=== PATIENT | male | born 1955 | race Caucasian/White ===

== ENCOUNTER → 2018-05-23 08:37 | Outpatient (CLI) | payer OTHER, SELFPAY | PROVIDERS: Family Provider Family Medicine; PCP Family Medicine; Visit Provider Nurse Practitioner Family | DX: E78.5 Hyperlipidemia, unspecified (principal) | CPT/HCPCS: 36415 ==

== ENCOUNTER → 2018-12-26 10:11 | Outpatient (CLI) | payer OTHER, SELFPAY ==
[2018-07-15 11:54] VITALS: BMI 26.9
[2018-12-26 12:43] LABS: ALB/GLOB Ratio 1.1 RATIO (0.9-2.4); AST(SGOT) 25 U/L (15-37); Alanine Aminotransfer ALT/SGPT 23 U/L (16-61); Albumin, Serum 3.8 g/dL (3.2-5.0); Alkaline Phosphatase 90 U/L (45-117); Anion Gap 11 (5-15); BUN 23 mg/dL (7-18); BUN/Creat Ratio 24.1 RATIO (10-20); Calcium,Total 8.7 mg/dL (8.5-10.1); Chloride 105 mmol/L (98-107); Creatinine, Serum 0.96 mg/dL (0.70-1.30); EST Glomerular Filtration Rate 84 mL/min (>60); Est Glom Filt Rate - Afr Amer 102 mL/min (>60); Globulin 3.5 g/dL (2.2-4.2); Glucose 86 mg/dL (74-106); Protein, Total 7.3 g/dL (6.4-8.2); Sodium Level 143 mmol/L (136-145)
== END ==
PROVIDERS: Family Provider Family Medicine; PCP Family Medicine; Referring Provider Family Medicine; Visit Provider Family Medicine
DX: E78.5 Hyperlipidemia, unspecified (principal); N40.0 Benign prostatic hyperplasia without lower urinary tract symptoms
CPT/HCPCS: 36415; 80053; 84153; G0103

== ENCOUNTER → 2019-08-22 09:28 | Outpatient (CLI) | payer MEDICARE, OTHER, SELFPAY ==
[2019-02-02 15:34] VITALS: BMI 28.5
[2019-08-22 12:06] LABS: Hemoglobin 16.1 g/dL (13.0-16.5); Mean Corp Hgb Conc 33.5 g/dL (32-36); Mean Corpuscular Hgb 31.5 pg (27.0-32.0); Mean Corpuscular Volume 93.9 fL (80-94); Mean Platelet Vol. 9.3 fl (6.2-12.0); Platelet Count 192 K/mm3 (150-450); RBC Distribution Width CV 14.1 % (11.6-14.6); RBC Distribution Width SD 49.3 fl (35.1-43.9); Red Blood Count 5.11 M/mm3 (4.6-6.2); White Blood Count 6.9 K/mm3 (4.4-11.0)
[2019-08-22 13:09] LABS: AST(SGOT) 32 U/L (15-37); Alanine Aminotransfer ALT/SGPT 31 U/L (16-61); Albumin, Serum 3.7 g/dL (3.2-5.0); Alkaline Phosphatase 92 U/L (45-117); Bilirubin, Direct 0.25 mg/dL (0.00-0.30); Cholesterol 180 mg/dL (200); Globulin 3.7 g/dL (2.2-4.2); High Density Lipoprotein 57 mg/dL; Protein, Total 7.4 g/dL (6.4-8.2); Triglycerides 125 mg/dL; Very Low Density Lipoprotein 25 mg/dL (5-40)
[2019-08-22 13:09] LABS: Anion Gap 10 (5-15); BUN 24 mg/dL (7-18); BUN/Creat Ratio 22.4 RATIO (10-20); Calcium,Total 8.6 mg/dL (8.5-10.1); Chloride 105 mmol/L (98-107); Creatinine, Serum 1.07 mg/dL (0.70-1.30); EST Glomerular Filtration Rate 74 mL/min (>60); Est Glom Filt Rate - Afr Amer 89 mL/min (>60); Glucose 86 mg/dL (74-106); Magnesium 2.1 mg/dL (1.6-2.6); Potassium 4.1 mmol/L (3.5-5.1); Sodium Level 139 mmol/L (136-145)
[2019-08-23 14:30] LABS: PSA, Free 1.05 ng/mL; PSA, Free % 7.1 % (.); PSA, Total Ultrasensitive 14.8 ng/mL (0.0-4.0)
== END ==
PROVIDERS: PCP Family Medicine; Referring Provider Family Medicine; Visit Provider Physician Assistant Medical
DX: I25.10 Atherosclerotic heart disease of native coronary artery without angina pectoris (principal); I10 Essential (primary) hypertension; E78.5 Hyperlipidemia, unspecified; Z95.2 Presence of prosthetic heart valve; R00.0 Tachycardia, unspecified; N40.0 Benign prostatic hyperplasia without lower urinary tract symptoms
CPT/HCPCS: 36415; 80048; 80061; 80076; 83735; 84153; 84154; 84443; 85027

== ENCOUNTER → 2019-08-22 09:56 | Outpatient (CLI) | payer MEDICARE, OTHER, SELFPAY ==
[2019-02-02 15:34] VITALS: BMI 28.5
--- NOTE | 2019-08-22 09:57 | ECHOCS_ITS ---
Reason For Study: BICUSPID AV Procedure This was a 2D Doppler, Color Flow transthoracic echocardiogram. The study was technically difficult. Contrast injection was performed. Exam performed in department. Left Ventricle Normal size and thickness. The estimated ejection fraction is 65 %. Stage 1 diastolic dysfunction. No regional wall motion abnormalities noted. Right Ventricle Normal size and thickness. Normal systolic function. Atria Normal left atrium. Normal right atrium. Normal atrial septum. Mitral Valve The mitral valve is structurally normal. No prolapse or stenosis seen. Tricuspid Valve Normal tricuspid valve. Trivial tricuspid valve insufficiency. Right ventricular systolic pressure estimated to be 29 mmHg. Aortic Valve Peak aortic valve gradient 23 mmHg. Mean aortic valve gradient 12 mmHg. Stable appearing bioprosthetic aortic valve apparatus. Pulmonic Valve Normal pulmonic valve. Great Vessels Normal aortic root. Normal arch. Normal inferior vena cava. Inferior vena cava collapse with sniff. Pericardium/Pleural No pericardial effusion. Medication 22 gauge I.V. with prn adaptor inserted into right arm. Diluted definity 2.5ml given slow IV push to enhance endocardial definition. MMode/2D Measurements & Calculations RVDd: 3.5 cm LVOT diam: 2.0 cm Ao root diam: 3.5 cm LVOT area: 3.1 cm2 LAV(MOD-bp): 37.1 ml SV(MOD-sp4): 58.1 ml LVAd ap4: 28.1 cm2 LAV(MOD-bp) Indexed: 17.3 ml/m2 EDV(MOD-sp4): 82.7 ml LAV(MOD-sp2): 28.0 ml EDV(sp4-el): 89.1 ml LAV(MOD-sp4): 43.4 ml LVAs ap4: 13.4 cm2 ESV(MOD-sp4): 24.6 ml ESV(sp4-el): 24.2 ml EF(MOD-sp4): 70.2 % EF(sp4-el): 72.8 % SV(sp4-el): 64.9 ml LA dimension(2D): 3.8 cm LA A4 area: 16.8 cm2 RA A4 area: 15.3 cm2 Time Measurements MV dec time: 0.29 sec Doppler Measurements & Calculations MV E max leonel: 65.1 cm/sec Lat Peak E' Leonel: 6.7 cm/sec Med Peak E' Leonel: 4.9 cm/sec MV A max leonel: 76.1 cm/sec E/E' lat: 9.7 E/E' med: 13.3 MV E/A: 0.86 Ao V2 max: 240.9 cm/sec LV V1 max: 124.8 cm/sec SV(LVOT): 85.1 ml Ao max P.2 mmHg LV V1 max P.2 mmHg Ao V2 mean: 161.1 cm/sec LV V1 mean P.2 mmHg Ao mean P.7 mmHg LV V1 mean: 98.6 cm/sec Ao V2 VTI: 39.7 cm LV V1 VTI: 27.2 cm TAINA(I,D): 2.1 cm2 TAINA(V,D): 1.6 cm2 PA V2 max: 93.2 cm/sec TR max leonel: 242.9 cm/sec TR max P.6 mmHg Interpretation Summary The estimated ejection fraction is 65 %. Stage 1 diastolic dysfunction. Trivial tricuspid valve insufficiency. Right ventricular systolic pressure estimated to be 29 mmHg. Stable appearing and normally functioning bioprosthetic aortic valve apparatus. Peak aortic valve gradient 23 mmHg. Mean aortic valve gradient 12 mmHg. Compared to echo report dated 04/15/2017, no appreciable change noted. The study was technically difficult. Contrast injection was performed. Ordering Physician: Valorie Dimas/Joey Dempsey Referring Physician: TOM VICKERS Performed By: Audrey Becker RDCS, RVT
== END ==
PROVIDERS: PCP Family Medicine; Referring Provider Physician Assistant Medical; Visit Provider Physician Assistant Medical
DX: I25.10 Atherosclerotic heart disease of native coronary artery without angina pectoris (principal); I10 Essential (primary) hypertension; E78.5 Hyperlipidemia, unspecified; Q23.1 Congenital insufficiency of aortic valve; Z95.2 Presence of prosthetic heart valve; N40.0 Benign prostatic hyperplasia without lower urinary tract symptoms; R00.0 Tachycardia, unspecified
CPT/HCPCS: 36415; 80048; 80061; 80076; 83735; 84153; 84154; 84443; 85027; 93306; Q9957; A4216; C8929

== ENCOUNTER → 2019-09-28 | Outpatient (CLI) | payer MEDICARE, OTHER, SELFPAY ==
[2019-02-02 15:34] VITALS: BMI 28.5
--- NOTE | 2019-09-28 | PROSBIL_PTH ---
PATIENT: FENG PARK LOC: [facility] U#:[id number] AGE/SX: 64/M ROOM: RE09/28/[address]: Dr. Johnnie Beyer MD : 1955 BED: DIS: 09/28/2019 SPEC #: [id number] RECD: 09/29/19 10:20 STATUS: DUGLAS INDRA #: [id number] WONG: 09/28/19 00:[address]: Johnnie Beyer DEPT: SURGICAL PATHOLOGY RECD BY: Marco Duff ENTERED: 09/29/19 10:21 SP TYPE: PROST BX RA DR: Dr. Everett Atnonio MD Tissues: A - PROSTATE RIGHT B - PROSTATE RIGHT C - PROSTATE RIGHT D - PROSTATE LEFT E - PROSTATE LEFT F - PROSTATE LEFT Procedures: PROSTATE BX HEADER OPERATION: Prostate biopsy PRE-OP DIAGNOSIS: Elevated PSA TISSUE SUBMITTED: A - Right apex, B - Right mid, C - Right base, D - Left apex, E - Left mid, F - Left base MICROSCOPIC DIAGNOSIS A. Right prostate, apex, core biopsy: Prostatic tissue, negative for malignancy. B. Right prostate, mid, core biopsy: Prostatic tissue, negative for malignancy. C. Right prostate, base, core biopsy: Prostatic tissue, negative for malignancy. D. Left prostate, apex, core biopsy: Prostatic tissue, negative for malignancy. E. Left prostate, mid, core biopsy: Prostatic tissue, negative for malignancy. F. Left prostate, base, core biopsy: Prostatic tissue, negative for malignancy. SJ:britni 10/02/19 MICROSCOPIC DESCRIPTION Slides are reviewed. GROSS DESCRIPTION A - Received is one container designated prostate, right apex. The specimen consists of one elongated fragment of light rivera-white soft tissue measuring 0.7 cm in length and 0.1 cm in diameter. The specimen is totally submitted in one cassette. B - Received is one container designated prostate, right mid. The specimen consists of two elongated fragments of light rivera-white soft tissue each measuring 1 cm in length and 0.1 cm in diameter. The specimen is totally submitted in one cassette. C - Received is one container designated prostate, right base. The specimen consists of two elongated fragments of light rivera-white soft tissue measuring 1 and 1.5 cm in length and 0.1 cm in diameter. The specimen is totally submitted in one cassette. D - Received is one container designated prostate, left apex. The specimen consists of one elongated fragment of light rivera-white soft tissue measuring 0.5 cm in length and 0.1 cm in diameter. The specimen is totally submitted in one cassette. E - Received is one container designated prostate, left mid. The specimen consists of two elongated fragments of light rivera-white soft tissue each measuring 0.8 cm in length and 0.1 cm in diameter. The specimen is totally submitted in one cassette. F - Received is one container designated prostate, left base. The specimen consists of two elongated fragments of light rivera-white soft tissue measuring 0.8 and 1.2 cm in length and 0.1 cm in diameter. The specimen is totally submitted in one cassette. / SJ:rg 09/29/19 TC:5 CPT: G0146
== END | disposition home or self-care (01) ==
LOC: LABSPEC 16:22
PROVIDERS: PCP Family Medicine; Referring Provider Urology; Visit Provider Urology
DX: R97.20 Elevated prostate specific antigen [PSA] (principal)
CPT/HCPCS: 88305; G0416

== ENCOUNTER → 2020-01-15 | Outpatient (CLI) | payer MEDICARE, OTHER, SELFPAY ==
[2019-02-02 15:34] VITALS: BMI 28.5
--- NOTE | 2020-01-15 07:47 | US_ITS ---
PROCEDURES: ULTRASOUND AORTA REASON FOR EXAM: Male, 64 years old. HX OF TOBACCO USE, HTN TECHNIQUE: Ultrasound evaluation of the aorta was performed with real-time and static rebollar-scale imaging. COMPARISON: None. FINDINGS: There is atherosclerotic plaque formation of the abdominal aorta. Aorta measures: Proximal 1.76 cm. Middle 1.93 cm. Distal 2.12 cm. Aorta measure transversely: Proximal 1.52 cm. Middle 2.25 cm. Distal 2.04 cm. Right iliac artery measures: 0.5 cm. Right iliac artery measure transversely: 0.9 cm. Left iliac artery measures: 0.5 cm. Left iliac artery measure transversely: 0.6 cm. There is no demonstrated aneurysm.. US/Aorta IMPRESSION: Peripheral calcifications of the abdominal aorta without aneurysm Electronically Signed: Michlee Guzman MD at 10:28 EDT , Service support ,
--- NOTE | 2020-01-15 07:47 | CT_ITS ---
STUDY: LOW DOSE CT LUNG CANCER SCREENING REASON FOR EXAM: Male, 64 years old. TOBACCO ABUSE, QUIT SMOKING 3 YRS AGO, SMOKED FOR 47 YRS X 1.5 PPD, RB=192, CABG RADIATION DOSAGE (If Supplied By Facility): CTDIvol = ( 3.02 ) mGy, DLP = ( 110.98 ) mGycm TECHNIQUE: No contrast was administered. Low dose technique was utilized (average mAS-38 and kVp 120). 1.25 mm axial source images with a slice interval of 1.25-mm were reconstructed in lung windows. 2.5 mm axial source images with a slice interval of 2.5-mm were reconstructed in lung windows. 5.0 mm axial source images with a slice interval of 5.0-mm were reconstructed in soft tissue windows. Nodule measured using lung windows on PACS and/or independent workstation with automated measurement of minimum and maximum diameter. Nodule measurement reported as average diameter rounded to the nearest whole number. Growth is defined as an increase ins size of greater than 1.5 mm. COMPARISON: Previous plain films NODULES: Lung windows show mildly hyperexpanded lungs with lead formation in the apices. There are 2 separate noncalcified right middle lobe nodules. Both measure 0.4 cm. One is located on axial image 152, the other image 169. Six-month follow-up recommended to assure stability. There is no organized drainable or suspicious groundglass opacification, there is likely chronic elevation of the left hemidiaphragm. There has been remote CABG. No pleural or pericardial effusions. There is a prominent retrocardiac hiatal hernia. Bony structures degenerative change CT/Low Dose CT Lung Screening IMPRESSION: Lung-RADS category 3 - Continue screening with LDCT in 6 months. IMPORTANT NOTES FOR USE: ACR Lung-RADS Version 1.0 Assessment Categories Release Date: September 25, 2013 Category: Coded 0-4 bases on nodule(s) with highest degree of suspicion. Negative screen is defined as categories 1 and 2; a positive screen is defined as categories 3 and 4. Category 3 and 4A nodules that are unchanged on interval CT should be coded as category 2, and individuals returned to screening in 12 months. Category 4X: Category 3 or 4 nodules with additional imaging findings that increase the suspicion of lung cancer, such as spiculation, GGN that doubles in size in 1 year, enlarged lymph notes, etc. Category Modifiers: S (significant finding unrelated to lung cancer) and C (prior history of treated lung cancer) may be added to the 0-4 Lung-RADS Electronically Signed: Michele Guzman MD at 10:19 EDT , Service support ,
== END | disposition home or self-care (01) ==
LOC: CT 07:46
PROVIDERS: PCP Family Medicine; Referring Provider Family Medicine; Visit Provider Family Medicine
DX: Z13.6 Encounter for screening for cardiovascular disorders (principal); Z87.891 Personal history of nicotine dependence
CPT/HCPCS: 76775; G0297

== ENCOUNTER → 2020-04-08 09:52 | Outpatient (CLI) | payer MEDICARE, OTHER, SELFPAY ==
[2019-02-02 15:34] VITALS: BMI 28.5
== END ==
PROVIDERS: PCP Family Medicine; Referring Provider Urology; Visit Provider Urology
DX: R97.20 Elevated prostate specific antigen [PSA] (principal)
CPT/HCPCS: 36415; 84153

== ENCOUNTER → 2020-04-12 09:48 | Outpatient (CLI) | payer MEDICARE, OTHER, SELFPAY ==
[2019-02-02 15:34] VITALS: BMI 28.5
[2020-04-12 10:25] LABS: Hematocrit 46.6 % (40-54); Mean Corp Hgb Conc 32.2 g/dL (32-36); Mean Corpuscular Hgb 30.5 pg (27.0-32.0); Mean Corpuscular Volume 94.7 fL (80-94); Mean Platelet Vol. 8.8 fl (6.2-12.0); Platelet Count 219 K/mm3 (150-450); RBC Distribution Width CV 13.9 % (11.6-14.6); RBC Distribution Width SD 48.8 fl (35.1-43.9); Red Blood Count 4.92 M/mm3 (4.6-6.2)
[2020-04-12 11:03] LABS: AST(SGOT) 17 U/L (15-37); Alanine Aminotransfer ALT/SGPT 20 U/L (16-61); Albumin, Serum 3.4 g/dL (3.2-5.0); Alkaline Phosphatase 101 U/L (45-117); Anion Gap 6 (5-15); BUN 21 mg/dL (7-18); BUN/Creat Ratio 19.1 RATIO (10-20); Bilirubin, Direct 0.22 mg/dL (0.00-0.30); Calcium,Total 8.5 mg/dL (8.5-10.1); Chloride 106 mmol/L (98-107); Cholesterol 154 mg/dL (200); EST Glomerular Filtration Rate 71 mL/min (>60); Est Glom Filt Rate - Afr Amer 86 mL/min (>60); Globulin 3.9 g/dL (2.2-4.2); Glucose 91 mg/dL (74-106); High Density Lipoprotein 49 mg/dL; Potassium 3.3 mmol/L (3.5-5.1); Protein, Total 7.3 g/dL (6.4-8.2); Sodium Level 139 mmol/L (136-145); Triglycerides 100 mg/dL; Very Low Density Lipoprotein 20 mg/dL (5-40)
== END ==
PROVIDERS: PCP Family Medicine; Referring Provider Urology; Visit Provider Urology
DX: Z01.812 Encounter for preprocedural laboratory examination (principal); E78.00 Pure hypercholesterolemia, unspecified
CPT/HCPCS: 36415; 80048; 80061; 80076; 85027

== ENCOUNTER → 2020-04-12 09:50 | Outpatient (CLI) | payer MEDICARE, OTHER, SELFPAY ==
[2019-02-02 15:34] VITALS: BMI 28.5
== END ==
PROVIDERS: PCP Family Medicine; Referring Provider Urology; Visit Provider Urology
DX: Z01.812 Encounter for preprocedural laboratory examination (principal); Z20.828 Contact with and (suspected) exposure to other viral communicable diseases; E78.00 Pure hypercholesterolemia, unspecified; E78.5 Hyperlipidemia, unspecified
CPT/HCPCS: 36415; 80048; 80061; 80076; 85027; 87635; C9803; U0003

== ENCOUNTER → 2020-04-19 | Outpatient (CLI) | payer MEDICARE, OTHER, SELFPAY ==
[2019-02-02 15:34] VITALS: BMI 28.5
--- NOTE | 2020-04-19 | IMM_PTH ---
PATIENT: FENG PARK LOC: [facility] U#:[id number] AGE/SX: 64/M ROOM: RE04/19/[address]: Dr. Johnnie Beyer MD : 1955 BED: DIS: 04/19/2020 SPEC #: [id number] RECD: 04/23/20 13:55 STATUS: DUGLAS REQ #: [id number] WONG: 04/19/20 00:[address]: Johnnie Beyer DEPT: IMMUNOHISTOCHEMISTRY RECD BY: Hawa Garsia ENTERED: 04/23/20 13:56 SP TYPE: IMMUNO OTHR DR: Dr. Everett Antonio MD Tissues: D - PROSTATE LEFT E - PROSTATE LEFT Procedures: 34BE12 (add) P40 (add) 34BE12 (initial) PHYSICIAN & INSTITUTION [place] [id number] SPECIMEN INFORMATION: Tissue Source: D - Left prostate, base, core biopsy, E - Left prostate, mid, core biopsy Clinical Info: BPH with lower urinary tract symptoms, elevated PSA Specimen Number: [id number] D & E CPT code: 11240, 17791 x3 METHODOLOGY: Deparaffinized sections of prefer/formalin-fixed tissue or PAP/DQ stained slides are incubated with monoclonal/polyclonal antibodies/oligonucleotide probes. Localization is made via biotin free immunoperoxidase method. Appropriate controls are performed and reacted as expected. Results on target cell population are indicated in the following table: RESULTS: ANTIBODY / CLONE RESULT Block D P40 (BC28) negative 34BE12 (34BE12) negative Block E P40 (BC28) negative 34BE12 (34BE12) negative These tests were developed and their performance characteristics determined by [facility]. They may not have been cleared or approved by the U.S. Food and Drug Administration. The FDA has determined that such clearance or approval is not necessary. The above immunohistochemical/dualISH markers are ordered and reviewed by the Pathologist. INTERPRETATION: D. Left prostate, base, core biopsy: Adenocarcinoma. E. Left prostate, mid, core biopsy: Adenocarcinoma. SJ:britni 04/24/20
--- NOTE | 2020-04-19 09:21 | PROSBIL_PTH ---
PATIENT: FENG PARK LOC: [facility] U#:[id number] AGE/SX: 64/M ROOM: RE04/19/[address]: Dr. Johnnie Beyer MD : 1955 BED: DIS: 04/19/2020 SPEC #: [id number] RECD: 04/19/20 15:18 STATUS: DUGLAS INDRA #: [id number] WONG: 04/19/20 09:[address]: Johnnie Beyer DEPT: SURGICAL PATHOLOGY RECD BY: Pam Wynn ENTERED: 04/22/20 07:31 SP TYPE: PROST BX RA DR: Dr. Everett Antonio MD [facility] Tissues: A - PROSTATE RIGHT B - PROSTATE RIGHT C - PROSTATE RIGHT D - PROSTATE LEFT E - PROSTATE LEFT F - PROSTATE LEFT Procedures: PROSTATE BX HEADER OPERATION: Cystoscopy and transrectal ultrasound-guided biopsy of prostate PRE-OP DIAGNOSIS: BPH with lower urinary tract symptoms, elevated PSA TISSUE SUBMITTED: A - Right base, B - Right mid, C - Right apex, D - Left base, E - Left mid, F - Left apex MICROSCOPIC DIAGNOSIS A. Right prostate, base, core biopsy: Mild chronic inflammation. B. Right prostate, mid, core biopsy: Mild chronic inflammation. C. Right prostate, apex, core biopsy: Benign prostatic tissue. D. Left prostate, base, core biopsy: Adenocarcinoma. Xi grade: 6 (3+3) Cores involved: 1 out of 3 Tissue involved: 20% Greatest tumor length: 4.5 millimeters (discontinuous). See comment. E. Left prostate, mid, core biopsy: Adenocarcinoma. Xi grade: 6 (3+3) Cores involved: 1 out of 4 Tissue involved: 5% Greatest tumor length: 2.8 millimeters (discontinuous). See comment. F. Left prostate, apex, core biopsy: Mild chronic inflammation. AM:britni 04/23/20 COMMENT D & E. Immunohistochemistry ([id number]) supports the above diagnosis. MICROSCOPIC DESCRIPTION Slides are reviewed. GROSS DESCRIPTION A - Received is one container designated prostate, right base. The specimen consists of three elongated fragments of light rivera-white soft tissue each measuring 1.5 cm in length and 0.1 cm in diameter. The specimen is totally submitted in one cassette. B - Received is one container designated prostate, right mid. The specimen consists of three elongated fragments of light rivera-white soft tissue each measuring 1 cm in length and 0.1 cm in diameter. The specimen is totally submitted in one cassette. C - Received is one container designated prostate, right apex. The specimen consists of two elongated fragments of light rivera-white soft tissue each measuring 1 cm in length and 0.1 cm in diameter. The specimen is totally submitted in one cassette. D - Received is one container designated prostate, left base. The specimen consists of three elongated fragments of light rivera-white soft tissue each measuring 1.5 cm in length and 0.1 cm in diameter. The specimen is totally submitted in one cassette. E - Received is one container designated prostate, left mid. The specimen consists of two elongated fragments of light rivera-white soft tissue each measuring 1 cm in length and 0.1 cm in diameter. The specimen is totally submitted in one cassette. F - Received is one container designated prostate, left apex. The specimen consists of multiple irregular and elongated fragments of pink-yellow soft tissue that in aggregate measure 2 x 1.5 x 0.1 cm. The specimen is totally submitted in one cassette. / AM:britni 04/22/20 TC:0 CPT: G0146
== END | disposition home or self-care (01) ==
LOC: LABSPEC 16:00
PROVIDERS: PCP Family Medicine; Referring Provider Urology; Visit Provider Urology
DX: N40.1 Benign prostatic hyperplasia with lower urinary tract symptoms (principal); R97.20 Elevated prostate specific antigen [PSA]
CPT/HCPCS: 88305; 88341; 88342; G0416

== ENCOUNTER → 2020-05-03 06:43 | Outpatient (CLI) | payer MEDICARE, OTHER, SELFPAY ==
[2019-02-02 15:34] VITALS: BMI 28.5
--- NOTE | 2020-05-03 06:44 | CT_ITS ---
STUDY: CT ABDOMEN AND PELVIS WITH CONTRAST REASON FOR EXAM: Male, 64 years old. PROSTATE CA--ELEVATED PSA -- SURG-CABG -- +HTN-RX CONTROLLED RADIATION DOSAGE (If Supplied By Facility): CTDIvol = ( 16.75 ) mGy, DLP = ( 860.19 ) mGycm TECHNIQUE: Transaxial images were obtained from the dome of the diaphragm to the symphysis pubis without oral contrast. IV 100mL Isovue-370 was administered. Sagittal and coronal images were reconstructed. Individualized dose optimization techniques were used for this CT. COMPARISON: Chest CT 01/15/2020 FINDINGS: Small nodules in the right middle lobe are grossly similar since prior chest CT. Mild fibrotic changes in the lung bases. The visualized portions of the heart are within normal limits. Well-defined simple cysts of the left hepatic lobe are stable since prior CT. No suspicious cystic or solid hepatic masses. Normal gallbladder and extrahepatic biliary system. Normal spleen. Normal pancreas. Normal bilateral adrenal glands. Normal right kidney. Normal left kidney. Normal visualized stomach. Normal small intestine. There are multiple colonic diverticula consistent with diverticulosis. The appendix is visualized and appears normal. There is diffuse atherosclerotic calcification of the abdominal aorta, without a demonstrated aneurysm. Normal inferior vena cava. Normal retroperitoneum. Poorly distended urinary bladder. There prostate calcifications. No pelvic sidewall adenopathy/solid mass. Normal abdominal wall. There is a 6 mm sclerotic lesion of the left side of the sacrum. Degenerative changes of the lumbar spine. CT/Abdomen/Pelvis WITH Contrast IMPRESSION: 1. No intra-abdominal/pelvic mass/metastasis. 2. 6 mm sclerotic lesion of the left side of the sacrum. Although nonspecific, likely represents a bone island. If there is clinical suspicion for osseous metastasis, recommend bone scan and/or pelvic MRI. Electronically Signed: Favian Garibay MD ([place]) at 12:04 EST , Service support ,
== END ==
PROVIDERS: PCP Family Medicine; Referring Provider Urology; Visit Provider Urology
DX: C61 Malignant neoplasm of prostate (principal)
CPT/HCPCS: 74177; Q9967

== ENCOUNTER → 2020-05-06 08:21 | Outpatient (CLI) | payer MEDICARE, OTHER, SELFPAY ==
[2019-02-02 15:34] VITALS: BMI 28.5
--- NOTE | 2020-05-06 08:22 | NM_ITS ---
CLINICAL: 64-year-old male history of carcinoma of the prostate. WHOLE BODY 99m Tc MDP RADIONUCLIDE BONE SCINTIGRAPHY COMPARISON: CT of the abdomen-pelvis report 05/03/2020 FINDINGS: Following the intravenous administration of 25.8 mCi of 99m Tc MDP, whole body bone images reveal: 1. Increased radiopharmaceutical concentration is defined in the mid cervical spine posteriorly on the left and right, first and ninth thoracic vertebra, second lumbar vertebra, bilateral wrists and hands, the acromioclavicular and sternoclavicular compartments of both shoulders, the left hip involving the inferior anterior acetabulum. 2. Intense increased tracer concentration is defined in the right upper extremity in the distribution of the distal brachium crossing the apparent joint space to the proximal antebrachial. 3. The remaining skeletal structures are scintigraphically unremarkable with normal-appearing renal images and urinary bladder activity identified. NM/Bone Scan Whole Body IMPRESSION: 1. The increase in radiopharmaceutical concentration defined in the cervical, thoracic and lumbar spine, bilateral shoulders, right and left wrists, both hands is most consistent with degenerative arthritis. 2. Facilitated radiotracer distribution defined in the right upper extremity likely represents injection artifact. Correlation with plain film radiography may be of benefit if clinically indicated. 3. There is no definitive typical scintigraphic evidence of diffuse axial skeletal metastatic disease on the current examination. Electronically Signed: Brock Washburn DO at 22:20 EST Tel , Service support ,
== END ==
PROVIDERS: PCP Family Medicine; Referring Provider Urology; Visit Provider Urology
DX: C61 Malignant neoplasm of prostate (principal)
CPT/HCPCS: 78306

== ENCOUNTER 2020-06-19 05:51 | Day surgery (SDC) | payer MEDICARE, OTHER, SELFPAY ==
[2019-02-02 15:34] VITALS: BMI 28.5
--- NOTE | 2020-06-14 08:17 | EKG12_ITS ---
Test Reason : PRE OP Blood Pressure : / mmHG Vent. Rate : 082 BPM Atrial Rate : 082 BPM P-R Int : 174 ms QRS Dur : 128 ms QT Int : 422 ms P-R-T Axes : 051 148 022 degrees QTc Int : 493 ms Normal sinus rhythm Right bundle branch block Left posterior fascicular block Bifascicular block Abnormal ECG Confirmed by ARISTIDES LEGER, MIC ([id number]), film editor VALERIE HERNANDEZ ([id number]) on 06/17/2020 10:47:23 AM Referred By: Johnnie Beyer Confirmed By:MIC IRVING MD
[2020-06-14 08:41] LABS: Potassium 4.2 mmol/L (3.5-5.1)
[2020-06-14 08:49] LABS: Partial Thromboplast Time 26.8 Seconds (24.1-36.2)
[2020-06-19] VITALS (14 sets, daily range): BP systolic 81–134; BP diastolic 52–102; PULSE 72–98; RESP 16–20; TEMP 36.1–36.7; O2SAT 92–99; BMI 24.5
--- NOTE | 2020-06-19 | PROST_PTH ---
PATIENT: FENG PARK LOC: [facility] [place] U#:[id number] AGE/SX: 64/M ROOM: RE06/19/[address]: Dr. Johnnie Beyer MD : 1955 BED: DIS: 06/20/2020 SPEC #: [id number] RECD: 06/19/20 11:46 STATUS: DUGLAS REKrista #: [id number] WONG: 06/19/20 00:[address]: Johnnie Beyer DEPT: SURGICAL PATHOLOGY RECD BY: Marco Duff ENTERED: 06/20/20 07:08 SP TYPE: PROSTATE OTHR DR: Dr. Everett Antonio MD Tissues: A - Prostate, NOS B - Adipose tissue Procedures: Surgery Specimen Level III Surgery Specimen Level HEADER OPERATION: Laparoscopic robotic assisted radical prostatectomy PRE-OP DIAGNOSIS: Prostate cancer TISSUE SUBMITTED: A - Prostate, B - Fat over prostate MICROSCOPIC DIAGNOSIS A. Prostate, radical prostatectomy: Prostatic adenocarcinoma. See cancer summary in the comment section. B. Fat over prostate: Negative for carcinoma. SJ:rg 06/21/20 COMMENT PROSTATE CANCER (RADICAL) SUMMARY Procedure: Radical Prostatectomy Prostate Size: Weight: 46 gm Size: 5 cm transversely, 4 cm anterior-posteriorly and 4 cm craniocaudally Histologic type: Acinar adenocarcinoma Histologic grade: Grade group 2 (Lothian score 3+4=7) Tumor Quantitation: Estimated percent of the prostate involved by tumor: ~30% Tumor size: Right lobe 2.5 x 1 x 0.5 cm (measured microscopically with focal area of discontinuous tumor) Left lobe 2.8 x 2 x 1 cm (measured microscopically) Extraprostatic Extension: Not identified Urinary Bladder Neck Invasion: Not identified Seminal Vesicle Invasion: Not identified Lymphvascular Invasion: Not identified Perineural Invasion: Present, focal Margins: Margin uninvolved by invasive carcinoma. Treatment Effect: No known presurgical therapy Regional Lymph Nodes: No lymph nodes submitted or found. Additional Pathologic Findings: Focal basal cell hyperplasia and benign glandular hyperplasia. - Focal mild chronic inflammation. Ancillary studies: Not performed PATHOLOGIC STAGE: pT2 pNx pMx The above summary is in compliance with [employer] [place] (CAP) Cancer Protocols Checklist and [place] [employer] Committee on Cancer (AJCC), Staging Manual, 8th Ed. Please make reference to previous specimen ([id number]) left prostate, base and left prostate, mid, core biopsies with diagnosis of adenocarcinoma. The tumor is present in both right and left lobes involving apical, mid and basal portions of the prostate. Small pieces of seminal vesicle are noted, only microscopically. Case has been reviewed in consultation with Dr. Najera who concurs with the above diagnosis. IDC:AM MICROSCOPIC DESCRIPTION Slides are reviewed. GROSS DESCRIPTION A - Received in fixative is one container labeled with the patient's name and designated prostate. The specimen consists of a radical prostatectomy specimen consisting of prostate and attached right vas deferens and portions of left vas deferens and also detached portion of vas deferens. The seminal vesicles are not identified grossly. The entire specimen weighs 46 gm. The prostate measures 5 cm transversely, 4 cm anterior-posteriorly and 4 cm craniocaudally. The right vas deferens measures 3.5 cm in length and 0.4 cm in diameter. Portion of attached left vas deferens measures 1 cm in length and 0.5 cm in diameter. Detached portion of vas deferens measures 2.5 cm in length and 0.5 cm in diameter. The prostate is inked as follows: anterior - yellow, posterior - black, right lateral - blue and left lateral - green. The right vas deferens is inked as follows: anterior - blue and posterior - black. The left vas deferens is inked as follows: anterior - green and posterior - black. Serial sections of prostate do not reveal any mass lesion. Merchandise Coordinator sections are submitted in 20 cassettes as follows: 1 - right and left vas deferens including detached portion of vas deferens, 2 - apical margin, enface, 3 & 4 - basal margin, enface, 5-10 - apical portion prostate, 11-14 - mid portion prostate, 15-20 - basal portion prostate. B - Received in fixative is one container labeled with the patient's name and designated fat over prostate. The specimen consists of two pieces of yellow adipose tissue that in aggregate measure 8 x 3 x 0.8 cm. No mass lesion is identified. Merchandise Coordinator sections are submitted in one cassette. / SJ:britni 1/21/21 TC:0 CPT: 14702, 74037
[2020-06-19] MEDS: Lactated Ringers 1,000 ML 100 ML IV (06:49)
[2020-06-19] MEDS: Lactated Ringers 1,000 ML 30 ML IV ×2 (06:52→06:53)
[2020-06-19] MEDS: Cefazolin 2 GM in 0.9% Normal Saline 100 ML IV (07:26)
--- NOTE | 2020-06-19 07:33 | PCM.HP.STD ---
Problem List (1) Prostate cancer Status: Acute History of Present Illness Date of Admission: 06/19/20 Chief Complaint: Prostate cancer The patient is a 64 year old male who has prostate cancer with discussed the options of management for his cancer including active surveillance, radiation therapy, radioactive seed implants, and other treatment options. He is elected to undergo radical prostatectomy with bilateral nerve sparing. He understands is possible that he may experience erectile dysfunction after the surgery and also possible may may have urinary incontinence at the surgery either temporary or permanent. He underwent a bowel prep all his questions were answered in the preoperative setting and working to proceed with surgery. Past Medical History Past Medical History (Chronic Problems): Chronic Problems (Last Reviewed 08/03/19 @ 13:52 by Valorie Dimas PA, PA) Hypertension (Chronic) History of left heart catheterization (Chronic) Nonobstructive CAD per [facility] 12/20/2009 Hyperlipidemia (Chronic) Nonrheumatic aortic (valve) insufficiency (Chronic) Nonrheumatic mitral (valve) insufficiency (Chronic) History of bicuspid aortic valve (Chronic) Atherosclerotic heart disease of [place] coronary artery without angina pectoris (Chronic) Nonobstructive CAD per [facility] 12/20/2009; &[facility] 02/12/2016 H/O aortic valve replacement (Chronic) 04/09/2016 @ [facility]: [address] [employer] Paroxysmal atrial fibrillation (Chronic) Medical History: Medical History (Last Reviewed 06/19/20 @ 07:[address] Johnnie Beyer MD) Hypertension (Chronic) I10 Hyperlipidemia (Chronic) E78.5 Nonrheumatic aortic (valve) insufficiency (Chronic) I35.1 Nonrheumatic mitral (valve) insufficiency (Chronic) I34.0 History of bicuspid aortic valve (Chronic) Z87.74 Atherosclerotic heart disease of [place] coronary artery without angina pectoris (Chronic) I25.10 Nonobstructive CAD per [facility] 12/20/2009; &[facility] 02/12/2016 Paroxysmal atrial fibrillation (Chronic) I48.0 Allergies Sulfa (Sulfonamide Antibiotics) Adverse Reaction (Intermediate, Verified 06/19/20 06:19) Rash Home Medications: Ambulatory Orders Medication Instructions Recorded Aspirin [Adult Low Dose Aspirin EC] 81 mg PO DAILY 02/12/16 losartan 25 mg tablet 25 mg PO QDAY #30 tab 06/14/17 simvastatin 20 mg tablet 20 mg PO QHS #30 tab 06/14/17 fluticasone propionate 50 1 spray INTRANASAL QDAY PRN 12/27/17 mcg/actuation nasal spray,suspension montelukast 10 mg tablet 10 mg PO DAILY tab 08/03/19 Surgical History: Surgical History (Last Reviewed 06/19/20 @ 07:[address] Johnnie Beyer MD) History of left heart catheterization (Chronic) Z98.890 Nonobstructive CAD per [facility] 12/20/2009 H/O aortic valve replacement (Chronic) Z95.2 04/09/2016 @ [facility]: [address] [employer] History of right and left heart catheterization Z98.890 R&[facility] 02/12/2016 @ [facility] per Dr. Dempsey Surgical History: - - Aortic valve replacement 04/09/2016 Smoking Status: Former smoker Tobacco Use: Non-smoker Review of Systems Constitutional: Denies: Chills, Fever, Weight Change HEENT: Denies: Head Aches, Sinus Congestion, Sinus Drainage Cardiovascular: Denies: Chest Pain, Palpitations Respiratory: Denies: Cough, Shortness of breath at rest, Sputum production Gastrointestinal: Denies: Abdominal Pain, Nausea, Vomiting Genitourinary: Denies: Dysuria Musculoskeletal: Denies: Joint Pain, Joint Tenderness Skin: Denies: Rash, Wounds Neurological: Denies: Numbness, Tingling, Focal weakness Psychiatric: Denies: Anxiety, Depression, Homicidal Ideations, Suicidal Ideations Hematologic/ Lymphatic: Denies: Easy Bruising, Easy Bleeding VTE Information - Inpt Only VTE Present on Admission: No - Physical Exam Vitals/I&O's: Vital Signs Temp Pulse Resp BP Pulse Ox 97.6 F L 85 16 111/75 97 06/19/20 06:22 06/19/20 06:22 06/19/20 06:22 06/19/20 06:22 06/19/20 06:22 Oxygen Delivery Method Room Air Weight: 89.3 kg Body Mass Index (BMI) 24.5 Intake and Output for Last 24 Hours 06/17/20 06/18/20 06/19/20 23:59 23:59 23:59 Intake Total 5 / 5 Balance 5 / 5 General: Alert, Oriented x3, Cooperative HEENT: Atraumatic, PERRLA, EOMI, Normocephalic Neck: Supple, No JVD, Negative Carotid Bruits Lungs: Clear to auscultation, Normal air movement Cardiovascular: Regular rate, No murmurs Abdomen: Bowel Sounds Present, Soft, Non Tender Extremities: No edema, Capillary Refill Less than 3 Seconds Skin: No rashes, No breakdown Musculoskeletal: No Tenderness to Palpation of Joints or Extremities Neurological: Cranial nerves II-XII grossly intact Psych/Mental Status: Normal Affect, Appropriate Microbiology Past 72 Hours 06/18/20 08:10 Interface Orders SARS-CoV-2 Antigen (Rapid) - Final Current Medications Cefazolin Sodium 2 gm/ Sodium (Chloride) 110 mls @ 150 mls/hr IV PREOP ONE Stop: 06/19/20 07:43 Lactated Ringer's () 1,000 mls @ 100 mls/hr IV .Q10H [facility] Last Admin: 06/19/20 06:52 Dose: 30 mls/hr Documented by: Lactated Ringer's () 1,000 mls @ 30 mls/hr IV .[id number] [facility] Last Admin: 06/19/20 06:53 Dose: 30 mls/hr Documented by: Assessment/Plan All Active Problems (Last Reviewed 08/03/19 @ 13:52 by Valorie JAVIER, PA) Prostate cancer (Acute) 64-year-old male with prostate cancer plan to proceed with radical prostatectomy with nerve sparing. He signed the consent form all the questions were addressed.
--- NOTE | 2020-06-19 07:36 | DCINST_ITS ---
Discharge Diet: Light diet - advance as tolerated Discharge Activity: May not drive while taking narcotic pain medications., May Shower Lifting Restrictions: no lifting 6 weeks Call your doctor if your incision/area has: Continuous Slow Oozing, Sudden Increased Bleeding, Increased Pain/ Swelling, Increased Redness, Foul Smelling Discharge, Swelling at the incision site Call your doctor if you observe: Fever of 101 or Higher Suture Line Care: Avoid Pulling/Pushing, Avoid Pinching/Bending Catheter: Mcgraw to leg bag, Mcgraw to large bag Drain: [place] Allergies/Adverse Reactions: Allergies Sulfa (Sulfonamide Antibiotics) Adverse Reaction (Intermediate, Verified 06/19/20 06:19) Rash Medications to take at Discharge Aspirin [Adult Low Dose Aspirin EC] 81 mg PO DAILY 02/12/16 losartan 25 mg tablet 25 mg PO QDAY #30 tab 06/14/17 simvastatin 20 mg tablet 20 mg PO QHS #30 tab 06/14/17 fluticasone propionate 50 mcg/actuation nasal spray,suspension 1 spray INTRANASAL QDAY PRN 12/27/17 montelukast 10 mg tablet 10 mg PO DAILY tab 08/03/19 Ciprofloxacin [Cipro] 500 mg PO BID #20 tab 06/19/20 Docusate Sodium [Colace] 100 mg PO DAILY #20 cap 06/19/20 Hydrocodone Bitart/Apap 5-325 [[place] 5MG-325MG] 1 tablet PO Q4H PRN PRN 7 Days #14 tablet 06/19/20 The following prescriptions were given: Ciprofloxacin [Cipro] 500 mg PO BID #20 tab Transmission Status: Pending to [facility] Docusate Sodium [Colace] 100 mg PO DAILY #20 cap Transmission Status: Pending to [facility] Hydrocodone Bitart/Apap 5-325 [[place] 5MG-325MG] 1 tablet PO Q4H PRN PRN 7 Days #14 tablet PRN Reason: Pain Transmission Status: Sent to [facility] Primary Care Physician: Edgar Antonio MD [Primary Care Provider] - Test Results: Test results from this visit will be discussed in further detail at your follow- up appointment, if applicable. Please Follow Up With: Johnnie Beyer MD When: please call to make an appointment. Proposed Discharge Date: 06/19/20
[2020-06-19] MEDS: Bupivacaine Mpf 0.5% 30 ML VIAL (08:00)
--- NOTE | 2020-06-19 11:16 | PCM.OPRPT ---
Problem List (1) Prostate cancer Status: Acute Report of Operation Date of Procedure: 06/19/20 Pre-Operative Diagnosis: Prostate cancer Post-Operative Diagnosis: Same Surgery/Procedure Performed:: Laparoscopic robotic assisted radical prostatectomy with bilateral nerve sparing Description of Surgical Findings:: Patient presented to the hospital for treatment of his prostate cancer with radical prostatectomy. In the preoperative setting we discussed the options of management for his prostate cancer including active surveillance, radiation treatments, radioactive seeds, and radical robotic prostatectomy. We discussed the side effects of surgery including the potential to lose erections. We discussed the potential to have bladder control problems with stress incontinence which can be temporary or permanent. We discussed the risk of the surgery including the risk of general anesthetic, risk of bleeding, risk of infection, and risk of formation of hernia either incisional hernia or inguinal hernia. After long discussion with the patient the preoperative setting and also reviewed this in the preop area patient signed the consent form and we proceeded with a radical prostatectomy. Patient was taken back to the operating room he was identified, time out procedure was performed and he was placed supine on the table he underwent general anesthesia with intubation. The abdomen was shaved prepped and draped in usual sterile fashion as well as the penis and testicles. A 16 Georgian catheter was placed into the bladder with clear return of urine. I then made an incision in the umbilicus and dissected down to the fascia advance a Veress needle into the peritoneal cavity and insufflated the peritoneal cavity with CO2 gas. I then placed a 12 mm trocar above the umbilicus. I then visualized the placement of the rest of the trochars, I placed a right arm robotic trocar, and air seal trocar, a suction port 5 mm trocar. And on the left side I placed 2 robotic arms. Once all the trochars were in placed the patient was put in steep Trendelenburg. And the robot was docked the arms were docked and then I placed the 0 degree camera through the robotic arm and also used a 30 degree camera during certain parts of the case. I used scissors in the right arm, prograsp in the third arm, and a bipolar in the second arm. Initial dissection was to free the sigmoid colon off the lateral wall this was done by meticulously dissecting off the peritoneum and the sigmoid colon off the left lateral wall. This then allowed the prograsp to retract the sigmoid colon out of the pelvis. I then went below the bladder and identified the vas deferens incised the peritoneum over the vas deferens and traced the vas deferens below the bladder to the prostate and identified the right and left vasa deferens. Below behind the vas deferens then the seminal vesicles were identified. I then dissected the seminal vesicle free using pinpoint electrocautery and then we identified the other seminal vesicle and then dissected this using pinpoint electrocautery I then elevated the vas deferens and several vesicles off the prostate and was able to sweep the Denonvilliers' fascia off the prostate posteriorly all the way up to the apex of the prostate. Working laterally I made sure I went as lateral as possible to sweep the Denonilliers' fascia off the posterior aspect of the prostate and worked my way back, I then transected the vas deferens and the left and right side the seminal vesicles were then dissected free. And then I pulled out of the pelvis. At this point the bladder was dropped creating the space of Retzius with the bladder on traction with the fourth arm. Using electrocautery I dissected in the anterior peritoneal fascia and then created the space of Retzius dissecting towards the prostate. The prostate was then cleaned of the fat over the prostate and the fourth arm was used to retract the bladder and place traction. I then identified the endopelvic fascia that was overlying the prostate on the right side I incised endopelvic fascia and wwept the levator muscles off the prostate all the way to the apex on the right side, I then worked my way anterior to the prostate then transected to the puboprostatic ligament and the underlying dorsal vein complex was not injured. I then went to the other side and identified the endopelvic fascia in the left side incised in a fashion the left side and swept the levator muscles off the prostate on the left side all the way up to the apex the puboprostatic ligament on the left side was then dissected and transected I then freed up the fascia overlying the dorsal vein complex. I then used the prograsp to encircled the dorsal vein complex with the prograsp and then switched over to the right and left needle electric pile driver operator and suture ligated the dorsal vein complex above the prograsp. The prograsp was then placed back in the bladder and put back on traction I then identified the junction between the bladder and the prostate and dissected down between the bladder and the prostate untilI came across the catheter we then dissected posteriorly to the bladder and prostate to free the prostate and the bladder off each other and the muscles between the bladder and the prostate was then cauterized to free up the bladder. I then went on top of the prostate and identified the endopelvic fascia on top of the prostate this was incised all the way to the apex and then we swept the endopelvic fascia off the prostate laterally and then identified the plane between endopelvic fascia and the prosthetic pseudocapsule and swept the fascia laterally until reaching the course of the neurovascular bundles and then released the neurovascular bundles off the prostate laterally all the way back in a retrograde fashion back to the junction of the pedicles then the prostate was placed on traction with the fourth arm pulling the prostate laterally identified the pedicle to the prostate between the seminal vesicles and the and the neurovascular bundle and this was taken using sequential small hemolocks. After the pedicle was taken the I then dissected underneath the prostate sweeping the neurovascular bundle off the prostate we able to follow the nice smooth plane between the neurovascular bundle and the pseudocapsule all the way to the apex once this was identified we swept this up all the way up to the apex and there was perfect nerve sparing on the right side. Then went to the left side the prostate identified the endopelvic fascia over the left side of the prostate I incised the endopelvic fascia all the way to the apex and then swept this off laterally I then released the neurovascular bundles on the left side of the prostate sweeping him off the prostate laterally I then elevated the prostate up up with the prostate and traction identified the pedicle to the prostate on the left side and then the pedicles taken with sequential Hem-o-herminio clips I then was able to dissected the neurovascular bundle off the left posterior aspect the prostate this was a perfect dissection all the way up on the left side following the pseudocapsule all the way up the left side until we reached the apex of the prostate. After the both the neurovascular bundles has been swept off the posterior to the prostate I then went above and transected the dorsal vein complex there was minimal to no bleeding but then dissected down to the urethra and circumfencial dissected around the urethra I then switched the right and left arm with the needle drivers and I suture-ligated the dorsal vein complex again just to ensure that there was no bleeding from the dorsal vein complex. I then transected through the urethra with scissors and the prostate was then freed and released off the prostate bed and put an Endo Catch bag. At this point the bladder neck was reconstructed and then an anastomosis was performed between the prostate and the bladder with a 3 oh V-Loc stitch in a running fashion starting from the bladder neck at the 6 o'clock position working to the 12 o'clock position with continuous stitches to complete a perfect anastomosis between the bladder and the prostate. I then placed a new catheter into the bladder, an 18 Georgian table mountain tip catheter flushed the bladder and there was no leakage from the anastomosis I put 10 cc in the balloon and pulled it up pulled back gently. I then ensured that there was no bleeding from the dorsal vein complex no bleeding from the neurovascular bundles FloSeal was placed as necessary once hemostasis was ensured and adequate then I placed the bladder back in position in the pelvis the prostate was exchanged to the camera port I closed the air seal port with a 10 12 Serjio Flores stitch. And the extracted the prostate through the umbilicus. The robot was undocked all the ports were removed under direct visualization then closed the extraction site with 0 Vicryl with a CT1 needle once the extraction site was closed. I then closed all the incision with subcuticular stitches with 4-0 Monocryl and then bandages were placed on the incisions catheter was flushed to make sure it was draining well there was no clots and it was crystal clear patient's anesthetic was reversed he was extubated and taken back to the PACU in stable condition all the needles and sponges and instruments were accounted for. Blood loss was minimal and the drain was a 18 Georgian Mcgraw catheter. No other surgical drain was left. I was present during the entire case. Type of Anesthesia:: General Drains: 18 Georgian table mountain tip catheter - Admit VTE Documentation VTE Present on Admission: No VTE Mechan Device Prophylaxis: SCD's
[2020-06-19] MEDS: Lactated Ringers 1,000 ML 125 ML IV ×2 (11:52→17:17)
[2020-06-19] MEDS: Ketorolac 15 MG/ML Vial IV ×2 (12:52→20:56)
[2020-06-19] MEDS: Montelukast 10 MG Tablet PO (14:35)
[2020-06-19] MEDS: Ciprofloxacin 400 MG/200 ML BAG 200 MG IV (14:35)
[2020-06-19] MEDS: 0.9% Saline Lock 10 ML Syringe IV (17:18)
[2020-06-19] MEDS: Ondansetron 4 MG/2 ML Vial IV (17:18)
--- NOTE | 2020-06-19 17:36 | NURSING ---
c/o abd pressure and nausea, irrigated with 100 cc of ns, with quick return, slightly bloody but no clots noted. c/o pressure below umbilical. and tender to touch. Bulging noted.
--- NOTE | 2020-06-19 17:48 | NURSING ---
offered pain, rates pain 5/10, declines pain med at this time.
[2020-06-19] MEDS: Ciprofloxacin 500 MG Tablet PO (20:56)
[2020-06-19] MEDS: Atorvastatin Calcium 10 MG Tablet PO (20:56)
[2020-06-20] MEDS: Lactated Ringers 1,000 ML 125 ML IV ×2 (01:16→04:31)
[2020-06-20] MEDS: Ketorolac 15 MG/ML Vial IV ×2 (02:10→08:11)
[2020-06-20 03:42] VITALS: BP 143/79; PULSE 93; RESP 16; TEMP 36.7; O2SAT 95
[2020-06-20] MEDS: Acetaminophen 325 MG Tablet PO (05:33)
[2020-06-20 06:57] LABS: Hematocrit 39.4 % (40-54); Hemoglobin 13.2 g/dL (13.0-16.5); Mean Corp Hgb Conc 33.5 g/dL (32-36); Mean Corpuscular Hgb 31.6 pg (27.0-32.0); Mean Corpuscular Volume 94.3 fL (80-94); Mean Platelet Vol. 8.9 fl (6.2-12.0); Platelet Count 225 K/mm3 (150-450); RBC Distribution Width CV 13.4 % (11.6-14.6); RBC Distribution Width SD 46.1 fl (35.1-43.9); Red Blood Count 4.18 M/mm3 (4.6-6.2); White Blood Count 6.2 K/mm3 (4.4-11.0)
[2020-06-20 07:27] LABS: Anion Gap 5 (5-15); BUN 18 mg/dL (7-18); BUN/Creat Ratio 16.1 RATIO (10-20); Calcium,Total 8.2 mg/dL (8.5-10.1); Chloride 103 mmol/L (98-107); Creatinine, Serum 1.12 mg/dL (0.70-1.30); EST Glomerular Filtration Rate 70 mL/min (>60); Est Glom Filt Rate - Afr Amer 84 mL/min (>60); Estimated Creatinine Clearance 78.59 ml/min; Glucose 88 mg/dL (74-106); Sodium Level 134 mmol/L (136-145)
[2020-06-20 08:00] VITALS: BP 127/67; PULSE 84; RESP 16; TEMP 36.5; O2SAT 94
[2020-06-20] MEDS: 0.9% Saline Lock 10 ML Syringe IV (08:11)
[2020-06-20] MEDS: Ciprofloxacin 500 MG Tablet PO (08:12)
[2020-06-20] MEDS: Losartan Potassium 25 MG Tablet PO (08:12)
[2020-06-20] MEDS: Montelukast 10 MG Tablet PO (08:13)
--- NOTE | 2020-06-20 11:44 | PHA.DC.MC ---
Pharmacy Service has performed discharge medication reconciliation and counseling for this patient. 1. CIPROFLOXACIN 500MG PO BID X 10 DAYS 2. DOCUSATE 100MG PO DAILY 3. NORCO 5/325MG PO 1T Q4H PRN PAIN The patient's discharge medication list was reviewed for discrepancies and discrepancies were resolved. Home Medications Aspirin [Adult Low Dose Aspirin EC] 81 mg PO DAILY 02/12/16 losartan 25 mg tablet 25 mg PO QDAY #30 tab 06/14/17 simvastatin 20 mg tablet 20 mg PO QHS #30 tab 06/14/17 fluticasone propionate 50 mcg/actuation nasal spray,suspension 1 spray INTRANASAL QDAY PRN 12/27/17 montelukast 10 mg tablet 10 mg PO DAILY tab 08/03/19 Ciprofloxacin [Cipro] 500 mg PO BID #20 tab 06/19/20 Docusate Sodium [Colace] 100 mg PO DAILY #20 cap 06/19/20 Hydrocodone Bitart/Apap 5-325 [[place] 5MG-325MG] 1 tab PO Q4H PRN PRN 7 Days #14 tab 06/19/20 The patient was counseled on the following discharge medications and changes in medications for homegoing were reviewed. The Reason for Use, instructions for use, and potential side effects were reviewed for all new medications. The patient's questions regarding all of their medications were answered. The patient was able to verbally demonstrate an understanding of their discharge medications. Patient counseled by pharmacy grad intern
== END 2020-06-20 13:22 | disposition home or self-care (01) ==
LOC: SDC 05:52 → AC 05:52 → MS3 12:20
PROVIDERS: Anesthesiology; PCP Family Medicine; Referring Provider Urology; Visit Provider Urology
PROC: 0VT04ZZ Resection of Prostate, Percutaneous Endoscopic Approach (ICD-10-PCS; CPT 55867; principal; 2020-06-19 07:10)
DX: C61 Malignant neoplasm of prostate (principal); N40.1 Benign prostatic hyperplasia with lower urinary tract symptoms; R35.0 Frequency of micturition; R35.1 Nocturia; R97.20 Elevated prostate specific antigen [PSA]; I25.10 Atherosclerotic heart disease of native coronary artery without angina pectoris; I08.0 Rheumatic disorders of both mitral and aortic valves; I45.2 Bifascicular block; I10 Essential (primary) hypertension; E78.00 Pure hypercholesterolemia, unspecified; R23.3 Spontaneous ecchymoses; Z79.82 Long term (current) use of aspirin; Z87.891 Personal history of nicotine dependence; Z20.822 Contact with and (suspected) exposure to COVID-19
CPT/HCPCS: 00865; 55866; 36415; 80048; 84132; 85027; 85610; 85730; 86850; 86900; 86901; 87426; 88304; 88309; 93005; 99251; C9803; J7120; A4216; G0463; J0744; J2405

== ENCOUNTER → 2020-11-15 10:25 | Outpatient (CLI) | payer MEDICARE, OTHER, SELFPAY ==
[2020-10-07 09:33] VITALS: BMI 25.6
[2020-11-15 11:59] LABS: PSA,Total- Diagnostic < 0.01 ng/mL (0.0-4.0)
== END ==
PROVIDERS: PCP Family Medicine; Referring Provider Urology; Visit Provider Urology
DX: C61 Malignant neoplasm of prostate (principal)
CPT/HCPCS: 36415; 84153

== ENCOUNTER → 2021-01-14 16:47 | Outpatient (CLI) | payer MEDICARE, OTHER, SELFPAY ==
[2020-10-07 09:33] VITALS: BMI 25.6
--- NOTE | 2021-01-14 16:49 | CT_ITS ---
STUDY: LOW DOSE CT LUNG CANCER SCREENING REASON FOR EXAM: Male, 65 years old. LUNG NODULE RADIATION DOSAGE (If Supplied By Facility): CTDIvol = ( 3.02 ) mGy, DLP = ( 115.13 ) mGycm TECHNIQUE: No contrast was administered. Low dose technique was utilized (average mAS-38 and kVp 120). 1.25 mm axial source images with a slice interval of 1.25-mm were reconstructed in lung windows. 2.5 mm axial source images with a slice interval of 2.5-mm were reconstructed in lung windows. 5.0 mm axial source images with a slice interval of 5.0-mm were reconstructed in soft tissue windows. Nodule measured using lung windows on PACS and/or independent workstation with automated measurement of minimum and maximum diameter. Nodule measurement reported as average diameter rounded to the nearest whole number. Growth is defined as an increase ins size of greater than 1.5 mm. COMPARISON: Comparison is made with prior study dated 01/15/2020. NODULES: Stable 5 mm nodule in the anterior aspect of the right middle lobe as seen on axial image #20. 2. Stable 3 mm nodule in the peripheral lateral aspect of the right middle lobe as seen on axial image #196. Emphysema: Emphysematous changes more prominent in the upper lobes. Endobronchial lesion: None Aorta: Atherosclerotic calcification. Coronary arteries: Coronary artery calcification. Mediastinal nodes: Small benign-appearing mediastinal lymph nodes. Other chest and abdominal findings: Moderate sized hiatal hernia. CT/Low Dose CT Lung Screening IMPRESSION: Lung-RADS category 2 - Continue annual screening with LDCT in 12 months. IMPORTANT NOTES FOR USE: ACR Lung-RADS Version 1.1 Assessment Categories Release Date: 2018 Category: Coded 0-4 bases on nodule(s) with highest degree of suspicion. Negative screen is defined as categories 1 and 2; a positive screen is defined as categories 3 and 4. Category 3 and 4A nodules that are unchanged on interval CT should be coded as category 2, and individuals returned to screening in 12 months. Category 4X: Category 3 or 4 nodules with additional imaging findings that increase the suspicion of lung cancer, such as spiculation, GGN that doubles in size in 1 year, enlarged lymph notes, etc. Category Modifiers: S (significant finding unrelated to lung cancer) Electronically Signed: Juan David Clark MD at 8:37 EDT , Service support ,
== END ==
PROVIDERS: PCP Family Medicine; Referring Provider Family Medicine; Visit Provider Family Medicine
DX: Z12.2 Encounter for screening for malignant neoplasm of respiratory organs (principal); R91.1 Solitary pulmonary nodule; Z87.891 Personal history of nicotine dependence
CPT/HCPCS: 71271

== ENCOUNTER → 2021-04-09 08:58 | Outpatient (CLI) | payer MEDICARE, OTHER, SELFPAY ==
[2021-04-09 11:06] LABS: AST(SGOT) 28 U/L (15-37); Alanine Aminotransfer ALT/SGPT 20 U/L (16-61); Albumin, Serum 3.4 g/dL (3.2-5.0); Alkaline Phosphatase 79 U/L (45-117); Bilirubin, Direct 0.24 mg/dL (0.00-0.30); Cholesterol 143 mg/dL (200); High Density Lipoprotein 54 mg/dL; Protein, Total 7.4 g/dL (6.4-8.2); Triglycerides 85 mg/dL; Very Low Density Lipoprotein 17 mg/dL (5-40)
== END ==
PROVIDERS: PCP Family Medicine; Referring Provider Physician Assistant Medical; Visit Provider Physician Assistant Medical
DX: E78.5 Hyperlipidemia, unspecified (principal); I25.10 Atherosclerotic heart disease of native coronary artery without angina pectoris; I10 Essential (primary) hypertension
CPT/HCPCS: 36415; 80061; 80076

== ENCOUNTER → 2021-05-01 08:36 | Outpatient (CLI) | payer MEDICARE, OTHER, SELFPAY ==
[2021-05-01 09:28] LABS: PSA,Total- Diagnostic < 0.01 ng/mL (0.0-4.0)
== END ==
PROVIDERS: PCP Family Medicine; Visit Provider Urology
DX: C61 Malignant neoplasm of prostate (principal)
CPT/HCPCS: 36415; 84153

== ENCOUNTER → 2021-05-12 09:25 | Outpatient (CLI) | payer MEDICARE, OTHER, SELFPAY ==
[2021-05-12 10:56] LABS: Vitamin D,25 Hydroxy 25.1 ng/mL
[2021-05-12 10:57] LABS: Anion Gap 6 (5-15); BUN 24 mg/dL (7-18); Calcium,Total 8.4 mg/dL (8.5-10.1); Chloride 110 mmol/L (98-107); Creatinine, Serum 0.96 mg/dL (0.70-1.30); EST Glomerular Filtration Rate 83 mL/min (>60); Est Glom Filt Rate - Afr Amer 101 mL/min (>60); Glucose 91 mg/dL (74-106); Potassium 3.8 mmol/L (3.5-5.1); Sodium Level 139 mmol/L (136-145); T4 Free Direct 1.01 ng/dL (0.76-1.46)
== END ==
PROVIDERS: PCP Family Medicine; Visit Provider Family Medicine
DX: I10 Essential (primary) hypertension (principal); E03.9 Hypothyroidism, unspecified; R53.83 Other fatigue
CPT/HCPCS: 36415; 80048; 82306; 84439; 84443

== ENCOUNTER 2021-09-12 10:03 | Outpatient (CLI) | payer MEDICARE, OTHER, SELFPAY ==
[2021-09-12 12:27] LABS: T4 Free Direct 1.02 ng/dL (0.76-1.46); Thyroid Stim Hormone (TSH) 4.95 uIU/mL (0.358-3.74)
== END 2021-09-12 23:59 | disposition home or self-care (01) ==
LOC: MFPLAB 10:07
PROVIDERS: PCP Family Medicine; Referring Provider Family Medicine; Visit Provider Family Medicine
DX: E03.9 Hypothyroidism, unspecified (principal)
CPT/HCPCS: 36415; 84439; 84443

== ENCOUNTER → 2021-10-13 | Outpatient (CLI) | payer MEDICARE, OTHER, SELFPAY | END | disposition home or self-care (01) | LOC: MFPLAB 15:16 | PROVIDERS: PCP Family Medicine; Visit Provider Family Medicine | DX: J40 Bronchitis, not specified as acute or chronic (principal); Z20.822 Contact with and (suspected) exposure to COVID-19 | CPT/HCPCS: 87635; U0003; U0005 ==

== ENCOUNTER → 2021-11-04 | Outpatient (CLI) | payer MEDICARE, OTHER, SELFPAY ==
[2021-11-04 10:28] LABS: PSA,Total- Diagnostic < 0.01 ng/mL (0.0-4.0)
== END | disposition home or self-care (01) ==
LOC: LAB 08:49
PROVIDERS: PCP Family Medicine; Referring Provider Urology; Visit Provider Urology
DX: C61 Malignant neoplasm of prostate (principal)
CPT/HCPCS: 36415; 84153

== ENCOUNTER → 2021-11-06 | Outpatient (CLI) | payer MEDICARE, OTHER, SELFPAY ==
[2021-11-06 13:13] LABS: AST(SGOT) 19 U/L (15-37); Alanine Aminotransfer ALT/SGPT 23 U/L (16-61); Albumin, Serum 3.4 g/dL (3.2-5.0); Alkaline Phosphatase 90 U/L (45-117); Bilirubin, Direct 0.17 mg/dL (0.00-0.30); Globulin 3.3 g/dL (2.2-4.2); Protein, Total 6.7 g/dL (6.4-8.2)
== END | disposition home or self-care (01) ==
LOC: MFPLAB 09:54
PROVIDERS: PCP Family Medicine; Referring Provider Family Medicine; Visit Provider Family Medicine
DX: E78.5 Hyperlipidemia, unspecified (principal)
CPT/HCPCS: 36415; 80076

== ENCOUNTER → 2022-01-15 | Outpatient (CLI) | payer MEDICARE, OTHER, SELFPAY ==
[2022-01-15 11:18] LABS: Hematocrit 45.9 % (40-54); Hemoglobin 15.4 g/dL (13.0-16.5); Mean Corp Hgb Conc 33.6 g/dL (32-36); Mean Corpuscular Hgb 31.5 pg (27.0-32.0); Mean Corpuscular Volume 93.9 fL (80-94); Mean Platelet Vol. 9.3 fl (6.2-12.0); Platelet Count 217 K/mm3 (150-450); Red Blood Count 4.89 M/mm3 (4.6-6.2); White Blood Count 5.6 K/mm3 (4.4-11.0)
[2022-01-15 11:59] LABS: AST(SGOT) 22 U/L (15-37); Alanine Aminotransfer ALT/SGPT 20 U/L (16-61); Albumin, Serum 3.7 g/dL (3.2-5.0); Alkaline Phosphatase 80 U/L (45-117); Bilirubin, Direct 0.17 mg/dL (0.00-0.30); Globulin 3.7 g/dL (2.2-4.2); Protein, Total 7.4 g/dL (6.4-8.2)
[2022-01-15 12:01] LABS: Anion Gap 5 (5-15); BUN 22 mg/dL (7-18); Calcium,Total 9.3 mg/dL (8.5-10.1); Chloride 108 mmol/L (98-107); Cholesterol 149 mg/dL (200); Creatinine, Serum 1.05 mg/dL (0.70-1.30); EST Glomerular Filtration Rate 75 mL/min (>60); Est Glom Filt Rate - Afr Amer 91 mL/min (>60); Glucose 100 mg/dL (74-106); High Density Lipoprotein 58 mg/dL; Magnesium 2.2 mg/dL (1.6-2.6); Potassium 3.9 mmol/L (3.5-5.1); Sodium Level 139 mmol/L (136-145); T4 Free Direct 1.41 ng/dL (0.76-1.46); Thyroid Stim Hormone (TSH) 1.72 uIU/mL (0.358-3.74); Triglycerides 56 mg/dL; Very Low Density Lipoprotein 11 mg/dL (5-40)
== END | disposition home or self-care (01) ==
PROVIDERS: PCP Family Medicine; Referring Provider Internal Medicine Cardiovascular Disease; Visit Provider Internal Medicine Cardiovascular Disease
DX: I48.91 Unspecified atrial fibrillation (principal); E03.9 Hypothyroidism, unspecified; I25.10 Atherosclerotic heart disease of native coronary artery without angina pectoris; E78.5 Hyperlipidemia, unspecified
CPT/HCPCS: 36415; 80048; 80061; 80076; 83735; 84439; 84443; 85027

== ENCOUNTER → 2022-01-23 | Outpatient (CLI) | payer MEDICARE, OTHER, SELFPAY ==
--- NOTE | 2022-01-23 08:46 | ECHOCS_ITS ---
Reason For Study: VALVE REPLACEMENT EVAL Procedure This was a 2D Doppler, Color Flow transthoracic echocardiogram. The study was technically difficult. Contrast injection was performed. Exam performed in department. Left Ventricle Normal LV size. Left ventricular systolic function is normal. The estimated ejection fraction is 65 %. Diastolic function is indeterminate. No regional wall motion abnormalities noted. Right Ventricle Normal RV size. Normal systolic function. Atria Normal left atrium. Normal right atrium. No doppler evidence for ASD. Mitral Valve The mitral valve is structurally normal. No prolapse or stenosis seen. There is mild mitral annular calcification. Mild (1+) mitral valve insufficiency. Tricuspid Valve Normal tricuspid valve. Mild (1+) tricuspid valve insufficiency. Right ventricular systolic pressure estimated to be 33 mmHg. Aortic Valve Stable appearing bioprosthetic aortic valve apparatus. Trivial transvalvular insufficiency of the aortic valve. Pulmonic Valve The pulmonic valve is not well visualized. Trivial pulmonic valve insufficiency. Great Vessels Normal sized aortic root. Pericardium/Pleural No pericardial effusion. Medication 22 gauge I.V. with prn adaptor inserted into right arm. Diluted definity 2ml given slow IV push to enhance endocardial definition. MMode/2D Measurements & Calculations LVIDd: 3.9 cm IVSd: 0.87 cm LVOT diam: 2.0 cm LVIDs: 1.9 cm LVPWd: 0.79 cm RVDd: 3.3 cm FS: 51.6 % LVOT area: 3.0 cm2 Ao root diam: 2.8 cm LAV(MOD-bp): 52.5 ml LVAd ap4: 31.7 cm2 LAV(MOD-bp) Indexed: 23.7 ml/m2 LVLd ap4: 8.2 cm LAV(MOD-sp2): 56.6 ml EDV(MOD-sp4): 99.6 ml LAV(MOD-sp4): 48.9 ml EDV(sp4-el): 103.9 ml LVAs ap4: 17.0 cm2 LVLs ap4: 7.1 cm ESV(MOD-sp4): 33.9 ml ESV(sp4-el): 34.6 ml EF(MOD-sp4): 66.0 % EF(sp4-el): 66.7 % SV(MOD-sp4): 65.8 ml SV(sp4-el): 69.3 ml LA A4 area: 17.7 cm2 LA dimension(2D): 4.0 cm RA A4 area: 21.2 cm2 Time Measurements MV dec time: 0.19 sec Doppler Measurements & Calculations MV E max leonel: 84.4 cm/sec Lat Peak E' Leonel: 5.2 cm/sec Med Peak E' Leonel: 5.3 cm/sec MV A max leonel: 84.9 cm/sec E/E' lat: 16.3 E/E' med: 16.0 MV E/A: 0.99 MV V2 max: 92.7 cm/sec MV dec slope: 440.8 cm/sec2 Ao V2 max: 206.8 cm/sec MV max P.4 mmHg Ao max P.2 mmHg MV V2 mean: 66.6 cm/sec Ao V2 mean: 139.8 cm/sec MV mean P.9 mmHg Ao mean P.9 mmHg MV V2 VTI: 32.5 cm Ao V2 VTI: 42.6 cm MVA(VTI): 2.2 cm2 TAINA(I,D): 1.7 cm2 TAINA(V,D): 1.4 cm2 LV V1 max: 94.2 cm/sec SV(LVOT): 71.7 ml PA V2 max: 101.1 cm/sec LV V1 max P.6 mmHg PA V2 mean: 73.2 cm/sec LV V1 mean P.9 mmHg LV V1 mean: 64.7 cm/sec LV V1 VTI: 23.7 cm TR max leonel: 274.9 cm/sec TR max P.2 mmHg ECHO/Echo Complete W/ Contrast Interpretation Summary Technically difficult study. Contrast injection was performed. Left ventricular systolic function is normal. The estimated ejection fraction is 65 %. There is mild mitral annular calcification. Mild (1+) mitral valve insufficiency. Mild (1+) tricuspid valve insufficiency. Trivial pulmonic valve insufficiency. Stable appearing bioprosthetic aortic valve apparatus. Trivial transvalvular insufficiency of the aortic valve. Right ventricular systolic pressure estimated to be 33 mmHg. Diastolic function is indeterminate. Ordering Physician: Db Pittman Referring Physician: Db Pittman Performed By: Diamond Arauz RCS
== END | disposition home or self-care (01) ==
LOC: CVS 08:45
PROVIDERS: PCP Family Medicine; Referring Provider Internal Medicine Cardiovascular Disease; Visit Provider Internal Medicine Cardiovascular Disease
DX: I25.10 Atherosclerotic heart disease of native coronary artery without angina pectoris (principal)
CPT/HCPCS: 93306; Q9957; A4216; C8929

== ENCOUNTER → 2022-03-31 | Outpatient (CLI) | payer MEDICARE, OTHER, SELFPAY ==
--- NOTE | 2022-03-31 | TISS_PTH ---
PATIENT: FENG PARK LOC: [facility] U#:[id number] AGE/SX: 66/M ROOM: RE03/31/[address]: Dr. Everett Antonio MD : 1955 BED: DIS: 03/31/2022 SPEC #: [id number] RECD: 03/31/22 17:24 STATUS: DULGAS INDRA #: [id number] WONG: 03/31/22 00:[address]: Everett Antonio DEPT: SURGICAL PATHOLOGY RECD BY: Norman Au Tissues: A - Skin of neck, NOS B - Skin of arm Procedures: Surgery Specimen Level IV HEADER OPERATION: Left neck shave, left arm shave PRE-OP DIAGNOSIS: ? BCC, ? SCC TISSUE SUBMITTED: A - Left neck shave, B ? Left arm shave MICROSCOPIC DIAGNOSIS A. Skin lesion of left neck, shave biopsy: Seborrheic keratosis with features of actinic keratosis. Solar elastosis. Mild chronic inflammation. B. Skin lesion of left arm, shave biopsy: Squamous cell carcinoma in situ. Solar elastosis. Hyperkeratosis. See comment. AM:britni 04/02/2022 COMMENT B. Clinical correlation is necessary. MICROSCOPIC DESCRIPTION Slides are reviewed. GROSS DESCRIPTION A - Received in fixative is one container labeled with the patient's name and designated left neck. The specimen consists of a discoid fragment of rivera shaved skin measuring 5 mm in diameter and 0.1 cm in thickness. The specimen is totally submitted in one cassette. B - Received in fixative is one container labeled with the patient's name and designated left arm. The specimen consists of a discoid fragment of rivera shaved skin measuring 0.6 mm in diameter and <0.1 cm in thickness. The specimen is totally submitted in one cassette. / AM:britni 04/01/2022 TC:0 [facility]: [id number] x2
== END | disposition home or self-care (01) ==
LOC: LABSPEC 15:23
PROVIDERS: PCP Family Medicine; Referring Provider Family Medicine; Visit Provider Family Medicine
DX: L82.1 Other seborrheic keratosis (principal); L57.8 Other skin changes due to chronic exposure to nonionizing radiation; D04.62 Carcinoma in situ of skin of left upper limb, including shoulder
CPT/HCPCS: 88305

== ENCOUNTER → 2022-04-06 | Outpatient (CLI) | payer MEDICARE, OTHER, SELFPAY ==
--- NOTE | 2022-04-06 07:00 | LES_PTH ---
PATIENT: FENG PARK LOC: [facility] U#:[id number] AGE/SX: 66/M ROOM: RE04/06/[address]: Dr. Everett Antonio MD : 1955 BED: DIS: 04/06/2022 SPEC #: [id number] RECD: 04/06/22 11:51 STATUS: DUGLAS INDRA #: [id number] WONG: 04/06/22 07:[address]: Everett Antonio DEPT: SURGICAL PATHOLOGY RECD BY: Pam Wynn Tissues: Skin of arm Procedures: Surgery Specimen Level IV HEADER OPERATION: Excision left arm PRE-OP DIAGNOSIS: SCC TISSUE SUBMITTED: Left arm MICROSCOPIC DIAGNOSIS Skin lesion of left arm, excisional biopsy: Squamous cell carcinoma in situ, completely excised. Solar elastosis. Ulceration consistent with previous biopsy. AM:britni 04/07/2022 COMMENT Reference is made to the patient's previous skin lesion of left arm, shave biopsy ([id number]) in which squamous cell carcinoma in situ was identified. MICROSCOPIC DESCRIPTION Slides are reviewed. GROSS DESCRIPTION Received in fixative is one container labeled with the patient's name and designated left arm. The specimen consists of an ellipse of light rivera skin measuring 1.2 x 0.6 x 0.4 cm. The specimen is inked, serially sectioned and totally submitted in one cassette. / AM:britni 04/06/2022 TC:0 [facility]: [id number]
== END | disposition home or self-care (01) ==
LOC: LABSPEC 12:01
PROVIDERS: PCP Family Medicine; Referring Provider Family Medicine; Visit Provider Family Medicine
DX: D04.62 Carcinoma in situ of skin of left upper limb, including shoulder (principal); L57.8 Other skin changes due to chronic exposure to nonionizing radiation
CPT/HCPCS: 88305

== ENCOUNTER → 2022-05-08 | Outpatient (CLI) | payer MEDICARE, OTHER, SELFPAY ==
[2022-05-08 11:40] LABS: PSA,Total- Diagnostic < 0.01 ng/mL (0.0-4.0)
== END | disposition home or self-care (01) ==
LOC: LAB 10:46
PROVIDERS: PCP Family Medicine; Visit Provider Urology
DX: C61 Malignant neoplasm of prostate (principal)
CPT/HCPCS: 36415; 84153

== ENCOUNTER → 2022-07-13 | Outpatient (CLI) | payer MEDICARE, OTHER, SELFPAY ==
--- NOTE | 2022-07-13 09:28 | RAD_ITS ---
EXAM: XR ABDOMEN, 2 VIEWS AND XR CHEST, 1 VIEW CLINICAL INDICATION: BLOATING TECHNIQUE: Frontal view of the chest, frontal view of the abdomen/pelvis and upright or decubitus view of the abdomen. This report was created using [employer] report generation technology. COMPARISON: None. FINDINGS: CHEST: LUNGS AND PLEURAL SPACES: Minimal linear atelectasis or scarring left lung base. No pneumothorax. No effusion. HEART: Normal. Normal heart size. MEDIASTINUM: No mediastinal or hilar mass. ABDOMEN: INTRAPERITONEAL SPACE: No free air. GASTROINTESTINAL TRACT: No evidence of bowel obstruction or significant ileus. ORGANS: Unremarkable as visualized. No organomegaly. No abnormal calcifications. TUBES, LINES AND DEVICES: None. BONES/JOINTS: Sternotomy wires are in place. SOFT TISSUES: No acute findings. OTHER FINDINGS: Mild elevation left hemidiaphragm. RAD/Acute Abdomen Inc Chest IMPRESSION: 1. Minor linear scarring or atelectasis left lung base. 2. No evidence of bowel obstruction or significant ileus. Electronically Signed: Nguyễn Holt MD at 12:58 EST ,
[2022-07-13 12:19] LABS: Erythrocyte Sedimentation Rate 4 mm/hr (0-20)
[2022-07-13 12:22] LABS: Absolute Lymphocyte Count 1.88 X10^3/uL (0.83-4.51); Absolute Neutrophil Count 3.5 X10^3/uL (2.0-7.7); Basophil# 0.04 X10^3/uL; Basophil% 0.7 % (0-1); Eosinophil# 0.08 X10^3/uL; Eosinophils% 1.3 % (0-5); Hematocrit 46.6 % (40-54); Hemoglobin 15.9 g/dL (13.0-16.5); Lymphocyte # 1.88 X10^3/ul (0.83-4.51); Lymphocyte % 31.5 % (19-41); Mean Corp Hgb Conc 34.1 g/dL (32-36); Mean Corpuscular Hgb 32.2 pg (27.0-32.0); Mean Corpuscular Volume 94.3 fL (80-94); Mean Platelet Vol. 9.2 fl (6.2-12.0); Monocyte# 0.45 X10^3/uL; Monocyte% 7.6 % (0-10); NRBC Flagged by Analyzer 0 % (0-5); Neutrophil # 3.48 X10^3/uL (2.7-7.7); Neutrophil % 58.4 % (47-70); Platelet Count 247 K/mm3 (150-450); RBC Distribution Width CV 13.3 % (11.6-14.6); RBC Distribution Width SD 46.2 fl (35.1-43.9); Red Blood Count 4.94 M/mm3 (4.6-6.2)
[2022-07-13 13:02] LABS: ALB/GLOB Ratio 0.9 RATIO (0.9-2.4); AST(SGOT) 24 U/L (15-37); Alanine Aminotransfer ALT/SGPT 21 U/L (16-61); Albumin, Serum 3.4 g/dL (3.2-5.0); Alkaline Phosphatase 91 U/L (45-117); Anion Gap 10 (5-15); BUN 26 mg/dL (7-18); BUN/Creat Ratio 24.8 RATIO (10-20); Calcium,Total 8.9 mg/dL (8.5-10.1); Chloride 107 mmol/L (98-107); Cholesterol 149 mg/dL (200); Creatinine, Serum 1.05 mg/dL (0.70-1.30); EST Glomerular Filtration Rate 75 mL/min (>60); Est Glom Filt Rate - Afr Amer 90 mL/min (>60); Globulin 3.9 g/dL (2.2-4.2); Glucose 90 mg/dL (74-106); High Density Lipoprotein 56 mg/dL; Potassium 4.3 mmol/L (3.5-5.1); Protein, Total 7.3 g/dL (6.4-8.2); Sodium Level 142 mmol/L (136-145); Thyroid Stim Hormone (TSH) 4.16 uIU/mL (0.358-3.74); Triglycerides 67 mg/dL; Very Low Density Lipoprotein 13 mg/dL (5-40)
[2022-07-14 14:10] LABS: Endomysial Antibody IgA Negative (Negative); Immunoglobulin A 196 mg/dL (61-437)
[2022-07-14 18:27] LABS: t-Transglutaminase IgA <2 U/mL (0-3)
== END | disposition home or self-care (01) ==
LOC: MTLAB 09:26
PROVIDERS: PCP Family Medicine; Visit Provider Family Medicine
DX: E78.5 Hyperlipidemia, unspecified (principal); R14.0 Abdominal distension (gaseous); R10.13 Epigastric pain; J30.9 Allergic rhinitis, unspecified
CPT/HCPCS: 36415; 74022; 80053; 80061; 82784; 83516; 84443; 85025; 85652; 86003; 86005; 86255; 86677

== ENCOUNTER → 2022-07-14 | Outpatient (CLI) | payer MEDICARE, OTHER, SELFPAY ==
[2022-07-19 15:38] LABS: H. PYLORI STOOL AG Negative (Negative); Pancreatic Elastase, Fecal 260 (>200)
== END | disposition home or self-care (01) ==
LOC: LABSPEC 11:21
PROVIDERS: PCP Family Medicine; Referring Provider Family Medicine; Visit Provider Family Medicine
DX: R14.0 Abdominal distension (gaseous) (principal); R10.13 Epigastric pain
CPT/HCPCS: 82653; 87338

== ENCOUNTER → 2022-08-26 | Outpatient (CLI) | payer MEDICARE, OTHER, SELFPAY ==
--- NOTE | 2022-08-26 08:02 | RAD_ITS ---
STUDY: X-RAY - ESOPHAGUS (BARIUM SWALLOW) WITH FLUOROSCOPY REASON FOR EXAM: Male, 67 years old. DYSPHAGIA TECHNIQUE: 18 view(s) of the esophagus were obtained following swallowing of barium. FLUOROSCOPY TIME (if supplied): (39 seconds) minutes/seconds. 23.55 mGy COMPARISON: None. FINDINGS: There is no demonstrated esophageal foreign body. There is no demonstrated stricture or mucosal abnormality. Moderate sized hiatal hernia with gastroesophageal reflux. The patient ingested a 12 mm tablet of barium without any difficulty. There is atherosclerotic calcification of the aortic arch with tortuosity of the descending aorta. Normal visualized pulmonary parenchyma. There are diffuse degenerative changes of the visualized thoracic spine. RAD/Esophagus Single Contrast IMPRESSION: Moderate-sized hiatal hernia with gastroesophageal reflux. Electronically Signed: Juan David Clark MD at 15:38 EDT ,
== END | disposition home or self-care (01) ==
LOC: RAD 07:58
PROVIDERS: PCP Family Medicine; Referring Provider Family Medicine; Visit Provider Family Medicine
DX: R10.13 Epigastric pain (principal)
CPT/HCPCS: 74220

== ENCOUNTER → 2022-09-21 | Outpatient (CLI) | payer MEDICARE, OTHER, SELFPAY ==
[2022-09-21 15:31] LABS: T4 Free Direct 1.44 ng/dL (0.76-1.46); Thyroid Stim Hormone (TSH) 0.98 uIU/mL (0.358-3.74)
== END | disposition home or self-care (01) ==
LOC: MFPLAB 12:18
PROVIDERS: PCP Family Medicine; Visit Provider Family Medicine
DX: E03.9 Hypothyroidism, unspecified (principal)
CPT/HCPCS: 36415; 84439; 84443

== ENCOUNTER → 2022-11-05 | Outpatient (CLI) | payer MEDICARE, OTHER, SELFPAY ==
[2022-11-05 10:54] LABS: PSA,Total- Diagnostic < 0.01 ng/mL (0.0-4.0)
== END | disposition home or self-care (01) ==
LOC: MFPLAB 09:25
PROVIDERS: PCP Family Medicine; Visit Provider Urology
DX: C61 Malignant neoplasm of prostate (principal)
CPT/HCPCS: 36415; 84153

== ENCOUNTER → 2023-03-26 | Outpatient (CLI) | payer MEDICARE, OTHER, SELFPAY ==
--- NOTE | 2023-03-26 07:37 | CT_ITS ---
STUDY: LOW DOSE CT LUNG CANCER SCREENING REASON FOR EXAM: Male, 67 years old. One and one half pack per day smoker x42 years. Quit x10 years RADIATION DOSAGE (If Supplied By Facility): CTDIvol = ( 3.02 ) mGy, DLP = ( 114.00 ) mGycm TECHNIQUE: No contrast was administered. Low dose technique was utilized (average mAS-38 and kVp 120). 1.25 mm axial source images with a slice interval of 1.25-mm were reconstructed in lung windows. 2.5 mm axial source images with a slice interval of 2.5-mm were reconstructed in lung windows. 5.0 mm axial source images with a slice interval of 5.0-mm were reconstructed in soft tissue windows. COMPARISON: 01/14/2021 FINDINGS: Lung windows show underlying emphysema with chronic interstitial changes in both lung uribe. No organized infiltrate, effusion, or suspicious noncalcified mass or nodule. There are scattered tiny calcified granulomata in both lung uribe. There is a stable 2 mm pleural-based nodule in the right middle lobe on axial image 143 unchanged from the previous study. There is also a stable 4 mm nodule in the right middle lobe on axial image 156 Limited soft tissue windows show normal-appearing thyroid. No suspicious adenopathy. There is been a remote CABG. Bony structures show degenerative change. Limited cuts of the upper abdomen show prominent retrocardiac hiatal hernia. CT/Low Dose CT Lung Screening IMPRESSION: Lung-RADS category 2 - Continue annual screening with LDCT in 12 months. IMPORTANT NOTES FOR USE: ACR Lung-RADS Version 1.1 Assessment Categories Release Date: 2018 Category: Coded 0-4 bases on nodule(s) with highest degree of suspicion. Negative screen is defined as categories 1 and 2; a positive screen is defined as categories 3 and 4. Category 3 and 4A nodules that are unchanged on interval CT should be coded as category 2, and individuals returned to screening in 12 months. Category 4X: Category 3 or 4 nodules with additional imaging findings that increase the suspicion of lung cancer, such as spiculation, GGN that doubles in size in 1 year, enlarged lymph notes, etc. Category Modifiers: S (significant finding unrelated to lung cancer) Electronically Signed: Michele Guzman MD at 9:26 EDT ,
== END | disposition home or self-care (01) ==
LOC: CT 07:37
PROVIDERS: PCP Family Medicine; Referring Provider Family Medicine; Visit Provider Family Medicine
DX: Z12.2 Encounter for screening for malignant neoplasm of respiratory organs (principal); F17.210 Nicotine dependence, cigarettes, uncomplicated
CPT/HCPCS: 71271

== ENCOUNTER → 2023-05-11 | Outpatient (CLI) | payer MEDICARE, OTHER, SELFPAY ==
[2023-05-11 15:24] LABS: PSA,Total- Diagnostic < 0.01 ng/mL (0.0-4.0)
== END | disposition home or self-care (01) ==
PROVIDERS: PCP Family Medicine; Referring Provider Urology; Visit Provider Urology
DX: C61 Malignant neoplasm of prostate (principal)
CPT/HCPCS: 36415; 84153

== ENCOUNTER → 2023-07-15 | Outpatient (CLI) | payer MEDICARE, OTHER, SELFPAY ==
[2023-07-15 12:51] LABS: Thyroid Stim Hormone (TSH) 3.34 uIU/mL (0.358-3.74)
== END | disposition home or self-care (01) ==
LOC: MFPLAB 09:55
PROVIDERS: PCP Family Medicine; Visit Provider Family Medicine
DX: E03.9 Hypothyroidism, unspecified (principal)
CPT/HCPCS: 36415; 84443

== ENCOUNTER 2024-01-25 08:40 | Day surgery (SDC) | payer MEDICARE, OTHER, SELFPAY ==
[2024-01-25] VITALS (9 sets, daily range): BP systolic 126–153; BP diastolic 77–89; PULSE 72–77; RESP 16; TEMP 36.8–37; O2SAT 95–98; BMI 25.2
[2024-01-25] MEDS: Lactated Ringers 1,000 ML 15 ML IV (09:05)
--- NOTE | 2024-01-25 09:05 | PCM.PRE.AN2 ---
ASA Classification* ASA Classification ASA Classification: 3 Assessment & Plan Anesthesia* Anesthesia Assessment Anesthesia Assessment: Discussed sedation and/or anesthesia options, risks, benefits, and alternatives with patient/parents/legal guardian/POA. Questions invited. The patient/parents/legal guardian/POA seems to understand and agrees to proceed with anesthesia plan. Reviewed the physical assessment, medical history, allergy history and patient home medications list prior to surgery/procedure/anesthetic and documented any changes. Performed airway and anesthesia risk assessments. Anesthesia Type Anesthesia Type: MAC History Source History Obtained from:: Patient and Chart Anesthesia Focused Assessment* Temperature: 98.6 F Pulse Rate: 75 Blood Pressure: 153/89 Respiratory Rate: 16 Pulse Ox: 97 Oxygen Delivery Method: Room Air Airway Assessment Mouth opens: >3 cm Mallampati Score: I Teeth Condition: Full (Full upper dentures are out.) and Partial (Lower partials.) Neck Range of motion (ROM): Limited ROM (Slight decrease in extension) Focused Labs Anesthesia Preop lab: CBC WBC 6.0 K/mm3 (4.4-11.0) 07/13/22 09:29 RBC 4.94 M/mm3 (4.6-6.2) 07/13/22 09:29 Hgb 15.9 g/dL (13.0-16.5) 07/13/22 09:29 Hct 46.6 % (40-54) 07/13/22 09:29 Plt Count 247 K/mm3 (150-450) 07/13/22 09:29 CHEMISTRY Potassium 4.3 mmol/L (3.5-5.1) 07/13/22 09:29 Sodium 142 mmol/L (136-145) 07/13/22 09:29 Magnesium 2.2 mg/dL (1.6-2.6) 01/15/22 10:23 BUN 26 mg/dL (7-18) H 07/13/22 09:29 Creatinine 1.05 mg/dL (0.70-1.30) 07/13/22 09:29 Glucose 90 mg/dL (74-106) 07/13/22 09:29 TSH 3.34 uIU/mL (0.358-3.74) 07/15/23 09:55 COAG PT 13.0 SECONDS (11.7-14.9) 06/14/20 08:11 Pre-Assessment Diagnosis/Proposed Procedure Planned Operative Procedure(s): egd Anesthesia History 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 When Was Last Pacemaker Check QUESTION #4 FULL TEXT: You/Your Family Experience fever (hyperthermia) with Anesthesia Last Oral Intake Last Oral intake: Last Oral Intake NPO since 07:00 01/25/24 09:02 Meds taken in AM with sips of Yes 01/25/24 09:02 water? 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 Female No 01/19/24 10:27 HX of Motion Sickness No 01/19/24 10:27 HX of N/V After Surgery No 01/19/24 10:27 Non-Smoker Yes 01/19/24 10:27 Duration of Surgery greater No 01/19/24 10:27 than 60 minutes Number of Risk Factors 1 01/19/24 10:27 PONV Score Low Risk 01/19/24 10:27 Height & Weight Height & Weight: Anesthesia: Height & Weight Height 6 ft 2 in 01/25/24 09:02 Weight: 89 kg 01/25/24 09:02 Body Mass Index (BMI) 25.2 01/25/24 09:02 Respiratory Assessment Respiratory Assessment - selenium plant operator: Respiratory Tract Infection Hx - selenium plant operator Hx Respiratory Tract Infection No 01/19/24 10:27 STOP Sleep Apnea STOP Sleep Apnea - selenium plant operator: STOP Sleep Apnea - selenium plant operator Hx Hypertension Yes: controlled with med 01/19/24 10:27 Hx Sleep Apnea No 01/19/24 10:27 CPAP BIPAP Do you snore loudly (louder No 01/19/24 10:27 than talking or can be heard Do you often feel tired/ No 01/19/24 10:27 fatigued/ sleepy during daytime? Has anyone observed you stop No 01/19/24 10:27 breathing during sleep? STOP Results Negative 01/19/24 10:27 QUESTION #5 FULL TEXT : Do you snore loudly (louder than talking or can be heard through closed doors)? 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 Specify any problems Hx of Preganancy in last 3 N/A 01/19/24 10:27 Months Nurse Filling Out Transfusion NBUCHER 01/19/24 10:27 & Questions: Date: 01/19/24 01/19/24 10:27 Time: 10:29 01/19/24 10:27 Patient unable to answer at this time (ie. confused, unrespo /Reproduction History /Reproductive History - selenium plant operator: /Reproductive Hx- selenium plant operator Hx Now No 01/19/24 10:27 Gestational Age (in weeks): EDC: Hx Hx Para Hx Section SAB No 01/19/24 10:27 Active Medications Active Medications: Current Medications Generic Name Dose Route Start Last Admin Trade Name Freq PRN Reason Stop Dose Admin Lactated Ringer's 1,000 mls @ 15 mls/hr 01/25/24 09:00 IV .Q48H SAMARIA PFSH Medical History Wears glasses Wears partial dentures Wears dentures Cancer Thyroid disease Arthritis Prostate disease High cholesterol Former smoker Leg cramps History of stress test History of echocardiogram Cardiology follow-up encounter Essential hypertension Hyperlipidemia Nonrheumatic aortic (valve) insufficiency Nonrheumatic mitral (valve) insufficiency History of bicuspid aortic valve Atherosclerotic heart disease of [place] coronary artery without angina pectoris Paroxysmal atrial fibrillation Home Medications ?Medication ?Instructions ?Recorded ?Last Taken ?Type aspirin 81 mg tablet,delayed 81 mg PO DAILY 02/12/16 01/22/24 History release losartan 25 mg tablet 25 mg PO QDAY #30 tabs 06/14/17 01/25/24 Rx simvastatin 20 mg tablet 20 mg PO QHS #30 tabs 06/14/17 01/24/24 Rx fluticasone propionate 50 1 spray intranasal QDAY PRN Nasal 12/27/17 01/24/24 History mcg/actuation nasal Congestion spray,suspension (Allergy Relief (fluticasone)) levothyroxine 50 mcg tablet 50 mcg PO DAILY 10/07/20 01/25/24 History pantoprazole 40 mg tablet,delayed 40 mg PO DAILY 01/25/24 01/24/24 History release Allergy/AdvReac Type Severity Reaction Status Date / Time Sulfa (Sulfonamide AdvReac Intermediate Rash Verified 01/25/24 09:01 Antibiotics) ciprofloxacin (From Cipro) AdvReac Itching Verified 01/25/24 09:01 Family History Father , age 57 CAD (coronary artery disease) Rheumatic heart disease Mother , age 78 Diabetes Congestive heart failure Sister , age 50, diabetes complications Diabetes Surgical History History of prostatectomy History of aortic valve replacement with bioprosthetic valve (~04/09/16) History of left heart catheterization (~12/20/09) History of right and left heart catheterization Social History Smoking Status: Former smoker Review of Systems (Anesthesia) ROS Narrative System reviewed and no additional complaints, except as documented.
--- NOTE | 2024-01-25 09:43 | HP.PCM_ITS ---
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: No Accompanied by: Is patient in pain?: No Allergies Sulfa (Sulfonamide Antibiotics) Adverse Reaction (Intermediate, Verified 01/06/24 13:21) Rashciprofloxacin (From Cipro) Adverse Reaction (Verified 01/06/24 13:21) Itching Medications ?Medication ?Instructions ?Recorded ?Confirmed ?Type aspirin 81 mg tablet,delayed 81 mg PO DAILY 02/12/16 01/06/24 History release losartan 25 mg tablet 25 mg PO QDAY #30 tabs 06/14/17 01/06/24 Rx simvastatin 20 mg tablet 20 mg PO QHS #30 tabs 06/14/17 01/06/24 Rx fluticasone propionate 50 1 spray intranasal QDAY PRN Nasal 12/27/17 01/06/24 History mcg/actuation nasal Congestion spray,suspension (Allergy Relief (fluticasone)) levothyroxine 50 mcg tablet 50 mcg PO DAILY 10/07/20 01/06/24 History Have you fallen in the past year?: No PFSH Medical History Atherosclerotic heart disease of [place] coronary artery without angina pectoris Essential hypertension History of bicuspid aortic valve Hyperlipidemia Nonrheumatic aortic (valve) insufficiency Nonrheumatic mitral (valve) insufficiency Paroxysmal atrial fibrillation Surgical History History of aortic valve replacement with bioprosthetic valve (~04/09/16) History of left heart catheterization (~12/20/09) History of prostatectomy History of right and left heart catheterization Family History Father , age 57 CAD (coronary artery disease) Rheumatic heart diseaseMother , age 78 Diabetes Congestive heart failureSister , age 50, diabetes complications Diabetes Social History Smoking Status: Former smoker HPI HPI HPI: Patient is a 68-year-old male here for severe reflux. He says has been getting worse over the past 6 months. He has vomiting when he bends over and he is complaining of severe epigastric discomfort. He reports bloating as well. He has a known hiatal hernia. ROS General General: No weight change, appetite, fatigue, colon cancer, breast cancer or weakness HEENT HEENT: No difficulty swallowing, eye injury, eye surgery, swollen glands or hoarseness Endo Endocrine: Yes thyroid disease; No diabetes mellitus, thyroid cancer, Hair loss, heat intolerance or cold intolerance Skin Skin: No rash or changing moles Breast Breast: No left breast lump, right breast lump, nipple discharge, breast pain, abnormal mammogram, abnormal US or breast enlargement Musc Musculoskeletal: Yes back problems and arthritis; No rheumatoid arthritis, gout or joint pain Cardio Cardiovascular: Yes heart disease and high blood pressure; No murmur, pacemaker, atrial fibrillation, heart attack, heart stent, palpitations, shortness of breat with exertion or chest pain Additional Details: Bicuspid valve replacement approximately six years ago Psych Psychiatric: No depression, anxiety or hearing voices Resp Respiratory: No shortness of breath, No sleep apnea, No cough, No COPD, Yes asthma, Yes emphysema and No wheezing Gastro Gastrointestinal: Yes abdominal pain, Yes nausea or vomiting, No diarrhea, No constipation, No blood in stool, Yes acid reflux, No hemorrhoids, No ulcers, No gallbladder problem and No black,tarry stools Agustín Hematologic: No blood thinners, No blood disorders, No bleeding, No anemia and No blood clots Additional Details: Baby aspirin daily Neuro Neurologic: No system reviewed and no additional complaints, except as documented, No as per HPI, No abnormal gait, No abnormal hearing, No abnormal movements, No abnormal speech, No behavioral changes, No burning sensations, No confusion, No convulsions, No disequilibrium, No dizziness, No localized weakness, No frequent falls, No headache(s), No lack of coordination, No loss of vision, No memory loss, Yes numbness, No other visual disturbances, No radicular pain, No restless legs, No sensory deficit, No syncope, Yes tingling, No tremor(s), No weakness and No other Exam Const General: cooperative Orientation: alert and oriented x3 HENMT Head: normal to inspection Neck Neck: normal visual inspection and full ROM Chest Chest palpation & inspection: normal inspection of the chest Resp Effort & Inspection: normal respiratory effort Auscultation: clear to auscultation bilaterally Cardio Rate: regular rate Rhythm: regular rhythm GI Inspection: non-distended Palpation: soft and nontender Skin General: no rashes or lesions noted Neuro General: patient alert and patient oriented x3 Extrem General: full ROM Psych Appearance: grossly normal Mental Status: mental status grossly normal Assessment and Plan Assessment and Plan (1) Hiatal hernia with GERD: Status: Acute Plan: The patient has a known hiatal hernia and he had an upper GI about a year ago which showed about a third of his stomach up in his chest. He has been having difficulty eating as well as with severe reflux especially when bending over. Patient has a large hiatal hernia and I will discuss possibly repairing it after EGD to evaluate his size. I explained endoscopy in detail to the patient. I explained the risks including but not limited to stroke or heart attack with anesthesia, perforation of the GI tract, bleeding, infection. I explained that any of these could necessitate further emergency surgery. The patient understands and all questions were answered sufficiently. The patient wishes to proceed with procedure. Sohail Malloy MD Pager: [facility] [address] [place] [address], [address] [place] [address] Office: I have examined the patient and the H&P has been reviewed. There are no clinical changes since date of exam.
--- NOTE | 2024-01-25 10:04 | PCM.POST.ANE ---
Anesthesia: Postop Eval I Current Vital Signs Temperature: 98.2 F Pulse Rate: 73 Blood Pressure: 139/83 Respiratory Rate: 16 Pulse Ox: 96 Oxygen Delivery Method: Room Air Assessment Airway patent: Yes Spontaneous unlabored respirations: Yes Mental status: Awake and Calm nausea: No Vomiting: No Anesthesia Complication: No Fluid Hydration Crystalloid volume administer (ml): 400 Total IV fluid infused: 400 Progress Note Anesthesia document: Postop Eval 1 completed: Yes
--- NOTE | 2024-01-25 10:05 | OP.EGD_ITS ---
Patient Name: Favian Huber Procedure Date: 01/25/2024 9:47 AM Date of : 1955 Age: 68 Procedure: Upper GI endoscopy Indications: Heartburn, Gastro-esophageal reflux disease Providers: Sohail Malloy MD Medicines: Propofol per Anesthesia Patient Profile: This is a 68 year old male. Refer to note in patient chart for documentation of history and physical. Complications: No immediate complications. Estimated blood loss: Minimal. Procedure: Pre-Anesthesia Assessment: - Prior to the procedure, a History and Physical was performed, and patient medications and allergies were reviewed. The patient's tolerance of previous anesthesia was also reviewed. The risks and benefits of the procedure and the sedation options and risks were discussed with the patient. All questions were answered, and informed consent was obtained. Prior Anticoagulants: The patient has taken no anticoagulant or antiplatelet agents. After reviewing the risks and benefits, the patient was deemed in satisfactory condition to undergo the procedure. After obtaining informed consent, the endoscope was passed under direct vision. Throughout the procedure, the patient's blood pressure, pulse, and oxygen saturations were monitored continuously. The Endoscope was introduced through the mouth, and advanced to the second part of duodenum. The upper GI endoscopy was accomplished without difficulty. The patient tolerated the procedure well. Scope In: 9:59:16 AM Scope Out: 10:01:26 AM Total Procedure Duration Time 0 hours 2 minutes 10 seconds Findings: A medium-sized hiatal hernia was present. 5 cm in length from GE junction to diaphragm. Tourtuous esophagus The stomach was normal. The examined duodenum was normal. Impression: - Medium-sized hiatal hernia. - Normal stomach. - Normal examined duodenum. - No specimens collected. Recommendation: - Discharge patient to home. - Resume previous diet. - Continue present medications. - Return to my office at appointment to be scheduled. Procedure Code(s): --- Professional --- 25588, Esophagogastroduodenoscopy, flexible, transoral; diagnostic, including collection of specimen(s) by brushing or washing, when performed (separate procedure) Diagnosis Code(s): --- Professional --- K44.9, Diaphragmatic hernia without obstruction or gangrene R12, Heartburn K21.9, Gastro-esophageal reflux disease without esophagitis CPT copyright 2022 [employer]. All rights reserved. The codes documented in this report are preliminary and upon hcc coders review may be revised to meet current compliance requirements. Sohail Malloy MD 01/25/2024 10:05:04 AM This report has been signed electronically. Number of Addenda: 0 Note Initiated On: 01/25/2024 9:47 AM
--- NOTE | 2024-01-25 10:05 | OP.CCLET_ITS ---
01/25/2024 Edgar Antonio [address] [place] [address] Re : Upper GI endoscopy procedure for Favian Huber Dear Dr. Antonio This procedure was performed on Thursday, January 25, 2024. My impressions and recommendations are as follows: Impressions : - Medium-sized hiatal hernia. - Normal stomach. - Normal examined duodenum. - No specimens collected. Recommendations : - Discharge patient to home. - Resume previous diet. - Continue present medications. - Return to my office at appointment to be scheduled. My findings are described in the full procedure note, which is enclosed. If I can be of further assistance, please feel free to contact me at Doctor phone number(s): , Work: . Sincerely, Sohail Malloy MD 01/25/2024 10:05:04 AM This report has been signed electronically.
--- NOTE | 2024-01-25 10:21 | POSTOPAN2_ITS ---
Anesthesia Postop Eval I Sum Postop Eval Completion status Anesthesia document: Postop Eval 1 completed: Yes Anesthesia Postop Eval I Summary Anesthesia Postop Eval I Summary: Anesthesia Postop Eval I: Assessment Summary Airway patent Yes 01/25/24 10:05 [email or web address] [email or web address] Spontaneous unlabored Yes 01/25/24 10:05 TILE BURNER.[email or web address] respirations Mental status Awake,Calm 01/25/24 10:05 TILE BURNER.GDOTT nausea No 01/25/24 10:05 TILE BURNER.GDOTT Vomiting No 01/25/24 10:05 TILE BURNER.GDOTT Anesthesia Postop Eval I: Fluid Summary Crystalloid volume administer 400 01/25/24 10:05 TILE BURNER.GDOTT (ml) Colloids volume administered ( ml) Blood Product volume administered (ml) Total IV fluid infused 400 01/25/24 10:05 TILE BURNER.GDOTT Anesthesia Postop Eval I: Summary Notes Anesthesia Complication No 01/25/24 10:05 TILE BURNER.GDOTT Anesthesia Complication Comment: Post-operative progress note Anesthesia: Postop Eval II Evaluation Mental status: Awake Pain Level: 0 nausea: No Vomiting: No
--- NOTE | 2024-01-25 10:21 | PCM.POSTANE2 ---
Anesthesia Postop Eval I Sum Postop Eval Completion status Anesthesia document: Postop Eval 1 completed: Yes Anesthesia Postop Eval I Summary Anesthesia Postop Eval I Summary: Anesthesia Postop Eval I: Assessment Summary Airway patent Yes 01/25/24 10:05 FURNITURE [email or web address] Spontaneous unlabored Yes 01/25/24 10:05 FURNITURE REPAIRER.GDOTT respirations Mental status Awake,Calm 01/25/24 10:05 FURNITURE REPAIRER.GDOTT nausea No 01/25/24 10:05 FURNITURE REPAIRER.GDOTT Vomiting No 01/25/24 10:05 FURNITURE REPAIRER.GDOTT Anesthesia Postop Eval I: Fluid Summary Crystalloid volume administer 400 01/25/24 10:05 FURNITURE REPAIRER.GDOTT (ml) Colloids volume administered ( ml) Blood Product volume administered (ml) Total IV fluid infused 400 01/25/24 10:05 FURNITURE REPAIRER.GDOTT Anesthesia Postop Eval I: Summary Notes Anesthesia Complication No 01/25/24 10:05 FURNITURE REPAIRER.GDOTT Anesthesia Complication Comment: Post-operative progress note Anesthesia: Postop Eval II Evaluation Mental status: Awake Pain Level: 0 nausea: No Vomiting: No
== END 2024-01-25 10:53 | disposition home or self-care (01) ==
LOC: EN 08:42 → AC 08:43
PROVIDERS: PCP Family Medicine; Referring Provider Family Medicine; Visit Provider Surgery
PROC: 0DJ08ZZ Inspection of Upper Intestinal Tract, Via Natural or Artificial Opening Endoscopic (ICD-10-PCS; CPT 43235; principal; 2024-01-25 09:55)
DX: K21.9 Gastro-esophageal reflux disease without esophagitis (principal); I48.0 Paroxysmal atrial fibrillation; K44.9 Diaphragmatic hernia without obstruction or gangrene; I25.10 Atherosclerotic heart disease of native coronary artery without angina pectoris; I10 Essential (primary) hypertension; E78.5 Hyperlipidemia, unspecified; E03.9 Hypothyroidism, unspecified; Z95.3 Presence of xenogenic heart valve; Z79.82 Long term (current) use of aspirin; Z79.890 Hormone replacement therapy; Z79.899 Other long term (current) drug therapy; Z87.891 Personal history of nicotine dependence
CPT/HCPCS: 43235; J7120

== ENCOUNTER 2024-02-23 10:40 | Observation (INO) | payer MEDICARE, OTHER, SELFPAY ==
--- NOTE | 2024-02-22 08:53 | EKG12_ITS ---
Test Reason : PRE OP Blood Pressure : / mmHG Vent. Rate : 097 BPM Atrial Rate : 097 BPM P-R Int : 172 ms QRS Dur : 126 ms QT Int : 396 ms P-R-T Axes : 070 133 035 degrees QTc Int : 502 ms Normal sinus rhythm Right bundle branch block Left posterior fascicular block Bifascicular block Abnormal ECG Confirmed by Blane Matthew ([id number]), newspaper or periodical editor BRENT BAUGH ([id number]) on 02/23/2024 5:24:48 AM Referred By: Sohail Malloy Confirmed By:Blane Matthew
[2024-02-22 09:30] LABS: Hematocrit 47.5 % (40-54); Hemoglobin 15.5 g/dL (13.0-16.5); Mean Corp Hgb Conc 32.6 g/dL (32-36); Mean Corpuscular Hgb 30.4 pg (27.0-32.0); Mean Corpuscular Volume 93.1 fL (80-94); Mean Platelet Vol. 8.9 fl (6.2-12.0); Platelet Count 226 K/mm3 (150-450); RBC Distribution Width CV 13.9 % (11.6-14.6); RBC Distribution Width SD 47.6 fl (35.1-43.9); White Blood Count 5.8 K/mm3 (4.4-11.0)
[2024-02-23] VITALS (21 sets, daily range): BP systolic 116–144; BP diastolic 53–99; PULSE 78–96; RESP 16–20; TEMP 35.7–36.6; O2SAT 94–100; BMI 24.5
--- NOTE | 2024-02-23 07:25 | PRE.ANES_ITS ---
ASA Classification* ASA Classification ASA Classification: 3 Assessment & Plan Anesthesia* Anesthesia Assessment Anesthesia Assessment: Discussed sedation and/or anesthesia options, risks, benefits, and alternatives with patient/parents/legal guardian/POA. Questions invited. The patient/parents/legal guardian/POA seems to understand and agrees to proceed with anesthesia plan. Reviewed the physical assessment, medical history, allergy history and patient home medications list prior to surgery/procedure/anesthetic and documented any changes. Performed airway and anesthesia risk assessments. Anesthesia Type Anesthesia Type: General Anesthesia Focused Assessment* Airway Assessment Mouth opens: >3 cm Mallampati Score: II Focused Labs Anesthesia Preop lab: CBC WBC 5.8 K/mm3 (4.4-11.0) 02/22/24 09:04 RBC 5.10 M/mm3 (4.6-6.2) 02/22/24 09:04 Hgb 15.5 g/dL (13.0-16.5) 02/22/24 09:04 Hct 47.5 % (40-54) 02/22/24 09:04 Plt Count 226 K/mm3 (150-450) 02/22/24 09:04 CHEMISTRY Potassium 4.3 mmol/L (3.5-5.1) 07/13/22 09:29 Sodium 142 mmol/L (136-145) 07/13/22 09:29 Magnesium 2.2 mg/dL (1.6-2.6) 01/15/22 10:23 BUN 26 mg/dL (7-18) H 07/13/22 09:29 Creatinine 1.05 mg/dL (0.70-1.30) 07/13/22 09:29 Glucose 90 mg/dL (74-106) 07/13/22 09:29 TSH 3.220 uIU/mL (0.358-3.740) 02/22/24 09:04 COAG PT 13.0 SECONDS (11.7-14.9) 06/14/20 08:11 Pre-Assessment Diagnosis/Proposed Procedure Planned Operative Procedure(s): LAPROSCOPIC HIATAL HERNIA WITH LAPROSCOPIC TOUPET FUNDOPLICATION AND EGD Anesthesia History 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 When Was Last Pacemaker Check QUESTION #4 FULL TEXT: You/Your Family Experience fever (hyperthermia) with Anesthesia Last Oral Intake Last Oral intake: Last Oral Intake NPO since Meds taken in AM with sips of water? Meds patient instructed to take am of surgery PONV PONV - mincing machine operator: PONV - mincing machine operator Female No 02/21/24 13:53 HX of Motion Sickness No 02/21/24 13:53 HX of N/V After Surgery No 02/21/24 13:53 Non-Smoker Yes 02/21/24 13:53 Duration of Surgery greater Yes 02/21/24 13:53 than 60 minutes Number of Risk Factors 2 02/21/24 13:53 PONV Score Moderate Risk 02/21/24 13:53 Height & Weight Height & Weight: Anesthesia: Height & Weight Height 6 ft 3 in 02/22/24 07:47 Weight: 88.451 kg 02/22/24 07:47 Respiratory Assessment Respiratory Assessment - mincing machine operator: Respiratory Tract Infection Hx - mincing machine operator Hx Respiratory Tract Infection No 02/21/24 13:53 STOP Sleep Apnea STOP Sleep Apnea - mincing machine operator: STOP Sleep Apnea - mincing machine operator Hx Hypertension Yes: controlled with med 02/21/24 13:53 Hx Sleep Apnea No 02/21/24 13:53 CPAP BIPAP Do you snore loudly (louder No 02/21/24 13:53 than talking or can be heard Do you often feel tired/ No 02/21/24 13:53 fatigued/ sleepy during daytime? Has anyone observed you stop No 02/21/24 13:53 breathing during sleep? STOP Results Negative 02/21/24 13:53 QUESTION #5 FULL TEXT : Do you snore loudly (louder than talking or can be heard through closed doors)? Tobacco Use History Tobacco Use History - mincing machine operator: Tobacco Use History - mincing machine operator Tobacco Use Smoking Status Former smoker 02/21/24 13:53 Hx Tobacco Use No 02/21/24 13:53 Years Smoking Packs Smoked per Day Smoking Cessation Date was Yes - quit smoking within 15 02/21/24 13:53 within the last 15 years years Hx Smoking Cessation Date 05/31/18 02/21/24 13:53 Hx Smoking Cessation Counseling Hematologic Medial History Hematologic Hx - mincing machine operator: Hematologic Medical Hx - processing engineer Hx of Blood Transfusion No 02/21/24 13:53 Hx of Transfusion in last 3 No 02/21/24 13:53 Months Date of Last Transfusion (if within last 3 months) Ever experience any problems No 02/21/24 13:53 with transfusion(s)? Specify any problems Hx of Preganancy in last 3 N/A 02/21/24 13:53 Months Nurse Filling Out Transfusion VLEHMAN 02/21/24 13:53 & Questions: Date: 02/21/24 02/21/24 13:53 Time: 13:57 02/21/24 13:53 Patient unable to answer at this time (ie. confused, unrespo /Reproduction History /Reproductive History - mincing machine operator: /Reproductive Hx- mincing machine operator Hx Now Gestational Age (in weeks): EDC: Hx Hx Para Hx Section SAB No 01/19/24 10:27 Active Medications Active Medications: Current Medications Generic Name Dose Route Start Last Admin Trade Name Freq PRN Reason Stop Dose Admin Cefazolin Sodium 2 gm/ Sodium 110 mls @ 150 mls/hr 02/23/24 10:05 Chloride IV 02/23/24 10:48 PREOP ONE Lactated Ringer's 1,000 mls @ 15 mls/hr 02/23/24 07:15 IV .Q48H SAMARIA PFSH Medical History Wears glasses Wears partial dentures Wears dentures Cancer Thyroid disease Arthritis Prostate disease High cholesterol Former smoker Leg cramps History of stress test History of echocardiogram Cardiology follow-up encounter Hiatal hernia with GERD GERD (gastroesophageal reflux disease) Essential hypertension Hyperlipidemia Nonrheumatic aortic (valve) insufficiency Nonrheumatic mitral (valve) insufficiency History of bicuspid aortic valve Atherosclerotic heart disease of [place] coronary artery without angina pectoris Paroxysmal atrial fibrillation Home Medications ?Medication ?Instructions ?Recorded ?Last Taken ?Type aspirin 81 mg tablet,delayed 81 mg PO DAILY 02/12/16 02/18/24 History release losartan 25 mg tablet 25 mg PO QDAY #30 tabs 06/14/17 01/25/24 Rx simvastatin 20 mg tablet 20 mg PO QHS #30 tabs 06/14/17 01/24/24 Rx fluticasone propionate 50 1 spray intranasal QDAY PRN Nasal 12/27/17 01/24/24 History mcg/actuation nasal Congestion spray,suspension (Allergy Relief (fluticasone)) levothyroxine 50 mcg tablet 50 mcg PO DAILY 10/07/20 01/25/24 History pantoprazole 40 mg tablet,delayed 40 mg PO QHS 01/25/24 01/24/24 History release Allergy/AdvReac Type Severity Reaction Status Date / Time Sulfa (Sulfonamide AdvReac Intermediate Rash Verified 02/21/24 13:50 Antibiotics) ciprofloxacin (From Cipro) AdvReac Itching Verified 02/21/24 13:50 Family History Father , age 57 CAD (coronary artery disease) Rheumatic heart disease Mother , age 78 Diabetes Congestive heart failure Sister , age 50, diabetes complications Diabetes Surgical History History of esophagogastroduodenoscopy (EGD) History of prostatectomy History of aortic valve replacement with bioprosthetic valve (~04/09/16) History of left heart catheterization (~12/20/09) History of right and left heart catheterization Social History Smoking Status: Former smoker Review of Systems (Anesthesia) ROS Narrative System reviewed and no additional complaints, except as documented.
[2024-02-23] MEDS: Lactated Ringers 1,000 ML 15 ML IV (07:46)
--- NOTE | 2024-02-23 08:09 | PCM.HP.BLA ---
History and Physical Date of Admission: 02/23/24 Intake Vital Signs 01/24/2409:02 02/02/2414:00 Height 6 ft 2 in 6 ft 3 in Weight: 195 lb BMI 24.3 BP 117/78 Blood Pressure Location Rt brachial Position Sitting Respiration 18 Pulse 100 Pulse Source Monitor Temp 97.6 F L Temp Source Temporal Pulse Oximetry (%) 95 Oxygen Delivery Method room air Intake Visit Reasons: DISCUSS HIATAL HERNIA SURGERY Chief Complaint: Discuss Hiatal Hernia Surgery Rug Cleaner Hand Required: No Accompanied by: Is patient in pain?: No Allergies Sulfa (Sulfonamide Antibiotics) Adverse Reaction (Intermediate, Verified 02/03/24 14:01) Rashciprofloxacin (From Cipro) Adverse Reaction (Verified 02/03/24 14:01) Itching Medications ?Medication ?Instructions ?Recorded ?Confirmed ?Type aspirin 81 mg tablet,delayed 81 mg PO DAILY 02/12/16 02/03/24 History release losartan 25 mg tablet 25 mg PO QDAY #30 tabs 06/14/17 02/03/24 Rx simvastatin 20 mg tablet 20 mg PO QHS #30 tabs 06/14/17 02/03/24 Rx fluticasone propionate 50 1 spray intranasal QDAY PRN Nasal 12/27/17 02/03/24 History mcg/actuation nasal Congestion spray,suspension (Allergy Relief (fluticasone)) levothyroxine 50 mcg tablet 50 mcg PO DAILY 10/07/20 02/03/24 History pantoprazole 40 mg tablet,delayed 40 mg PO DAILY 01/25/24 02/03/24 History release Have you fallen in the past year?: No PFSH Medical History (Updated 02/03/24 @ 13:59 by Cata Mcallister) GERD (gastroesophageal reflux disease) Hiatal hernia with GERD Wears glasses Wears partial dentures Wears dentures Cancer Thyroid disease Arthritis Prostate disease High cholesterol Former smoker Leg cramps History of stress test History of echocardiogram Cardiology follow-up encounter Essential hypertension Hyperlipidemia Nonrheumatic aortic (valve) insufficiency Nonrheumatic mitral (valve) insufficiency History of bicuspid aortic valve Atherosclerotic heart disease of [place] coronary artery without angina pectoris Paroxysmal atrial fibrillation Surgical History (Updated 02/03/24 @ 13:59 by Cata Mcallister) History of esophagogastroduodenoscopy (EGD) History of prostatectomy History of aortic valve replacement with bioprosthetic valve (~04/09/16) History of left heart catheterization (~12/20/09) History of right and left heart catheterization Family History Father , age 57 CAD (coronary artery disease) Rheumatic heart diseaseMother , age 78 Diabetes Congestive heart failureSister , age 50, diabetes complications Diabetes Social History Smoking Status: Former smoker HPI HPI HPI: Patient is a 68-year-old male here to discuss hiatal hernia repair. He recently had EGD with evaluation. ROS General General: No weight change, appetite, fatigue, colon cancer, breast cancer or weakness HEENT HEENT: No difficulty swallowing, eye injury, eye surgery, swollen glands or hoarseness Endo Endocrine: Yes thyroid disease; No diabetes mellitus, thyroid cancer, Hair loss, heat intolerance or cold intolerance Skin Skin: No rash or changing moles Breast Breast: No left breast lump, right breast lump, nipple discharge, breast pain, abnormal mammogram, abnormal US or breast enlargement Musc Musculoskeletal: Yes back problems and arthritis; No rheumatoid arthritis, gout or joint pain Cardio Cardiovascular: Yes heart disease and high blood pressure; No murmur, pacemaker, atrial fibrillation, heart attack, heart stent, palpitations, shortness of breat with exertion or chest pain Additional Details: Bicuspid valve replacement approximately six years ago Psych Psychiatric: No depression, anxiety or hearing voices Resp Respiratory: No shortness of breath, No sleep apnea, No cough, No COPD, Yes asthma, Yes emphysema and No wheezing Gastro Gastrointestinal: Yes abdominal pain, Yes nausea or vomiting, No diarrhea, No constipation, No blood in stool, Yes acid reflux, No hemorrhoids, No ulcers, No gallbladder problem and No black,tarry stools Agustín Hematologic: No blood thinners, No blood disorders, No bleeding, No anemia and No blood clots Additional Details: Baby aspirin daily Neuro Neurologic: No system reviewed and no additional complaints, except as documented, No as per HPI, No abnormal gait, No abnormal hearing, No abnormal movements, No abnormal speech, No behavioral changes, No burning sensations, No confusion, No convulsions, No disequilibrium, No dizziness, No localized weakness, No frequent falls, No headache(s), No lack of coordination, No loss of vision, No memory loss, Yes numbness, No other visual disturbances, No radicular pain, No restless legs, No sensory deficit, No syncope, Yes tingling, No tremor(s), No weakness and No other Exam Const General: cooperative Orientation: alert and oriented x3 HENMT Head: normal to inspection Neck Neck: normal visual inspection and full ROM Chest Chest palpation & inspection: normal inspection of the chest Resp Effort & Inspection: normal respiratory effort Auscultation: clear to auscultation bilaterally Cardio Rate: regular rate Rhythm: regular rhythm GI Inspection: non-distended Palpation: soft and nontender Skin General: no rashes or lesions noted Neuro General: patient alert and patient oriented x3 Extrem General: full ROM Psych Appearance: grossly normal Mental Status: mental status grossly normal Assessment and Plan Assessment and Plan (1) Hiatal hernia with GERD: Status: Acute Plan: Patient has a hiatal hernia with GERD and dysphagia. I discussed hiatal hernia repair with toupee fundoplication. Patient understood the explanation and asked questions. All questions were answered. I discussed the risks including but not limited to bleeding, infection, injury other organs such as the bowel, blood vessels or esophagus itself. Patient understands all the risks and is willing to proceed. Patient was given postoperative diet instructions. Sohail Malloy MD Pager: [facility] [address] [place] [address], [address] [place] [address] Office: I have examined the patient and the H&P has been reviewed. There are no clinical changes since date of exam.
[2024-02-23] MEDS: Cefazolin 2 GM in 0.9% Normal Saline (100mL Bag) 100 ML IV (08:40)
[2024-02-23] MEDS: Bupivacaine Mpf 0.5% 30 ML VIAL (09:05)
--- NOTE | 2024-02-23 10:41 | PCM.OPRPT ---
Report of Operation Date of Procedure: 02/23/24 Pre-Operative Diagnosis: Hiatal hernia and uncontrollable GERD Post-Operative Diagnosis: Same Surgery/Procedure Performed:: 1. Hiatal hernia repair with Toupet fundoplication 2. EGD Type of Anesthesia: General/Regional Specimen's removed: None Estimated Blood Loss (mL): 10 Description of Procedure: Patient was brought back to the operating room and general anesthesia was induced. The abdomen was prepped and draped in usual sterile fashion. A midline incision was made superior to the umbilicus and deepened to the fascia. The fascia was elevated and incised. Port was placed into the abdomen and it was insufflated to 15 mmHg. Patient was placed in steep reverse Trendelenburg position. Under direct visualization a 5 mm port was placed in the subxiphoid space and then the Ryan liver retractor was placed into the abdomen and elevated the left lobe of the liver. Next under direct visualization a 5 mm port was placed in the right lateral abdomen as well as 2 5-mm ports in the left lateral abdomen. The stomach was retracted out of the hiatal hernia but was very stuck due to the hernia sac. Using harmonic the right crura was dissected and then the hernia sac was entered. The hernia sac was dissected free circumferentially anteriorly this allowed for reduction of the stomach. Next the small gastrics were taken down with harmonic scalpel. After the greater curvature the stomach was released the stomach was fully delivered into the abdomen and the esophagus was identified. Both vagus nerves were identified and spared. Dissection was carried out in the mediastinum to allow for 5 cm of esophagus intra-abdominally. Next the crura was reapproximated to each other using 0 Surgidac sutures. Next the OG was removed and a 54 [place] bougie was placed. It was placed without difficulty. Next the stomach was sutured to the esophagus on both of his lateral sides using 0 Surgidac as well as a suture from the stomach to the crura posteriorly to keep it in place and from twisting. Next the patient was flattened and the abdomen was irrigated. An EGD was then performed and a well-lubricated scope was placed through the mouth and into the esophagus and into the stomach. There was mild amount of blood in the stomach but the wrap appeared in good position. There was easy entry into the stomach through the GE junction. There was no blood in the esophagus. Next the abdomen was aspirated there was no leaking during the EGD. Next the liver retractor was removed as well as all the ports. The midline incision was closed with 0 Vicryl suture. All of the other incisions were injected with local anesthetic and closed with interrupted 4-0 Monocryl sutures and Steri-Strips and bandages. Patient was awoken and taken to PACU in stable condition and will be admitted for observation. Admit VTE Documentation VTE Mechan Device Prophylaxis: SCD's
--- NOTE | 2024-02-23 10:43 | PCM.POST.ANE ---
Anesthesia: Postop Eval I Current Vital Signs Temperature: 97.1 F Pulse Rate: 96 Blood Pressure: 136/76 Respiratory Rate: 18 Pulse Ox: 95 Oxygen Delivery Method: Room Air Assessment Airway patent: Yes Spontaneous unlabored respirations: Yes Mental status: Asleep nausea: No Vomiting: No Anesthesia Complication: No Fluid Hydration Crystalloid volume administer (ml): 1,000 Total IV fluid infused: 1,000 Progress Note Anesthesia document: Postop Eval 1 completed: Yes
[2024-02-23] MEDS: Morphine 2 MG/ML Syringe IV (15:53)
--- NOTE | 2024-02-23 16:23 | POSTOPAN2_ITS ---
Anesthesia Postop Eval I Sum Postop Eval Completion status Anesthesia document: Postop Eval 1 completed: Yes Anesthesia Postop Eval I Summary Anesthesia Postop Eval I Summary: Anesthesia Postop Eval I: Assessment Summary Airway patent Yes 02/23/24 10:44 ENROLLMENT COORDINATOR.[email or web address] Spontaneous unlabored Yes 02/23/24 10:44 ENROLLMENT COORDINATOR.MACIEL respirations Mental status Asleep 02/23/24 10:44 ENROLLMENT COORDINATOR.ZOEOBDanny nausea No 02/23/24 10:44 ENROLLMENT COORDINATOR.MACIEL Vomiting No 02/23/24 10:44 ENROLLMENT COORDINATOR.MACIEL Anesthesia Postop Eval I: Fluid Summary Crystalloid volume administer 1,000 02/23/24 10:44 ENROLLMENT COORDINATOR.ZOEOBY (ml) Colloids volume administered ( ml) Blood Product volume administered (ml) Total IV fluid infused 1,000 02/23/24 10:44 ENROLLMENT COORDINATOR.MACIEL Anesthesia Postop Eval I: Summary Notes Anesthesia Complication No 02/23/24 10:44 ENROLLMENT COORDINATOR.MACIEL Anesthesia Complication Comment: Post-operative progress note Anesthesia: Postop Eval II Evaluation Mental status: Awake and Calm Pain Level: 2 nausea: No Vomiting: No Progress Note Post-operative progress note: Ativan helped with anxiety. Complications Anesthesia Complication: No
--- NOTE | 2024-02-23 16:23 | PCM.POSTANE2 ---
Anesthesia Postop Eval I Sum Postop Eval Completion status Anesthesia document: Postop Eval 1 completed: Yes Anesthesia Postop Eval I Summary Anesthesia Postop Eval I Summary: Anesthesia Postop Eval I: Assessment Summary Airway patent Yes 02/23/24 10:44 IMMIGRATION CONSULTANT.ZOEOBDanny Spontaneous unlabored Yes 02/23/24 10:44 IMMIGRATION CONSULTANT.MACIEL respirations Mental status Asleep 02/23/24 10:44 IMMIGRATION CONSULTANT.ZOEOBDanny nausea No 02/23/24 10:44 IMMIGRATION CONSULTANT.MACIEL Vomiting No 02/23/24 10:44 IMMIGRATION CONSULTANT.MACIEL Anesthesia Postop Eval I: Fluid Summary Crystalloid volume administer 1,000 02/23/24 10:44 IMMIGRATION CONSULTANT.ZOEOBY (ml) Colloids volume administered ( ml) Blood Product volume administered (ml) Total IV fluid infused 1,000 02/23/24 10:44 IMMIGRATION CONSULTANT.MACIEL Anesthesia Postop Eval I: Summary Notes Anesthesia Complication No 02/23/24 10:44 IMMIGRATION CONSULTANT.MACIEL Anesthesia Complication Comment: Post-operative progress note Anesthesia: Postop Eval II Evaluation Mental status: Awake and Calm Pain Level: 2 nausea: No Vomiting: No Progress Note Post-operative progress note: Ativan helped with anxiety. Complications Anesthesia Complication: No
[2024-02-23] MEDS: Ketorolac 15 MG/ML Vial IV (17:34)
[2024-02-23] MEDS: 0.9% Normal Saline (1000mL) 1,000 ML 100 ML IV (20:08)
[2024-02-24 02:00] VITALS: PULSE 75
[2024-02-24 03:33] VITALS: BP 146/83; PULSE 79; RESP 20; TEMP 36.4; O2SAT 96
[2024-02-24] MEDS: 0.9% Normal Saline (1000mL) 1,000 ML 100 ML IV (05:45)
[2024-02-24 06:36] LABS: Absolute Lymphocyte Count 1.22 X10^3/uL (0.83-4.51); Absolute Neutrophil Count 7.5 X10^3/uL (2.0-7.7); Basophil# 0.02 X10^3/uL; Basophil% 0.2 % (0-1); Eosinophil# 0.01 X10^3/uL; Eosinophils% 0.1 % (0-5); Hematocrit 43.4 % (40-54); Hemoglobin 14.4 g/dL (13.0-16.5); Lymphocyte # 1.22 X10^3/ul (0.83-4.51); Lymphocyte % 12.8 % (19-41); Mean Corp Hgb Conc 33.2 g/dL (32-36); Mean Corpuscular Hgb 30.8 pg (27.0-32.0); Mean Corpuscular Volume 92.7 fL (80-94); Mean Platelet Vol. 9.1 fl (6.2-12.0); Monocyte# 0.71 X10^3/uL; Monocyte% 7.5 % (0-10); NRBC Flagged by Analyzer 0 % (0-5); Neutrophil # 7.51 X10^3/uL (2.7-7.7); Neutrophil % 79.1 % (47-70); Platelet Count 189 K/mm3 (150-450); RBC Distribution Width CV 14.1 % (11.6-14.6); RBC Distribution Width SD 47.6 fl (35.1-43.9); Red Blood Count 4.68 M/mm3 (4.6-6.2); White Blood Count 9.5 K/mm3 (4.4-11.0)
[2024-02-24 07:09] LABS: Anion Gap 5 (5-15); BUN 26 mg/dL (7-18); Calcium,Total 8.2 mg/dL (8.5-10.1); Chloride 109 mmol/L (98-107); EST Glomerular Filtration Rate 79 mL/min (>60); Est Glom Filt Rate - Afr Amer 95 mL/min (>60); Estimated Creatinine Clearance 83.33 ml/min; Glucose 111 mg/dL (74-106); Potassium 4.3 mmol/L (3.5-5.1); Sodium Level 137 mmol/L (136-145)
--- NOTE | 2024-02-24 08:16 | PCM.PN.SRG ---
Subjective Subjective Patient reports doing well with no complaints Objective Data Objective Data Vital Signs: Vital Signs Temp Pulse Resp BP Pulse Ox O2 Del Method O2 Flow Rate 97.6 F L 79 20 H 146/83 H 96 Room Air 2 02/24/24 03:33 02/24/24 03:33 02/24/24 03:33 02/24/24 03:02/24/24 03:02/24/24 03:02/23/24 14:58 Oxygen Flow Rate (L/min) 2 Oxygen Delivery Method Room Air Weight: 196 lb Body Mass Index (BMI) 24.5 Intake & Output: Intake and Output for Last 24 Hours 02/22/24 02/23/24 02/24/24 23:59 23:59 23:59 Intake Total 1219 / 1219 1852.67 / 1852.67 Balance 1219 / 1219 1852.67 / 1852.67 Lab / Micro Data 02/24/24 06:07 02/24/24 06:07 Labs: Laboratory Results - last 24 hr 02/24/24 06:07: WBC 9.5, RBC 4.68, Hgb 14.4, Hct 43.4, MCV 92.7, MCH 30.8, MCHC 33.2, RDW Std Deviation 47.6 H, RDW Coeff of Jane 14.1, Plt Count 189, MPV 9.1, Immature Gran % (Auto) 0.300, Neut % (Auto) 79.1 H, Lymph % (Auto) 12.8 L, Crowley % (Auto) 7.5, Eos % (Auto) 0.1, Baso % (Auto) 0.2, Absolute Neuts (auto) 7.5, Absolute Lymphs (auto) 1.22, Nucleated RBC % 0, Sodium 137, Potassium 4.3, Chloride 109 H, Carbon Dioxide 23.0, Anion Gap 5, BUN 26 H, Creatinine 1.00, Estim Creat Clear Calc 83.33, Est GFR (MDRD) Af Amer 95, Est GFR (MDRD) Non-Af 79, BUN/Creatinine Ratio 26.0 H, Glucose 111 H, Calcium 8.2 L Physical Exam Const oriented x3 and no apparent distress Resp normal respiratory effort GI soft to palpation and non-tender Assessment & Plan Assessment/Plan (1) Hiatal hernia with GERD: PLAN: Patient is doing well after laparoscopic hiatal hernia repair. I will start clear liquids this morning and if he tolerates that I will start fulls this afternoon and discharge this afternoon.
[2024-02-24 08:35] VITALS: BP 163/96; PULSE 88; RESP 18; TEMP 37; O2SAT 98
[2024-02-24] MEDS: Acetaminophen 650 MG/20 ML UDC PO ×2 (08:52→12:54)
[2024-02-24] MEDS: Losartan Potassium 25 MG Tablet PO (08:52)
[2024-02-24] MEDS: Pantoprazole Sodium 40 MG Tablet PO (08:53)
[2024-02-24] MEDS: Levothyroxine 50 MCG Tablet PO (08:53)
[2024-02-24] MEDS: Aspirin E.C. 81 MG Tablet PO (08:53)
--- NOTE | 2024-02-24 10:48 | CASEMGMT ---
Met with patient to complete MACKEY form. MACKEY form explained to patient who voiced understanding and signed form. Original form placed in pt?s chart and copy provided to patient. Che Renteria, Discharge Planning Asst
[2024-02-24 11:05] VITALS: BP 138/83; PULSE 84; RESP 18; TEMP 36.3; O2SAT 100
--- NOTE | 2024-02-24 11:06 | DCINST_ITS ---
Discharge Instructions Diet Discharge Diet: - (Follow soft food diet provided at discharge and office visit) Activity Discharge Activity: May Not Drive (3-5 days) and May Shower (today) Ice area for (Minutes): 20 Lifting Restrictions: No lifting >15 pounds for 2 weeks. No strenuous activities for 4 weeks Dressing / Incision Call your doctor if your incision/area has: Continuous Slow Oozing, Sudden Increased Bleeding, Increased Pain/ Swelling, Increased Redness, Foul Smelling Discharge and Swelling at the incision site Call your doctor if you observe: Fever of 101 or Higher and - (Difficulty swallowing) Suture Line Care: Avoid Pulling/Pushing and Avoid Pinching/Bending Remove Dressing in: 2 days (You may remove steri-strips (white tape strips) in 1 week) Cleanse incision/area with: Soap & Water Follow Up Care Please Follow Up With: Sohail Malloy MD When: Please contact our office at [phone], opt #2 to schedule a 7 day follow-up with Dr. Malloy. Test Results: Test results from this visit will be discussed in further detail at your follow- up appointment, if applicable. Discharge Plan Admission Admit Date/Time: 02/23/24 10:40 Primary Reason for Your Visit: S/p Laparoscopic toupet fundoplication Attending Provider: Sohail Malloy Primary Care Provider: Everett Antonio Instructions Additional Instructions / Restrictions: Laparoscopic Tiago fundoplication or Toupet procedure Diet ? This is outlined on a separate diet instruction sheet (see next page) Activity ? You may drive in 3-5 days but not while taking narcotic pain medication. ? I encourage walking. You may go up steps, one at a time. ? Do not swim or use hot tubs for 2 weeks. Lifting ? You may lift up to 15 pounds for 2 weeks. No strenuous exercises/activities for 4-6 weeks. Dressings/Incision ? You may shower OVER your plastic dressings ? Do NOT tub bathe for 1 week ? Leave plastic dressings on for 2 days. ? When plastic dressings are removed, you will find steri strips. It is okay to continue showering with them in place, pat them dry. ? You may remove steri-strips after 1 week. We recommend getting them soaking wet for easier removal. Medications ? Anesthesia used during surgery and pain medications may cause constipation. I recommend initiating on the day of surgery a fiber supplement like, Metamucil, Citrucel, FiberCon, Benefiber, or a generic form of these medications. 1 heaping tablespoon in water daily. You may continue to utilize any bowel regimen or oral laxatives that you routinely take. ? As long as you are not intolerant to Tylenol, acetaminophen, ibuprofen, Motrin, Advil, Aleve, or similar medications, I would recommend transitioning to these [id number] medicines as soon as possible instead of continued use of narcotic pain medication. Follow up ? You should call [facility] soon after surgery, at [phone] option 1 to make a follow up appointment for 7 days after your surgery. Diet After Tiago Fundoplication Surgery This diet information is for patients who have recently had Tiago fundoplication surgery to correct reflux disease or to repair various types of hernias, such as hiatal hernia and intrathoracic stomach. This diet may also be used for other gastrointestinal surgeries, such as Heller myotomy and repair of achalasia. The diet will help control diarrhea, excess gas and swallowing problems, which may occur after this type of surgery. Keeping Your Stomach from Stretching ?? Eat small, frequent meals (six to eight per day). This will help you consume the majority of the nutrients you need without causing your stomach to feel full or distended. ?? Drinking large amounts of fluids with meals can stretch your stomach. You may drink fluids between meals as often as you like, but limit fluids to 1/2 cup (4 fluid ounces) with meals and one cup (8 fluid ounces) with snacks. ?? Sit upright while eating and stay upright for 30 minutes after each meal. [place] can help food move through your digestive tract. Do not lie down after eating. Sit upright for 2 hours after your last meal or snack of the day. ?? Eat very slowly. Take your time when eating. ?? Take small bites and chew your food well to heater operator helper in swallowing and digestion. ?? Avoid crusty breads and sticky, gummy foods, such as bananas, fresh doughy breads, rolls and doughnuts. These types of foods become sticky and difficult to swallow. ?? Toasted breads tend to be better tolerated. ?? Lastly, if you eat sweets, consume them at the end of your meal to avoid a group of symptoms referred to as ?dumping syndrome?. This describes the rapid emptying of foods from the stomach to the small intestine. Sweetened beverages, candy and desserts move more rapidly and dump quickly into the intestines. This can cause symptoms of nausea, weakness, cold sweats, cramps, diarrhea and dizzy spells. Avoiding Gas ?? Avoid drinking through a straw. Do not chew gum or tobacco. These actions cause you to swallow air, which produces excess gas in your stomach. Chew with your mouth closed. ?? Avoid any foods that cause stomach gas and distention. These foods include corn, dried beans, peas, lentils, onions, broccoli, cauliflower and any food from the cabbage family. ?? Avoid carbonated drinks, alcohol, citrus and tomato products. When will I be able to eat a soft diet? After Tiago fundoplication surgery, your diet will be advanced slowly by your surgeon. Generally, you will be on a clear liquid diet for the first few meals. Then you will advance to the full liquid diet for a meal or two and eventually to a [place] soft diet. Please be aware that each patient's tolerance to food is different. Your doctor will advance your diet depending on how well you progress after surgery. Clear Liquid Diet The first diet after surgery is the clear liquid diet. It includes the following liquids: ?? Apple juice ?? Cranberry juice ?? Grape juice ?? Chicken broth ?? Beef broth ?? Flavored gelatin (Jell-O?) ?? Decaf tea and coffee ?? Caffeinated beverages are permitted based on tolerance ?? Popsicles ?? [place] ice Carbonated drinks (sodas) are not allowed for the first six to eight weeks after surgery. After this time you can try them again in small amounts. Full Liquid Diet (DISCHARGE DIET) The full liquid diet contains anything on the clear liquid diet, plus: ?? Milk, soy, rice and almond (no chocolate) ?? Cream of wheat, cream of rice, grits ?? Strained creamed soups (no tomato or broccoli) ?? Vanilla and strawberry-flavored ice cream ?? Sherbet ?? Blended, custard styled or whipped yogurt (plain or vanilla only) ?? Vanilla and butterscotch pudding (no chocolate or coconut) ?? Nutritional drinks including Ensure?, Boost?, [place] Instant Breakfast? (no chocolate-flavored) Note: Dairy products, such as milk, ice cream and pudding, may cause diarrhea in some people just after surgery. You may need to avoid milk products. If so, substitute them with lactose-free beverages, such as soy, rice, Lactaid? or almond milks. At your 1 week follow-up, Dr. Malloy will discuss with you when to advance your diet. Discharge Orders/Prescriptions Prescriptions: New acetaminophen 650 mg/20.3 mL Solution 650 mg PO Q4H PRN PRN (Reason: Pain 1-10 Or Fever) Qty: 0 0RF Continued losartan 25 mg tablet 25 mg PO QDAY Qty: 30 11RF simvastatin 20 MG tablet 20 mg PO QHS Qty: 30 11RF fluticasone propionate [Allergy Relief (fluticasone)] 50 mcg/actuation spray,suspension 1 spray INTRANASAL QDAY PRN (Reason: Nasal Congestion) levothyroxine 50 mcg tablet 50 mcg PO DAILY aspirin 81 MG tablet,delayed release (DR/EC) 81 mg PO DAILY pantoprazole 40 mg tablet,delayed release (DR/EC) 40 mg PO DAILY Other Ambulatory Orders: 12 Lead EKG (Routine) Timeframe: 20240222 Location: None Selected Ordered By: Dr. Aquiles Griggs Referrals / Follow Up: Sohail Malloy MD [Med Staff - Active Staff] - (Please follow-up in [address] Malloy) Everett Antonio MD [Primary Care Provider] - Disposition Disposition (needs filled in before D/C Order can be placed): Home, Self Care
== END 2024-02-24 13:48 | disposition home or self-care (01) ==
LOC: SDC 15:05 → MS3 15:05
PROVIDERS: Anesthesiology; Admitting Provider Surgery; PCP Family Medicine; Referring Provider Surgery; Visit Provider Surgery
PROC: (CPT 43325; principal; 2024-02-23 08:30)
DX: K44.9 Diaphragmatic hernia without obstruction or gangrene (principal); E07.9 Disorder of thyroid, unspecified; I25.10 Atherosclerotic heart disease of native coronary artery without angina pectoris; K21.9 Gastro-esophageal reflux disease without esophagitis; E78.00 Pure hypercholesterolemia, unspecified; I10 Essential (primary) hypertension; Z87.891 Personal history of nicotine dependence; Z79.899 Other long term (current) drug therapy; Z79.82 Long term (current) use of aspirin
CPT/HCPCS: 43281; 00790; 36415; 80048; 84443; 85025; 85027; 93005; 94668; 96374; 96375; 99221; J7030; J7120; G0378; J2405

== ENCOUNTER → 2024-03-24 | Outpatient (CLI) | payer MEDICARE, OTHER, SELFPAY ==
--- NOTE | 2024-03-24 09:29 | ECHOCS_ITS ---
Reason For Study: Valve Replacement Eval Procedure This was a 2D Doppler, Color Flow transthoracic echocardiogram. Contrast injection was performed. Exam performed in department. Left Ventricle Normal LV size. Left ventricular systolic function is normal. Stage 1 diastolic dysfunction. No regional wall motion abnormalities noted. Right Ventricle Normal RV size. Normal systolic function. Atria Normal left atrium. Normal right atrium. Mitral Valve Normal mitral valve. Mild (1+) eccentric mitral valve insufficiency. Tricuspid Valve Normal tricuspid valve. Mild (1+) tricuspid valve insufficiency. Pulmonary artery systolic pressure is 34 mmHg. Aortic Valve Peak aortic valve gradient 27 mmHg. Mean aortic valve gradient 14 mmHg. Mild (1+) aortic valve insufficiency. Bioprosthetic aortic valve. Pulmonic Valve Normal pulmonic valve. Great Vessels Normal aortic root. The pulmonary artery is normal size. Inferior vena cava collapse with respiration. Pericardium/Pleural No pericardial effusion. Medication 22 gauge I.V. with prn adaptor inserted into right arm. Diluted definity 2ml given slow IV push to enhance endocardial definition. MMode/2D Measurements & Calculations LVIDd: 4.7 cm IVSd: 0.86 cm LVOT diam: 2.0 cm LVIDs: 2.9 cm LVPWd: 1.1 cm RVDd: 3.6 cm FS: 37.9 % LVOT area: 3.0 cm2 LAV(MOD-bp): 56.9 ml LVAd ap4: 25.8 cm2 SV(MOD-sp4): 49.2 ml LAV(MOD-bp) Indexed: 26.1 ml/m2 LVLd ap4: 7.4 cm LAV(MOD-sp2): 55.6 ml EDV(MOD-sp4): 71.0 ml LAV(MOD-sp4): 58.1 ml EDV(sp4-el): 76.6 ml LVAs ap4: 12.6 cm2 LVLs ap4: 6.0 cm ESV(MOD-sp4): 21.8 ml ESV(sp4-el): 22.2 ml EF(MOD-sp4): 69.2 % EF(sp4-el): 71.1 % SV(sp4-el): 54.5 ml LA A4 area: 20.2 cm2 LA dimension(2D): 4.1 cm RA A4 area: 18.4 cm2 TAPSE: 1.9 cm Time Measurements MV dec time: 0.23 sec Doppler Measurements & Calculations MV E max leonel: 67.2 cm/sec Lat Peak E' Leonel: 4.7 cm/sec Med Peak E' Leonel: 5.3 cm/sec MV A max leonel: 88.9 cm/sec E/E' lat: 14.4 E/E' med: 12.8 MV E/A: 0.76 MV V2 max: 101.0 cm/sec MV P1/2t max leonel: 77.3 cm/sec Ao V2 max: 258.5 cm/sec MV max P.1 mmHg MV P1/2t: 88.3 msec Ao max P.8 mmHg MV V2 mean: 58.8 cm/sec MV dec slope: 256.4 cm/sec2 Ao V2 mean: 177.3 cm/sec MV mean P.6 mmHg MVA(P1/2t): 2.5 cm2 Ao mean P.3 mmHg MV V2 VTI: 26.7 cm Ao V2 VTI: 54.6 cm MVA(VTI): 2.4 cm2 AV (velocity ratio): 0.40 TAINA(I,D): 1.2 cm2 TAINA(V,D): 1.1 cm2 AI max leonel: 488.7 cm/sec LV V1 max: 91.4 cm/sec SV(LVOT): 65.0 ml AI max P.5 mmHg LV V1 max P.4 mmHg LV V1 mean P.1 mmHg AI dec slope: 296.9 cm/sec2 LV V1 mean: 68.9 cm/sec AI P1/2t: 482.1 msec LV V1 VTI: 21.7 cm PA V2 max: 100.9 cm/sec TR max leonel: 276.9 cm/sec PA max PG (full): 3.1 mmHg TR max P.7 mmHg PA V2 mean: 65.7 cm/sec PA mean PG (full): 1.5 mmHg ECHO/Echo Complete W/ Contrast Interpretation Summary Normal LV size. Left ventricular systolic function is normal. Stage 1 diastolic dysfunction. Bioprosthetic aortic valve. Contrast injection was performed. Ordering Physician: David Jackson Referring Physician: David Jackson Performed By: Tomás Alejo [facility]
--- OUTSIDE RECORDS SUMMARY | 2024-03-24 09:51 | XMS RPT_ITS | CCD ---
Author Organization [facility] Care Team Providers Care Fabrication Inspector Name Role Phone DeFinis, Harumi Y Unavailable Unavailable Rosaline Scherer Unavailable Unavailable Cristy ODELL, Che A Unavailable Unavailable Cristy ODELL, Che A Unavailable Unavailable CHAD VILLEGAS Unavailable Unavailable CHAD VILLEGAS Unavailable Unavailable NO REFERRING Unavailable Unavailable Julius, Fabrizioumi Y Unavailable Unavailable JOSE R Hernandez, Gladys Garza UnavailSlava Asher Unavailable Unavailable GLENN [place] Attending Unavailable [facility] Primary Care Unavailable GLENN [place] Admitting Unavailable GLENN [place] Attending Unavailable [facility] Unavailable GLENN [place] Admitting Unavailable Medications Completed/Discontinued Medications Medication Drug Class(es) Dates Sig (Normalized) Sig (Original) 200 actuat albuterol 0.09 mg/actuat metered dose inhaler (20 sources) beta2-Adrenergic Agonist Start: 12-27-2015 PROAIR HFA 108 (90 Base) MCG/ACT AERS as directed as needed ALBUTEROL SULFATE [id number] Joey Dempsey MD Start: 12-27-2015 PROAIR HFA 108 (90 Base) MCG/ACT AERS as directed ALBUTEROL SULFATE [id number] Gladys Hernandez RN Start: 12-27-2015 End: 05-12-2016 PROAIR HFA 108 (90 Base) MCG /ACT AERS as directed as needed ALBUTEROL SULFATE [id number] Joey Dempsey MD Start: 12-27-2015 End: 05-12-2016 PROAIR HFA 108 (90 Base) MCG /ACT AERS as directed as needed ALBUTEROL SULFATE [id number] Joey Dempsey MD Start: 12-27-2015 End: 05-12-2016 PROAIR HFA 108 (90 Base) MCG /ACT AERS as directed as needed ALBUTEROL SULFATE [id number] Joey Dempsey MD Start: 12-27-2015 PROAIR HFA 108 (90 Base) MCG/ACT AERS as directed as needed ALBUTEROL SULFATE [id number] Joey Dempsey MD Start: 12-27-2015 PROAIR HFA 108 (90 Base) MCG/ACT AERS as directed ALBUTEROL SULFATE [id number] Gladys Hernandez RN amiodarone hydrochloride 200 mg oral tablet (14 sources) Antiarrhythmic Start: 05-12-2016 End: 05-12-2016 take 1 tablet by mouth once daily AMIODARONE HCL 200 MG TABS One tablet by mouth daily AMIODARONE HCL [id number] Joey Dempsey MD aspirin 81 mg oral tablet (20 sources) Platelet Aggregation Inhibitor, Nonsteroidal Anti-inflammatory Drug Start: 12-27-2015 take 1 tablet by mouth once daily ASPIRIN 81 MG TABS One tablet by mouth daily ASPIRIN [id number] Gladys Hernandez RN Start: 12-27-2015 take 1 tablet by arnav th once daily ADULT ASPIRIN EC LOW STRENGTH 81 MG TBEC One tablet by mouth daily ASPIRIN [id number] Harumi Y DeFinis Start: 12-27-2015 take 1 tablet by arnav th once daily ASPIRIN EC 81 MG TBEC One tablet by mouth daily ASPIRIN [id number] Harumi Y DeFinis etodolac 400 mg oral tablet (14 sources) Nonsteroidal Anti-inflammatory Drug Start: 12-27-2015 End: 05-12-2016 ETODOLAC 400 MG TABS As needed ETODOLAC [id number] Joey Dempsey MD fexofenadine hydrochloride 180 mg oral tablet (20 sources) Histamine-1 Receptor Antagonist Start: 12-27-2015 End: 05-12-2016 take 1 tablet by mouth once daily VERONICA 180 MG TABS One tablet by mouth daily FEXOFENADINE HCL Gladys Hernandez, JOSE R fluticasone propionate 0.05 mg/actuat metered dose nasal spray (13 sources) Corticosteroid Start: 02-21-2016 End: 11-16-2016 take 1 spray(s) nasal route once daily FLONASE ALLERGY RELIEF 50 MCG/ACT SUSP 1 spray each nostril daily FLUTICASONE PROPIONATE [id number] Lucas Mcdermott DO Start: 02-21-2016 take 1 spray(s) nasa l route once daily FLONASE ALLERGY RELIEF 50 MCG/ACT SUSP 1 spray each nostril daily FLUTICASONE PROPIONATE [id number] Lucas Mcdermott DO Start: 02-21-2016 End: 11-16-2016 take 1 spray(s) nasal route once daily FLONASE ALLERGY RELIEF 50 MCG/ACT SUSP 1 spray each nostril daily FLUTICASONE PROPIONATE [id number] Joey Dempsey MD hydroCHLOROthiazide 12.5 mg oral tablet (7 sources) Thiazide Diuretic Start: 02-18-2016 take 1 tablet by mouth once daily HYDROCHLOROTHIAZIDE 12.5 MG TABS One tablet by mouth daily HYDROCHLOROTHIAZIDE [id number] Joey Dempsey MD hydroCHLOROthiazide 12.5 mg / losartan potassium 50 mg oral tablet (14 sources) Thiazide Diuretic, Angiotensin 2 Receptor Marco Antonio Start: 02-12-2016 End: 02-18-2016 take 1 tablet by mouth once daily HYZAAR 50-12.5 MG TABS One tablet by mouth daily LOSARTAN POTASSIUM-HCTZ [id number] Joey Dempsey MD Start: 02-12-2016 End: 02-18-2016 take 1 tablet by mouth once daily HYZAAR 50-12.5 MG TABS One tablet by mouth daily LOSARTAN POTASSIUM-HCTZ [id number] Valorie Mahajan RN Start: 02-12-2016 take 1 tablet by arnav th once daily HYZAAR 50-12.5 MG TABS One tablet by mouth daily LOSARTAN POTASSIUM-HCTZ [id number] Joey Dempsey MD losartan potassium 25 mg oral tablet (7 sources) Angiotensin 2 Receptor Marco Antonio Start: 02-18-2016 take 1 tablet by mouth once daily LOSARTAN POTASSIUM 25 MG TABS One tablet by mouth daily LOSARTAN POTASSIUM [id number] Joey Dempsey MD metoprolol tartrate 25 mg oral tablet (13 sources) beta-Adrenergic Marco Antonio Start: 05-12-2016 End: 11-16-2016 take 1 tablet by mouth twice daily METOPROLOL TARTRATE 25 MG TABS One tablet by mouth twice daily METOPROLOL TARTRATE [id number] Joey Dempsey MD simvastatin 20 mg oral tablet (7 sources) HMG-CoA Reductase Inhibitor Start: 01-24-2016 take 1 tablet by mouth at bedtime ZOCOR 20 MG TABS One tablet by mouth at bedtime. SIMVASTATIN [id number] Musa Hall NP warfarin sodium 2.5 mg oral tablet (14 sources) Vitamin K Antagonist Start: 05-12-2016 End: 07-13-2016 COUMADIN 2.5 MG TABS Take as directed WARFARIN SODIUM [id number] Blanka Walker RN Problems Active Problems Problem Classification Problem Date Documented Date Episodic/Chronic Cardiac and circulatory congenital anomalies (7 sources) Bicuspid aortic valve; Translations: [Congenital insufficiency of aortic valve] Onset: 12-27-2015 12-27-2015 Chronic Cardiac dysrhythmias (8 sources) Atrial fibrillation; Translations: [Paroxysmal atrial fibrillation] Onset: 05-08-2016 05-12-2016 Chronic Chronic obstructive pulmonary disease and bronchiectasis (7 sources) Chronic obstructive lung disease; Translations: [Chronic obstructive pulmonary disease, unspecified] Onset: 02-21-2016 02-21-2016 Chronic Coronary atherosclerosis and other heart disease (7 sources) Atherosclerotic heart disease of [place] coronary artery without angina pectoris; Translations: [Atherosclerotic heart disease of [place] coronary artery without angina pectoris] Onset: 02-17-2016 02-17-2016 Chronic Disorders of lipid metabolism (7 sources) Hyperlipidemia; Translations: [Hyperlipidemia, unspecified] Onset: 12-27-2015 12-27-2015 Chronic Heart valve disorders (18 sources) Nonrheumatic aortic (valve) stenosis; Translations: [Nonrheumatic mitral (valve) insufficiency] Onset: 12-27-2015 12-27-2015 Chronic Other upper respiratory disease (7 sources) Allergic rhinitis; Translations: [Allergic rhinitis, unspecified] Onset: 02-21-2016 02-23-2016 Chronic Unclassified (4 sources) Replacement of aortic valve ; Translations: [Presence of prosthetic heart valve] Onset: 05-12-2016 05-12-2016 Unclassified (4 sources) Long-term drug therapy; Translations: [Other assisted (current) drug therapy] Onset: 12-27-2015 12-27-2015 Past or Other Problems Problem Classification Problem Date Documented Date Episodic/Chronic Coma; stupor; and brain damage (7 sources) Daytime somnolence; Translations: [Somnolence] Onset: 6 02-10-2016 Episodic Conditions associated with dizziness or vertigo (7 sources) Dizziness and giddiness; Translations: [Dizziness and giddiness] Onset: 6 12-27-2015 Episodic Malaise and fatigue (7 sources) Malaise and fatigue; Translations: [Other fatigue] Onset: 6 02-10-2016 Episodic Nonspecific chest pain (14 sources) Chest pain; Translations: [Chest pain, unspecified] Onset: 6 02-10-2016 Episodic Other aftercare (3 sources) Other supervisor long goods (current) drug therapy; Translations: [Other supervisor long goods (current) drug therapy] Onset: 6 12-27-2015 Episodic Other bone disease and musculoskeletal deformities (1 source) Other specified disorders of bone density and structure, other site; Translations: [OTH D/O BONE DEN STRUCT] Onset: 6 Episodic Other lower respiratory disease (3 sources) Dyspnea; Translations: [Dyspnea, unspecified] Onset: 6 12-27-2015 Episodic Other lower respiratory disease (3 sources) Snoring; Translations: [Snoring] Onset: 6 02-10-2016 Episodic Other screening for suspected conditions (not mental disorders or infectious disease) (7 sources) Abnormal electrocardiogram [ECG] [EKG]; Translations: [Abnormal electrocardiogram [ECG] [EKG]] Onset: 6 02-10-2016 Episodic Other screening for suspected conditions (not mental disorders or infectious disease) (15 sources) Lung function testing abnormal; Translations: [Dyspnea] Onset: 6 01-29-2016 Episodic Results Test Name Value Interpretation Reference Range Facility Lab Report: Lipid Profileon 05-19-2017 Cholesterol 168 mg/dL Invalid Interpretation Code 200 [employer] Work Phone: [phone] HDL Cholesterol 63 mg/dL Invalid Interpretation Code [employer] Work Phone: [phone] LDL Cholesterol 89 mg/dL Invalid Interpretation Code 0-130 [employer] Work Phone: [phone] Triglyceride 79 mg/dL Invalid Interpretation Code [employer] Work Phone: [phone] very low density lipoproteins 16 mg/dL Invalid Interpretation Code 5-40 [employer] Work Phone: [phone] Lab Report: Liver Profileon 05-19-2017 Alanine aminotransferase (ALT) 23 U/L Invalid Interpretation Code 12-78 [employer] Work Phone: [phone] Albumin 3.5 g/dL Invalid Interpretation Code 3.4-5.0 [employer] Work Phone: [phone] Alkaline phosphatase (ALP) 77 U/L Invalid Interpretation Code 45-117 [employer] Work Phone: [phone] Aspartate aminotransferase (AST) 24 U/L Invalid Interpretation Code 15-37 [employer] Work Phone: [phone] Bilirubin (direct) 0.15 mg/dL Invalid Interpretation Code 0.00-0.30 [employer] Work Phone: [phone] Bilirubin (total) 0.60 mg/dL Invalid Interpretation Code 0.20-1.00 [employer] Work Phone: [phone] Globulin 3.9 g/dL Invalid Interpretation Code 2.2-4.2 [employer] Work Phone: [phone] Protein 7.4 g/dL Invalid Interpretation Code 6.4-8.2 [employer] Work Phone: [phone] Clinical Lists 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: 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 Left ventricular Ejection fraction 65 % Invalid Interpretation Code [employer] Work Phone: [phone] Lab Report: Lipid Profileon 11-17-2016 Cholesterol in HDL mass conc 57 mg/dL Invalid Interpretation Code [employer] Work Phone: [phone] Cholesterol in LDL mass conc 101 mg/dL Invalid Interpretation Code 0-130 [employer] Work Phone: [phone] Cholesterol mass conc 182 mg/dL Invalid Interpretation Code 200 [employer] Work Phone: [phone] Lipoprotein.pre-beta mass conc 24 mg/dL Invalid Interpretation Code 5-40 [employer] Work Phone: [phone] Triglyceride mass conc 122 mg/dL Invalid Interpretation Code [employer] Work Phone: [phone] Lab Report: Liver Profileon 11-17-2016 Albumin mass conc 3.6 g/dL Invalid Interpretation Code 3.4-5.0 [employer] Work Phone: [phone] Alkaline phosphatase (ALP) 80 U/L Invalid Interpretation Code 45-117 [employer] Work Phone: [phone] ALP enzyme act/vol (Bld) 80 U/L 45-117 [employer] Work Phone: [phone] ALT enzyme act/vol 25 U/L Invalid Interpretation Code 12-78 [employer] Work Phone: [phone] AST enzyme act/vol 26 U/L Invalid Interpretation Code 15-37 [employer] Work Phone: [phone] Bilirubin mass conc 1.00 mg/dL Invalid Interpretation Code 0.20-1.00 [employer] Work Phone: [phone] Bilirubin.direct mass conc 0.16 mg/dL Invalid Interpretation Code 0.00-0.30 [employer] Work Phone: [phone] Globulin 4.0 g/dL High 2.3-3.5 [employer] Work Phone: [phone] Globulin mass conc (S) 4.0 g/dL High 2.3-3.5 [facility] [employer] Work Phone: [phone] Protein mass conc 7.6 g/dL Invalid Interpretation Code 6.4-8.2 [employer] Work Phone: [phone] Office Visiton 11-16-2016 Documentation of current medications (procedure) Done Invalid Interpretation Code [employer] Work Phone: [phone] Protein mass conc Done [employer] Work Phone: Append: Thoracic Referralon 05-18-2016 Clinical consultation report (record artifact) [id number] Invalid Interpretation Code [employer] Work Phone: [phone] Clinical 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 Left ventricular Ejection fraction 60-65 Invalid Interpretation Code [employer] Work Phone: [phone] Office Visiton 05-12-2016 Protein mass conc Done [employer] Work Phone: [phone] Tobacco smoking status NHIS Tobacco smoking status NHIS Invalid Interpretation Code [employer] Work Phone: [phone] Tobacco smoking status IDIS Former smoker [employer] Work Phone: [phone] Tobacco use [facility] Former smoker Invalid Interpretation Code [employer] Work Phone: [phone] Replaced Document: [employer] E CG Observationson 05-12-2016 EKG QRS axis 94 deg Invalid Interpretation Code [employer] Work Phone: [phone] electrocardiogram interpretation Sinus Rhythm -Nonspecific QRS widening and right axis -consider right ventricular hypertrophy. -Left atrial enlargement. ABNORMAL Invalid Interpretation Code [employer] Work Phone: [phone] GE use only - for [employer] import when terms are not otherwise specified 464 ms Invalid Interpretation Code [employer] Work Phone: [phone] Interpretation Sinus Rhythm -Nonspecific QRS widening and right axis -consider right ventricular hypertrophy. -Left atrial enlargement. ABNORMAL Invalid Interpretation Code [employer] Work Phone: [phone] P [place] 71 deg Invalid Interpretation Code [employer] Work Phone: [phone] P wave axis, electrocardiogram 71 deg Invalid Interpretation Code [employer] Work Phone: [phone] ID Interval 188 ms Invalid Interpretation Code [employer] Work Phone: [phone] ID interval, electrocardiogram 188 ms Invalid Interpretation Code [employer] Work Phone: [phone] Pulse (Heart Rate) 90 /min Invalid Interpretation Code [employer] Work Phone: [phone] QRS axis, electrocardiogram 94 deg Invalid Interpretation Code [employer] Work Phone: [phone] QRS Duration 110 ms Invalid Interpretation Code [employer] Work Phone: [phone] QRS duration, electrocardiogram 110 ms Invalid Interpretation Code [employer] Phone: [phone] QT Interval new path ms Invalid Interpretation Code [employer] Work Phone: [phone] QT interval, electrocardiogram new path ms Invalid Interpretation Code [employer] Work Phone: [phone] QTc [place] 464 ms Invalid Interpretation Code [employer] Work Phone: [phone] T Ravena 56 deg Invalid Interpretation Code [employer] Work Phone: [phone] T wave axis, electrocardiogram 56 deg Invalid Interpretation Code [employer] Work Phone: [phone] Lab Report: Lipid Profileon 02-26-2016 Cholesterol in HDL mass conc 55 mg/dL Invalid Interpretation Code [employer] Work Phone: [phone] Cholesterol in LDL mass conc 72 mg/dL Invalid Interpretation Code 0-130 [employer] Work Phone: [phone] Cholesterol mass conc 140 mg/dL Invalid Interpretation Code 200 [employer] Work Phone: [phone] Lipoprotein.pre-beta mass conc 13 mg/dL Invalid Interpretation Code 5-40 [employer] Work Phone: [phone] Triglyceride mass conc 65 mg/dL Invalid Interpretation Code [employer] Work Phone: [phone] Lab Report: Liver Profileon 02-26-2016 Albumin mass conc 3.6 g/dL Invalid Interpretation Code 3.4-5.0 [employer] Phone: [phone] Alkaline phosphatase (ALP) 99 U/L Invalid Interpretation Code 50-136 [employer] Work Phone: [phone] ALP enzyme act/vol (Bld) 99 U/L 50-136 [employer] Work Phone: [phone] ALT enzyme act/vol 30 U/L Invalid Interpretation Code 12-78 [employer] Work Phone: [phone] AST enzyme act/vol 26 U/L Invalid Interpretation Code 15-37 [employer] Work Phone: [phone] Bilirubin mass conc 0.70 mg/dL Invalid Interpretation Code 0.20-1.00 [employer] Work Phone: [phone] Bilirubin.direct mass conc 0.14 mg/dL Invalid Interpretation Code 0.00-0.30 [facility] Work Phone: [phone] Globulin 3.8 g/dL High 2.3-3.5 [facility] Work Phone: [phone] Globulin mass conc (S) 3.8 g/dL High 2.3-3.5 [facility] Work Phone: [phone] Protein mass conc 7.4 g/dL Invalid Interpretation Code 6.4-8.2 [facility] Work Phone: [phone] Lab Report: Basic Metabolic Profile (BMP)on 01-21-2016 Anion gap 5 mmol/L Invalid Interpretation Code 5-15 [facility] Work Phone: [phone] Anion gap molar conc 5 mmol/L 5-[address] [facility] Work Phone: [phone] Calcium mass conc 8.9 mg/dL Invalid Interpretation Code 8.5-10.1 [facility] Work Phone: [phone] Chloride molar conc 105 mmol/L Invalid Interpretation Code 98-107 [facility] Work Phone: [phone] CO2 25.0 mmol/L Invalid Interpretation Code 21.0-32.0 [facility] Work Phone: [phone] CO2 ppres (BldV) 25.0 mmol/L 21.0-32.0 [facility] Work Phone: [phone] Creatinine mass conc 0.97 mg/dL Invalid Interpretation Code 0.70-1.30 [facility] Work Phone: [phone] eGFR (non-black) 101 mL/min/{1.73_m2} Invalid Interpretation Code >60 [facility] Work Phone: [phone] EST GFR - AA 101 mL/min >60 [facility] Work Phone: [phone] GFR/1.73 sq M predicted among non-blacks MDRD vol rate/area (S/P/Bld) 83 mL/min/{1.73_m2} Invalid Interpretation Code >60 [facility] Work Phone: [phone] Glucose 101 mg/dL Invalid Interpretation Code 70-110 [facility] Work [phone] Glucose mass conc 101 mg/dL Invalid Interpretation Code 70-110 [facility] Work [phone] Potassium molar conc 3.6 mmol/L Invalid Interpretation Code 3.5-5.1 [facility] Work Phone: [phone] Sodium molar conc 135 mmol/L Low 136-145 [facility] Work [phone] Urea nitrogen mass conc 23 mg/dL High 7-18 [facility] Work Phone: [phone] Urea nitrogen/Creatinine mass ratio 23.7 RATIO High 10-20 [facility] Work Phone: [phone] Lab Report: CBC-Complete Blo od Cnt No Diffon 01-21-2016 Erythrocyte distribution width Ratio (RBC) 14.3 % 11.6-14.6 [facility] Work Phone: [phone] Erythrocyte distribution width Ratio (RBC) 46.9 fL High 35.1-43.9 [facility] Work Phone: [phone] Erythrocytes (RBC) 4.46 10*6/uL Low 4.6-6.[address] [facility] Work Phone: [phone] Hematocrit (HCT) 41.8 % Invalid Interpretation Code 40-54 [facility] Work Phone: [phone] Hematocrit Volume Fraction (Bld) 41.8 % 40-54 [facility] Work Phone: [phone] Hemoglobin mass conc (Bld) 14.5 g/dL Invalid Interpretation Code 13.0-16.5 [facility] Work Phone: [phone] MCH 32.5 pg High 27.0-32.0 [facility] Work Phone: [phone] MCH Entitic mass (RBC) 32.5 pg High 27.0-32.0 [facility] Work Phone: [phone] MCHC 34.7 G/GL Invalid Interpretation Code 32-36 [facility] Work Phone: [phone] MCHC mass conc (RBC) 34.7 G/GL 32-[address] [facility] Work Phone: MCV 93.7 fL Invalid Interpretation Code 80-94 [facility] Work [phone] MCV Entitic volume (RBC) 93.7 fL 80-94 [facility] Work Phone: [phone] Platelet mean volume Entitic volume (Bld) 9.3 fL 6.2-12.0 [facility] Work Phone: [phone] Platelets 210 10*3/mm3 Invalid Interpretation Code 150-450 [facility] Work Phone: [phone] Platelets #/vol (Bld) 210 10*3/mm3 150-450 [facility] Work Phone: [phone] PMV by Genna 9.3 fL Invalid Interpretation Code 6.2-12.0 [facility] Work Phone: [phone] RBC #/vol (Bld) 4.46 10*6/uL Low 4.6-6.2 [facility] Work Phone: [phone] RDW SD 46.9 fL High 35.1-43.9 [facility] Work Phone: [phone] RDW-CA 14.3 % Invalid Interpretation Code 11.6-14.6 [facility] Work Phone: [phone] red blood cell distribution width, size density 46.9 fL High 35.1-43.9 [facility] Work Phone: [phone] WBC #/vol (Bld) 6.2 10*3/uL 4.4-11.0 [facility] Work Phone: [phone] WBC (Leukocytes) 6.2 10*3/uL Invalid Interpretation Code 4.4-11.0 [facility] Work Phone: [phone] Lab Report: Partial Thrombop last Timeon 01-21-2016 aPTT Coag time (Bld) 30.9 s Invalid Interpretation Code 24.1-36.2 [facility] Work Phone: [phone] Lab Report: Prothrombin Time w/INRon 01-21-2016 INR Coag RelTime (PPP) 1.0 {INR} Invalid Interpretation Code [facility] Work Phone: [phone] INR in blood by coagulation 1.0 {INR} Invalid Interpretation Code [facility] Work Phone: [phone] Prothrombin time (PT) Coag time (PPP) 13.2 s Invalid Interpretation Code 11.7-14.9 [facility] Work Phone: [phone] Vital Signs Date Time Vital Sign Value Performing Clinician Dolly jeffers 11-16-2016 16:24-0400 BMI (Body Mass Index) 24.75 kg/m2 Rosaline Perla [employer] [facility] Work Phone: 11-16-2016 16:24-0400 BP Diastolic 60 mm[Hg] Rosaline Perla [facility] Work Phone: 11-16-2016 16:24-0400 BP Systolic 110 mm[Hg] Rosaline Perla [facility] Work Phone: 11-16-2016 16:24-0400 Height 190.5 cm Rosaline Perla [facility] Work Phone: 11-16-2016 16:24-0400 Pulse (Heart Rate) 108 /min Rosaline Perla [facility] Work Phone: 11-16-2016 16:24-0400 Respiratory Rate 18 /min Rosaline Perla [facility] Work Phone: 11-16-2016 16:24-0400 Weight 89.81 kg Rosaline Perla [facility] Work Phone: 05-12-2016 15:28-0500 Heart rate 90 /min Slava Perla [facility] Work Phone: 05-12-2016 15:19-0500 BMI (Body Mass Index) 24.25 kg/m2 Slava Perla [employer] [facility] Work Phone: 05-12-2016 15:19-0500 BP Diastolic 84 mm[Hg] Slava Perla [facility] Work Phone: 05-12-2016 15:19-0500 BP Systolic 124 mm[Hg] Slava [facility] Work Phone: 05-12-2016 15:19-0500 BSA (Body Surface Area) 2.17 m2 Harumi DeFinis [facility] Work Phone: 05-12-2016 15:190500 Height 190.5 cm Harumi DeFinis [facility] Work Phone: 05-12-2016 15:19-0500 Pulse (Heart Rate) 94 /min Harumi DeFinis [facility] Work Phone: 05-12-2016 15:19-0500 Pulse Oximetry 96 % Harumi DeFinis [facility] Work Phone: 05-12-2016 15:19-0500 Respiratory Rate 20 /min Harumi DeFinis [facility] Work Phone: 05-12-2016 15:19-0500 Weight 88 kg Harumi DeFinis [facility] Work Phone: 02-21-2016 14:05-0400 Height 190.5 cm Harumi DeFinis [facility] Work Phone: 02-21-2016 14:05-0400 Pulse Oximetry 98 % Harumi DeFinis [facility] Work Phone: 02-21-2016 14:05-0400 Weight 90 kg Harumi DeFinis [facility] Work Phone: 12-31-2015 14:55-0400 BP Diastolic 76 mm[Hg] Harumi DeFinis [facility] Work Phone: 12-31-2015 14:55-0400 BP Systolic 110 mm[Hg] Harumi DeFinis [facility] Work Phone: 12-31-2015 14:55-0400 Pulse (Heart Rate) 100 /min Harumi DeFinis [facility] Work Phone: Encounters Encounter Date Encounter Type Care Provider Facility Start: 08-19-2020 End: 08-19-2020 Patient encounter procedure [place] [facility] Start: 07-25-2020 End: 07-25-2020 Patient encounter procedure [place] [facility] Start: 05-08-2016 End: 05-09-2016 Ambulatory CHAD VILLEGAS Facility:[facility] Procedures Date Procedure Procedure Detail Performing Clinician Start: 05-19-2017 End: 05-19-2017 *Hepatic Function Panel Joey Dempsey MD Work Phone: Start: 05-19-2017 End: 05-19-2017 Lipid panel [AGGREGATE] Joey Dempsey MD Work Phone: Start: 11-16-2016 End: 11-17-2016 *Hepatic Function Panel Joey Dempsey MD Work Phone: Start: 11-16-2016 End: 11-16-2016 DENNIS Dempsey MD Work Phone: Start: 11-16-2016 End: 11-16-2016 Follow Up Appt 6 months Joey Dempsey MD Work Phone: Start: 11-16-2016 End: 11-17-2016 Lipid 1996 panel - Serum or Plasma Joey Dempsey MD Work Phone: Start: 11-16-2016 End: 11-17-2016 *Hepatic Function Panel Joey Dempsey MD Work Phone: Start: 11-16-2016 End: 11-16-2016 DENNIS Dempsey MD Work Phone: Start: 11-16-2016 End: 11-16-2016 Follow Up Appt 6 months Joey Dempsey MD Work Phone: Start: 11-16-2016 End: 11-17-2016 Lipid panel [AGGREGATE] Joey Dempsey MD Work Phone: Start: 05-12-2016 End: 05-12-2016 DENNIS Dempsey MD Work Phone: Start: 05-12-2016 End: 05-12-2016 Ecg routine ecg w/least 12 lds w/i&r Joey Dempsey MD Work Phone: Start: 05-12-2016 End: 05-27-2016 Echocardiography Joey Dempsey MD Work Phone: Start: 05-12-2016 End: 05-12-2016 Follow Up Appt 6 months Joey Dempsey MD Work Phone: Start: 05-12-2016 End: 05-13-2016 Referral to computer system specialist Joey Dempsey MD Work Phone: Start: 05-12-2016 End: 05-12-2016 DJN Joey Dempsey MD Work Phone: Start: 05-12-2016 End: 05-27-2016 Echocardiography Joey Dempsey MD Work Phone: Start: 05-12-2016 End: 05-12-2016 Electrocardiogram, complete Joey lynn MD Work Phone: Start: 05-12-2016 End: 05-12-2016 Follow Up Appt 6 months Joey Dempsey MD Work Phone: Start: 05-12-2016 End: 05-13-2016 Referral to computer system specialist Joey Dempsey MD Work Phone: Start: 05-12-2016 Replacement of aortic valve Aortic valve replacement Harkelvin Toscanois Start: 03-03-2016 End: 11-16-2016 *Hepatic Function Panel Joey Dempsey MD Work Phone: Start: 03-03-2016 End: 11-16-2016 Lipid 1996 panel - Serum or Plasma Joey Dempsey MD Work Phone: Start: 03-03-2016 End: 11-16-2016 *Hepatic Function Panel Joey Dempsey MD Work Phone: Start: 03-03-2016 End: 11-16-2016 Lipid panel [AGGREGATE] Joey Dempsey MD Work Phone: Start: 02-25-2016 End: 04-20-2016 DENNIS Dempsey MD Work Phone: Start: 02-25-2016 End: 04-20-2016 Follow Up Appt 2 months Joey Dempsey MD Work Phone: Start: 02-25-2016 End: 02-26-2016 Referral to thoracic surgeon Joey Dempsey MD Work Phone: Start: 02-25-2016 End: 04-20-2016 DENNIS Dempsey MD Work Phone: Start: 02-25-2016 End: 04-20-2016 Follow Up Appt 2 months Joey Dempsey MD Work Phone: Start: 02-25-2016 End: 02-26-2016 Referral to thoracic surgeon Joey Dempsey MD Work Phone: Start: 02-24-2016 End: 02-27-2016 *Hepatic Function Panel Joey Dempsey MD Work Phone: Start: 02-24-2016 End: 02-27-2016 Lipid 1996 panel - Serum or Plasma Joey Dempsey MD Work Phone: Start: 02-24-2016 End: 02-27-2016 *Hepatic Function Panel Joey Dempsey MD Work Phone: Start: 02-24-2016 End: 02-27-2016 Lipid panel [AGGREGATE] Joey Dempsey MD Work Phone: Start: 02-10-2016 End: 02-10-2016 DENNIS Dempsey MD Work Phone: Start: 02-10-2016 End: 02-10-2016 Ecg routine ecg w/least 12 lds w/i&r Joey Dempsey MD Work Phone: Start: 02-10-2016 End: 02-10-2016 Follow Up Appt 2 months Joey Dempsey MD Work Phone: Start: 02-10-2016 End: 02-10-2016 DENNIS Dempsey MD Work Phone: Start: 02-10-2016 End: 02-10-2016 Electrocardiogram, complete Joey lynn MD Work Phone: Start: 02-10-2016 End: 02-10-2016 Follow Up Appt 2 months Joey Dempsey MD Work Phone: Start: 01-29-2016 End: 01-30-2016 Referral to respiratory physician Joey eDmpsey MD Work Phone: Start: 01-29-2016 End: 01-30-2016 Referral to respiratory physician Joey Dempsey MD Work Phone: Start: 01-21-2016 End: 01-21-2016 *BMP Joey Dempsey MD Work Phone: Start: 01-21-2016 End: 01-21-2016 aPTT in Platelet poor plasma by Coagulation assay Joey Dempsey MD Work Phone: Start: 01-21-2016 End: 01-21-2016 CBC W Auto Differential panel - Blood Joey Dempsey MD Work Phone: Start: 01-21-2016 End: 02-18-2016 Chest x-ray Joey Dempsey MD Work Phone: Start: 01-21-2016 End: 01-21-2016 INR in Platelet poor plasma by Coagulation assay Joey Dempsey MD Work Phone: Start: 01-21-2016 End: 01-21-2016 *BMP Joey Dempsey MD Work Phone: Start: 01-21-2016 End: 01-21-2016 aPTT Joey Dempsey MD Work Phone: Start: 01-21-2016 End: 01-21-2016 CBC W Auto Differential panel - Blood Joey Dempsey MD Work Phone: Start: 01-21-2016 End: 02-18-2016 Chest x-ray Joey Dempsey MD Work Phone: Start: 01-21-2016 End: 01-21-2016 Coagulation factor induced.INR assay in platelet poor plasma Joey Dempsey MD Work Phone: Start: 12-31-2015 End: 01-22-2016 *Hepatic Function Panel Joey Dempsey MD Work Phone: Start: 12-31-2015 End: 01-28-2016 DJN Joey Dempsey MD Work Phone: Start: 12-31-2015 End: 01-28-2016 Ecg routine ecg w/least 12 lds w/i&r Joey Dempsey MD Work Phone: Start: 12-31-2015 End: 01-28-2016 Follow Up Appt 1 month Joey Dempsey MD Work Phone: Start: 12-31-2015 End: 02-18-2016 Left & Right Heart Cath Joey Dempsey MD Work Phone: Start: 12-31-2015 End: 01-22-2016 Lipid 1996 panel - Serum or Plasma Joey Dempsey MD Work Phone: Start: 12-31-2015 End: 01-28-2016 Pulmonary Function Test - complete Joey Dempsey MD Work Phone: Start: 12-31-2015 End: 02-18-2016 Transesophageal echocardiogram (MATT) Joey Dempsey MD Work Phone: Start: 12-31-2015 End: 01-22-2016 *Hepatic Function Panel Joey Dempsey MD Work Phone: Start: 12-31-2015 End: 01-28-2016 DJN Joey Dempsey MD Work Phone: Start: 12-31-2015 End: 01-28-2016 Electrocardiogram, complete Joey lynn MD Work Phone: Start: 12-31-2015 End: 01-28-2016 Follow Up Appt 1 month Joey Dempsey MD Work Phone: Start: 12-31-2015 End: 02-18-2016 Left & Right Heart Cath Joey Dempsey MD Work Phone: Start: 12-31-2015 End: 01-22-2016 Lipid panel [AGGREGATE] Joey Dempsey MD Work Phone: Start: 12-31-2015 End: 01-28-2016 Pulmonary Function Test - complete Joey Dempsey MD Work Phone: Start: 12-31-2015 End: 02-18-2016 Transesophageal echocardiogram (MATT) Joey Dempsey MD Work Phone: Plan of Treatment Date Care Activity Detail Author Start: 06-14-2017 End: 06-14-2017 Appointment Appointment [facility] Work Phone: Start: 05-19-2017 End: 11-18-2016 *Hepatic Function Panel *Hepatic Function Panel [facility] Work Phone: Start: 05-19-2017 End: 11-18-2016 Lipid panel [AGGREGATE] *Lipid Profile CC PCP [facility] Work Phone: Start: 05-19-2017 End: 05-19-2017 *Hepatic Function Panel *Hepatic Function Panel [facility] Work Phone: Start: 05-19-2017 End: 05-19-2017 Lipid panel [AGGREGATE] *Lipid Profile CC PCP [facility] Work Phone: Start: 04-14-2017 End: 11-17-2016 Echocardiography Echocardiogram (complete) [facility] Work Phone: Start: 04-14-2017 End: 11-17-2016 Echocardiography Echocardiogram (complete) [facility] Work Phone: Start: 11-16-2016 End: 11-16-2016 Appointment Appointment [facility] Work Phone: Start: 11-16-2016 End: 11-17-2016 *Hepatic Function Panel *Hepatic Function Panel [facility] Work Phone: Start: 11-16-2016 End: 11-16-2016 Cardiac Rehab Cardiac Re[facility], [address] [place], [address] [facility] Work Phone: Start: 11-16-2016 End: 11-16-2016 DENNIS COLLINS [facility] Work Phone: Start: 11-16-2016 End: 11-16-2016 Follow Up Appt 6 months Follow Up Appt 6 months [facility] Work Phone: Start: 11-16-2016 End: 11-17-2016 Lipid panel [AGGREGATE] *Lipid Profile CC PCP [facility] Work Phone: Start: 11-16-2016 End: 11-17-2016 *Hepatic Function Panel *Hepatic Function Panel [email or web address] Work Phone: Start: 11-16-2016 End: 11-16-2016 Cardiac Rehab Cardiac Rehab [facility], [address] [place], [address] [facility] [employer] Work Phone: Start: 11-16-2016 End: 11-16-2016 DJN GALINDOKee [facility] [employer] Work Phone: Start: 11-16-2016 End: 11-16-2016 Follow Up Appt 6 months Follow Up Appt 6 months [email or web address] Work Phone: Start: 11-16-2016 End: 11-17-2016 Lipid panel [AGGREGATE] *Lipid Profile CC PCP [facility] [employer] Work Phone: Start: 05-12-2016 End: 05-18-2016 Cardiac Rehab Cardiac Rehab [address] [place], [address] [facility] [employer] Work Phone: Start: 05-12-2016 End: 05-12-2016 DJKee DENNIS [facility] [employer] Work Phone: Start: 05-12-2016 End: 05-12-2016 Ecg routine ecg w/least 12 lds w/i&r EKG (In office) [facility] [employer] Work Phone: Start: 05-12-2016 End: 05-12-2016 Echocardiography Echocardiogram (complete) [facility] [employer] Work Phone: Start: 05-12-2016 End: 05-12-2016 Follow Up Appt 6 months Follow Up Appt 6 months [email or web address] Work Phone: Start: 05-12-2016 End: 05-18-2016 Cardiac Rehab Card[facility] Rehab [address] [place], [address] [facility] [employer] Work Phone: Start: 05-12-2016 End: 05-12-2016 DJKee DENNIS [facility] Work Phone: Start: 05-12-2016 End: 05-12-2016 Echocardiography Echocardiogram (complete) [facility] Work Phone: Start: 05-12-2016 End: 05-12-2016 Electrocardiogram, complete EKG (In office) [facility] Work Phone: Start: 05-12-2016 End: 05-12-2016 Follow Up Appt 6 months Follow Up Appt 6 months [facility] Work Phone: Start: 03-03-2016 End: 11-16-2016 *Hepatic Function Panel *Hepatic Function Panel [facility] Work Phone: Start: 03-03-2016 End: 11-16-2016 Lipid panel [AGGREGATE] *Lipid Profile CC PCP [facility] Work Phone: Start: 03-03-2016 End: 11-16-2016 *Hepatic Function Panel *Hepatic Function Panel [facility] Work Phone: Start: 03-03-2016 End: 11-16-2016 Lipid panel [AGGREGATE] *Lipid Profile CC PCP [facility] Work Phone: Start: 02-25-2016 End: 04-20-2016 GALINDON DENNIS [facility] Work Phone: Start: 02-25-2016 End: 04-20-2016 Follow Up Appt 2 months Follow Up Appt 2 months [facility] Work Phone: Start: 02-25-2016 End: 05-18-2016 Thoracic Surgery Referral Thoracic Surgery Referral Cosme Leon MD, [address], [place], [address] [facility] Work Phone: Start: 02-25-2016 End: 04-20-2016 DENNIS COLLINS [facility] Work Phone: Start: 02-25-2016 End: 04-20-2016 Follow Up Appt 2 months Follow Up Appt 2 months [facility] Work Phone: Start: 02-25-2016 End: 05-18-2016 Thoracic Surgery Referral Thoracic Surgery Referral Cosme Leon MD, [address], [place], [address] [facility] Work Phone: Start: 02-24-2016 End: 02-27-2016 *Hepatic Function Panel *Hepatic Function Panel [facility] Work Phone: Start: 02-24-2016 End: 02-27-2016 Lipid panel [AGGREGATE] *Lipid Profile CC PCP [facility] Work Phone: Start: 02-24-2016 End: 02-27-2016 *Hepatic Function Panel *Hepatic Function Panel [facility] Work Phone: Start: 02-24-2016 End: 02-27-2016 Lipid panel [AGGREGATE] *Lipid Profile CC PCP [facility] Work Phone: Start: 02-21-2016 End: 02-21-2016 DMB DMB [facility] Work Phone: Start: 02-21-2016 End: 02-21-2016 Follow Up Appt 1 month Follow Up Appt 1 month [facility] Work Phone: Start: 02-21-2016 End: 02-21-2016 Pulmonary stress test/simple Pulmonary stress testing; simple (eg, 6-minute walk) [facility] Work Phone: Start: 02-21-2016 End: 02-21-2016 DMB DMB [facility] Work Phone: Start: 02-21-2016 End: 02-21-2016 Follow Up Appt 1 month Follow Up Appt 1 month [facility] Work Phone: Start: 02-21-2016 End: 02-21-2016 Pulmonary stress test/simple Pulmonary stress testing; simple (eg, 6-minute walk) [facility] Work Phone: Start: 02-10-2016 End: 02-10-2016 DENNIS COLLINS [facility] Work Phone: Start: 02-10-2016 End: 02-10-2016 Ecg routine ecg w/least 12 lds w/i&r EKG (In office) [facility] Work Phone: Start: 02-10-2016 End: 02-10-2016 Follow Up Appt 2 months Follow Up Appt 2 months [email or web address] Work Phone: Start: 02-10-2016 End: 02-10-2016 DJN DJN [facility] [employer] Work Phone: Start: 02-10-2016 End: 02-10-2016 Electrocardiogram, complete EKG (In office) [email or web address] Work Phone: Start: 02-10-2016 End: 02-10-2016 Follow Up Appt 2 months Follow Up Appt 2 months [email or web address] Work Phone: Start: 01-29-2016 End: 01-29-2016 Pulmonary Referral Pulmonary Referral Marcial Min[facility], [facility], [address], [place], [address] [facility] [employer] Work Phone: Start: 01-29-2016 End: 01-29-2016 Pulmonary Referral Pulmonary Referral Marcial Min[facility], [facility], [address], [place], [address] [facility] [employer] Work Phone: Start: 01-21-2016 End: 01-21-2016 *BMP *BMP [facility] [employer] Work Phone: Start: 01-21-2016 End: 01-21-2016 aPTT *PTT-Partial Thromboplastin Time [facility] Work Phone: Start: 01-21-2016 End: 01-21-2016 CBC W Auto Differential panel - Blood *CBC without Diff [facility] [employer] Work Phone: Start: 01-21-2016 End: 02-18-2016 Chest x-ray X-Ray, Chest, PA & Lateral [facility] [employer] Work Phone: Start: 01-21-2016 End: 01-21-2016 INR Coag RelTime (PPP) *PT/INR [facility] Work Phone: Start: 01-21-2016 End: 01-21-2016 *BMP *BMP [facility] [employer] Work Phone: Start: 01-21-2016 End: 01-21-2016 aPTT *PTT-Partial Thromboplastin Time [facility] Work Phone: Start: 01-21-2016 End: 01-21-2016 aPTT Coag time (PPP) *PTT-Partial Thromboplastin Time [facility] [employer] Work Phone: Start: 01-21-2016 End: 01-21-2016 CBC W Auto Differential panel - Blood *CBC without Diff [facility] [employer] Work Phone: Start: 01-21-2016 End: 02-18-2016 Chest x-ray X-Ray, Chest, PA & Lateral [facility] [employer] Work Phone: Start: 01-21-2016 End: 01-21-2016 Coagulation factor induced.INR assay in platelet poor plasma *PT/INR [facility] [employer] Work Phone: Start: 12-31-2015 End: 01-22-2016 *Hepatic Function Panel *Hepatic Function Panel [email or web address] Work Phone: Start: 12-31-2015 End: 01-28-2016 DJN DJN [facility] [employer] Work Phone: Start: 12-31-2015 End: 01-28-2016 Ecg routine ecg w/least 12 lds w/i&r EKG (In office) [facility] [employer] Work Phone: Start: 12-31-2015 End: 01-28-2016 Follow Up Appt 1 month Follow Up Appt 1 month [facility] [employer] Work Phone: Start: 12-31-2015 End: 01-22-2016 Left & Right Heart Cath Left & Right Heart Cath [email or web address] Work Phone: Start: 12-31-2015 End: 01-22-2016 Lipid panel [AGGREGATE] *Lipid Profile CC PCP [facility] Work Phone: Start: 12-31-2015 End: 12-31-2015 Pulmonary Function Test - complete Pulmonary Function Test - complete [facility] Work Phone: Start: 12-31-2015 End: 01-27-2016 Transesophageal echocardiogram (MATT) Transesophageal echocardiogram (MATT) [facility] Work Phone: Start: 12-31-2015 End: 01-22-2016 *Hepatic Function Panel *Hepatic Function Panel [facility] Work Phone: Start: 12-31-2015 End: 01-28-2016 DJN DJN [facility] Work Phone: Start: 12-31-2015 End: 01-28-2016 Electrocardiogram, complete EKG (In office) [facility] Work Phone: Start: 12-31-2015 End: 01-28-2016 Follow Up Appt 1 month Follow Up Appt 1 month [facility] Work Phone: Start: 12-31-2015 End: 01-22-2016 Left & Right Heart Cath Left & Right Heart Cath [facility] Work Phone: Start: 12-31-2015 End: 01-22-2016 Lipid panel [AGGREGATE] *Lipid Profile CC PCP [facility] Work Phone: Start: 12-31-2015 End: 12-31-2015 Pulmonary Function Test - complete Pulmonary Function Test - complete [facility] Work Phone: Start: 12-31-2015 End: 01-27-2016 Transesophageal echocardiogram (MATT) Transesophageal echocardiogram (MATT) [facility] Work Phone: Patient Education [facility] Work Phone: Payers Date Payer Category Payer Policy ID Unknown [id number] Summary Purpose Family History No Family History Records FoundNo Family History Records Found Advance Directives No Advanced Directives Records FoundNo Advanced Directives Records Found Additional Source Comments (unrecognized sect ion and content) No Status Records FoundNo Status Records Found INFORMATION SOURCE (unrecogn ized section and content) DATE CREATED AUTHOR 11/24/2017 [facility] DATE CREATED AUTHOR AUTHOR'S JESSEE LOPEZ 08/29/2020 [facility] FOR RECORDS PERTAINING TO PATIENTS WHO ARE OR HAVE BEEN ENROLLED IN A CHEMICAL DEPENDENCY/SUBSTANCEABUSE PROGRAM, SOME INFORMATION MAY BE OMITTED. This clinical summary was aggregated from multiple sources. Caution should be exercised in using it in the provision of clinical care. This summary normalizes information from multiple sources, and as a consequence, information in this document may materially change the coding, format and clinical context of patient data. In addition, data may be omitted in some cases. CLINICAL DECISIONS SHOULD BE BASED ON THE PRIMARY CLINICAL RECORDS. [employer] provides no warranty or guarantee of the accuracy or completeness of information in this document.
== END | disposition home or self-care (01) ==
LOC: CVS 09:29
PROVIDERS: PCP Family Medicine; Referring Provider Internal Medicine Cardiovascular Disease; Visit Provider Internal Medicine Cardiovascular Disease
DX: Z95.3 Presence of xenogenic heart valve (principal)
CPT/HCPCS: 93306; Q9957; A4216; C8929

== ENCOUNTER → 2024-05-12 | Outpatient (CLI) | payer MEDICARE, OTHER, SELFPAY ==
--- NOTE | 2024-05-12 08:10 | LES_PTH ---
PATIENT: FENG PARK LOC: [facility] U#:[id number] AGE/SX: 68/M ROOM: RE05/12/[address]: Sasha España : 1955 BED: DIS: 05/12/2024 SPEC #: [id number] RECD: 05/12/24 09:55 STATUS: DUGLAS INDRA #: [id number] WONG: 05/12/24 08:[address]: Sasha España DEPT: SURGICAL PATHOLOGY RECD BY: Pam Wynn ENTERED: 05/12/24 12:08 SP TYPE: Lesion OTHR DR: Dr. Everett Antonio MD Tissues: Skin of arm Procedures: Surgery Specimen Level IV HEADER OPERATION: Excision PRE-OP DIAGNOSIS: Squamous cell carcinoma TISSUE SUBMITTED: Left upper arm MICROSCOPIC DIAGNOSIS Left upper arm lesion, excisional biopsy: Squamous cell carcinoma insitu, completely excised. Mild actinic keratosis and solar elastosis. SANTI. 05/15/2024 MICROSCOPIC DESCRIPTION Slides are reviewed. GROSS DESCRIPTION Received in fixative is one container labeled with the patient's name and designated Left upper arm. The specimen consists of a skin ellipse measuring 1.5cm in length, 1.0cm in greatest width, and excised to a depth of 5.0mm. Definitive a surface lesion is not grossly identified. Surgical margins are inked black. The specimen is serially sectioned and submitted totally in one cassette with the two smallest triangular fragments representing the end of margins for a total of five fragments in one cassette. HAKEEM. 05/12/2024 TC:0 CPT:28023
[2024-05-12 10:49] LABS: PSA,Total- Diagnostic < 0.01 ng/mL (0.0-4.0)
== END | disposition home or self-care (01) ==
PROVIDERS: PCP Family Medicine; Visit Provider Nurse Practitioner
DX: C61 Malignant neoplasm of prostate (principal); D04.62 Carcinoma in situ of skin of left upper limb, including shoulder; L57.8 Other skin changes due to chronic exposure to nonionizing radiation
CPT/HCPCS: 36415; 84153; 88305

== ENCOUNTER → 2024-05-16 | Outpatient (CLI) | payer MEDICARE, OTHER, SELFPAY ==
--- NOTE | 2024-05-16 07:37 | ART_ITS ---
Reason For Study: PVD Procedure A bilateral lower extremity continuous wave Doppler with analog waveform analysis,segmental pressures,and ankle brachial indexes with exercise. Left Segmental Pressures Left brachial= 159mmHg. Left posterior tibial artery = 175mmHg. Left dorsalis pedis artery = 177mmHg. Left digit = 70 mmHg. The left posterior tibial artery waveforms are triphasic. The left dorsalis pedis waveforms are triphasic. Right Segmental Pressures Right brachial= 156mmHg. Right posterior tibial artery = 180mmHg. Right dorsalis pedis artery = 177mmHg. Right digit = 80 mmHg. The right posterior tibial artery waveforms are triphasic. The right dorsalis pedis waveforms are triphasic. Indices The right ankle brachial index by the posterior tibial artery is 1.13. The right ankle brachial index by the dorsalis pedis is 1.11. The right digital-brachial index is 0.50. The right ankle brachial index by the posterior tibial artery post exercise is 1.17. The left ankle brachial index by the posterior tibial artery is 1.10. The left ankle brachial index by the dorsalis pedis is 1.11. The left digital-brachial index is 0.44. The left dorsalis pedis index post exercise is 1.13. VL/Lower Ext Art Exam w/ Exercise Interpretation Summary Right EDE 1.13, normal. Doppler/PVR waveforms of the right leg normal at rest. TBI diminished, pedal/digit disease vs spasm. Right lower extremity exhibits normal response to exercise. Left EDE 1.11, normal. Doppler/PVR waveforms of the left leg normal at rest. TB I diminished, pedal/digit disease vs spasm. Left lower extremity exhibits normal response to exercise. Ordering Physician: Everett Vickers Referring Physician: EVERETT VICKERS MD Performed By: Clifford Toussaint RVT
--- NOTE | 2024-05-16 07:39 | CT_ITS ---
STUDY: LOW DOSE CT LUNG CANCER SCREENING REASON FOR EXAM: Male, 68 years old. former smoker. 30+ pack year.. Patient quit 10 years ago. RADIATION DOSAGE (If Supplied By Facility): CTDIvol = ( 3.02 ) mGy, DLP = ( 114.75 ) mGycm TECHNIQUE: No contrast was administered. Low dose technique was utilized (average mAS-38 and kVp 120). 1.25 mm axial source images with a slice interval of 1.25-mm were reconstructed in lung windows. 2.5 mm axial source images with a slice interval of 2.5-mm were reconstructed in lung windows. 5.0 mm axial source images with a slice interval of 5.0-mm were reconstructed in soft tissue windows. COMPARISON: Comparison is made with prior examination dated March 26, 2023. NODULES: Stable scattered calcified granulomas. Stable 2 mm pleural-based nodule in the right middle lobe. Stable 4 mm nodule in the right middle lobe as seen on axial image #153. Emphysema: Emphysematous changes and scarring in both lungs. Endobronchial lesion: None Aorta: Atherosclerotic plaque formation of the aortic arch. CORONARY ARTERIES: Coronary artery calcification is seen. Heart: Prior midline sternotomy and the aortic valve replacement. Pulmonary artery: Unremarkable Mediastinal nodes: Unremarkable Other chest and abdominal findings: CT/Low Dose CT Lung Screening IMPRESSION: Lung-RADS category 2 - Continue annual screening with LDCT in 12 months. IMPORTANT NOTES FOR USE: ACR Lung-RADS Version 1.1 Assessment Categories Release Date: 2018 Category: Coded 0-4 bases on nodule(s) with highest degree of suspicion. Negative screen is defined as categories 1 and 2; a positive screen is defined as categories 3 and 4. Category 3 and 4A nodules that are unchanged on interval CT should be coded as category 2, and individuals returned to screening in 12 months. Category 4X: Category 3 or 4 nodules with additional imaging findings that increase the suspicion of lung cancer, such as spiculation, GGN that doubles in size in 1 year, enlarged lymph notes, etc. Category Modifiers: S (significant finding unrelated to lung cancer) Electronically Signed: Juan David Clark MD at 15:03 EST ,
== END | disposition home or self-care (01) ==
PROVIDERS: PCP Family Medicine; Referring Provider Family Medicine; Visit Provider Family Medicine
DX: I73.9 Peripheral vascular disease, unspecified (principal); Z12.2 Encounter for screening for malignant neoplasm of respiratory organs; Z87.891 Personal history of nicotine dependence
CPT/HCPCS: 71271; 93924

== ENCOUNTER → 2024-12-04 | Outpatient (CLI) | payer MEDICARE, OTHER, SELFPAY ==
[2024-12-04 15:38] LABS: Hematocrit 46.3 % (40-54); Hemoglobin 15.4 g/dL (13.0-16.5); Mean Corp Hgb Conc 33.3 g/dL (32-36); Mean Corpuscular Volume 93.7 fL (80-94); Mean Platelet Vol. 9.7 fl (6.2-12.0); Platelet Count 200 K/mm3 (150-450); RBC Distribution Width CV 14.0 % (11.6-14.6); RBC Distribution Width SD 48.4 fl (35.1-43.9); Red Blood Count 4.94 M/mm3 (4.6-6.2); White Blood Count 5.4 K/mm3 (4.4-11.0)
[2024-12-04 16:02] LABS: Pro- Brain NATRIURETIC PEPTIDE 384 pg/mL (<=900)
== END | disposition home or self-care (01) ==
LOC: MFPLAB 12:03
PROVIDERS: PCP Family Medicine; Referring Provider Family Medicine; Visit Provider Family Medicine
DX: R06.02 Shortness of breath (principal); I35.9 Nonrheumatic aortic valve disorder, unspecified
CPT/HCPCS: 83880; 85027

== ENCOUNTER → 2025-01-02 | Outpatient (CLI) | payer MEDICARE, OTHER, SELFPAY | END | disposition home or self-care (01) | LOC: PSN 08:11 | PROVIDERS: PCP Family Medicine; Referring Provider Family Medicine; Visit Provider Family Medicine | DX: R06.02 Shortness of breath (principal) | CPT/HCPCS: 94060; 94726; 94729 ==

== ENCOUNTER → 2025-02-09 | Outpatient (CLI) | payer MEDICARE, OTHER, SELFPAY ==
--- OUTSIDE RECORDS SUMMARY | 2025-02-09 06:35 | XMS RPT_ITS | CCD ---
Author Organization [facility] Care Team Providers Care Pest Control Applicator Name Role Phone DeFinis, Harumi Y Unavailable Unavailable Scherer, Rosaline Unavailable Unavailable Cristy RN, Che A Unavailable Unavailable Cristy RN, Ceh A Unavailable Unavailable PARETE, CHAD Unavailable Unavailable PARETE, HCAD Unavailable Unavailable NO REFERRING Unavailable Unavailable DeFinis, Harumi Y Unavailable Unavailable JOSE R Hernandez, Gladys Sinclair Unavailable Unavailabl e Julius, Harumi Y Unavailable Unavailable ONDINA, GLENN Price Attending Unavailable ONDINA, GLENN Price Primary Care Unavailable ONDINA, GLENN Price Admitting Unavailable ONDINA, GLENN Price Attending Unavailable ONDINA, GLENN Dee Primary Care Unavailable ONDINA, GLENN Price Admitting Unavailable Dr. Edgar Antonio Primary Care Provider Dr. Edgar Antonio Referring Provider Dr. Db Pittman Attending Provider Dr. Edgar Antonio Primary Care Provider Dr. Edgar Antonio Referring Provider Dr. Db Pittman Attending Provider [phone] Edgar Antonio Primary Care Provider [phone] Dr. Db Pittman Attending Provider [phone] Edgar Antonio Primary Care Provider Dr. Edgar Antonio Referring Provider YAYA Rojas Attending Provider Dr. Edgar Antonio Primary Care Provider Dr. Edgar Antonio Referring Provider YAYA Rojas Attending Provider Dr. Edgar Antonio Primary Care Provider Dr. Edgar Antonio Referring Provider YAYA Rojas Attending Provider Marisela, Dr. Hernández Primary Care Provider [phone] Dr. Edgar Antonio Referring Provider YAYA Rojas Attending Provider Marisela LEGER, Dr. Floyd Primary Care Provider Marisela LEGER, Dr. Floyd Attending Provider Marisela LEGER, Dr. Floyd Referring Provider [phone] Tom Antonio Attending Unavailable Ranney, Christfrancheska Referring Unavailable Ranney, Christopher Primary Care Unavailable Rancarmelo Christperfectoer Attending Unavailable Ranney, Christopher Primary Care Unavailable Ranney, Christopher Referring Unavailable Ranney, Christopher Primary Care Unavailable Ranney, Christopher Referring Unavailable RanneyWoner Attending Unavailable Ranney, Christopher Referring Unavailable Jl Sneed Attending Unavailable Ranney, Christopher Primary Care Unavailable Lucas Mcdermott Attending Unavailable Ranney, Christopher Primary Care Unavailable Ranney, Christopher Referring Unavailable Gama Sohail Attending Unavailable Ranney, Christopher Primary Care Unavailable Ranney, Christopher Referring Unavailable Renetta, David Attending Unavailable Ranney, Christopher Primary Care Unavailable Femiabrsuma Sohail Referring Unavailable Blane Matthew Attending Unavailable Ranney, Christopher Primary Care Unavailable Renetta, [place] Attending Unavailable Ranney, Christopher Primary Care Unavailable Yulissa Lynn Attending Unavailable Ranney, Christopher Primary Care Unavailable Femiabrsuma Sohail Consulting Unavailable Femiabretta Sohail Admitting Unavailable Calabretta, Sohail Referring Unavailable Calabretta, Sohail Attending Unavailable Ranney, Christopher Primary Care Unavailable Calabretta, Sohail Consulting Unavailable Calabretta, Sohail Referring Unavailable Calabretta, Sohail Attending Unavailable Ranney, Christopher Primary Care Unavailable Renetta, David Referring Unavailable Renetta, [place] Attending Unavailable Ranney, Christopher Attending Unavailable Ranney, Christopher Primary Care Unavailable oTm Antonio Referring Unavailable Tom Antonio Primary Care Unavailable Sasha España Attending Unavailable Tom Antonio Attending Unavailable Tom Antonio Referring Unavailable Tom Antonio Primary Care Unavailable Tom Antonio Primary Care Unavailable Sohail Malloy Admitting Unavailable Sohail Malloy Referring Unavailable Sohail Malloy Attending Unavailable Allergies Allergy Classification Reported Allergen(s) Allergy Type Date of Onset Reaction(s) Facility (19 sources) Ciprofloxacin Drug Allergy 1 Itching [facility] (20 sources) Sulfonamides (Antibiotic); Translations: [Sulfa (Sulfonamide Antibiotics)] Propensity to adverse reactions 1 Rash [facility] (1 source) Ciprofloxacin Drug Allergy 4 [facility] Repository Medications Current Medications Medication Drug Class(es) Dates Sig (Normalized) Sig (Original) aspirin 81 mg delayed release oral tablet (20 sources) Platelet Aggregation Inhibitor, Nonsteroidal Anti-inflammatory Drug Start: 12-27-2015 take 1 tablet by mouth once daily Aspirin 81 MG tablet,delayed release (DR/EC) Active 81 mg PO DAILY February 12, 2016 12:00am Start: 12-27-2015 take 1 tablet by arnav th once daily ASPIRIN 81 MG TABS One tablet by mouth daily ASPIRIN [id number] Gladys Hernandez RN Start: 12-27-2015 take 1 tablet by arnav th once daily ADULT ASPIRIN EC LOW STRENGTH 81 MG TBEC One tablet by mouth daily ASPIRIN [id number] Slava [place] dicyclomine hydrochloride 10 mg oral capsule (2 sources) Anticholinergic Start: 03-16-2024 take 1 capsule by mouth before mealtime as needed Dicyclomine 10 mg capsule Active 10 mg PO before meals as needed March 16, 2024 12:00am fluticasone propionate 0.05 mg/actuat metered dose nasal spray (20 sources) Corticosteroid Start: 12-27-2017 Fluticasone Propionate (Allergy Relief (Fluticasone)) 50 mcg/actuation spray,suspension Active 1 NMA INTRANASAL daily as needed for Nasal Congestion December 27, 2017 12:00am Start: 12-27-2017 Fluticasone Pr opionate (Allergy Relief (Fluticasone)) 50 mcg/actuation spray,suspension Active 1 SPRAY INTRANASAL daily December 26, 2017 11:00pm Start: 05-28-2016 End: 06-11-2017 Fluticasone Propionate 1 SPR AY spray,suspension Discontinued 1 NMA NASAL TWICE A DAY May 28, 2016 1:00am June 11, 2017 6:42pm Start: 05-28-2016 End: 06-11-2017 Fluticasone Propionate Disco ntinued 1 SPRAY NASAL TWICE A DAY May 28, 2016 12:00am June 11, 2017 5:42pm Start: 02-21-2016 End: 11-16-2016 take 1 spray(s) nasal route once daily FLONASE ALLERGY RELIEF 50 MCG/ACT SUSP 1 spray each nostril daily FLUTICASONE PROPIONATE [id number] Lucas Mcdermott DO Start: 02-21-2016 take 1 spray(s) nasa l route once daily FLONASE ALLERGY RELIEF 50 MCG/ACT SUSP 1 spray each nostril daily FLUTICASONE PROPIONATE [id number] Lucas Mcdermott DO Start: 02-21-2016 End: 11-16-2016 take 1 spray(s) nasal route once daily FLONASE ALLERGY RELIEF 50 MCG/ACT SUSP 1 spray each nostril daily FLUTICASONE PROPIONATE [id number] Joey Dempsey MD levothyroxine sodium 0.1 mg oral tablet (20 sources) l-Thyroxine Start: 03-16-2024 take 1 tablet by mouth once daily Levothyroxine 100 mcg tablet Active 100 ug PO daily March 16, 2024 12:00am Start: 10-07-2020 End: 03-16-2024 take 1 tablet by mouth once daily Levothyroxine 50 mcg tablet Discontinued 50 ug PO DAILY October 07, 2020 12:00am March 16, 2024 9:12am losartan potassium 25 mg oral tablet (20 sources) Angiotensin 2 Receptor Marco Antonio Start: 06-11-2017 End: 06-14-2017 take 1 tablet by mouth once daily Losartan 25 mg tablet Active 25 mg PO daily 30 June 14, 2017 4:45pm Start: 05-28-2016 End: 06-11-2017 Losartan 25 MG tablet Discon tinued 20 mg PO DAILY May 28, 2016 1:00am June 11, 2017 6:40pm Start: 05-28-2016 End: 06-11-2017 take 20 mg by mouth once daily Losartan Discontinued 2 0 MG PO DAILY May 28, 2016 12:00am June 11, 2017 5:40pm Start: 02-18-2016 take 1 tablet by arnav th once daily LOSARTAN POTASSIUM 25 MG TABS One tablet by mouth daily LOSARTAN POTASSIUM [id number] Joey Dempsey MD Completed/Discontinued Medications Medication Drug Class(es) Dates Sig (Normalized) Sig (Original) acetaminophen 32 mg/ml oral solution (2 sources) Start: 02-24-2024 End: 03-01-2024 Acetaminophen 650 mg/20.3 mL Solution Discontinued 650 mg PO EVERY 4 HOURS NEEDED as needed for Pain 1-10 Or Fever 0 0 February 24, 2024 12:00am March 01, 2024 9:38am acetaminophen 325 mg / HYDROcodone bitartrate 5 mg oral tablet (19 sources) Opioid Agonist Start: 06-19-2020 End: 06-26-2020 Hydrocodone-Acetamin ophen 1 TABLET tablet Discontinued 1 {tbl} PO EVERY 4 HOURS NEEDED as needed for Pain 14 7 0 June 19, 2020 June 25, 2020 1:00am June 26, 2020 1:03am Malignant neoplasm of prostate Start: 06-19-2020 End: 06-26-2020 take 1 tablet by mouth every four hours as needed Hydrocodone-Acetaminophen Discontinued 1 TABLET PO EVERY 4 HOURS NEEDED 14 7 June 19, 2020 June 26, 2020 12:03am [id number] 200 actuat albuterol 0.09 mg/actuat metered dose inhaler (20 sources) beta2-Adrenergic Agonist Start: 02-12-2016 End: 12-27-2017 Albuterol Sulfate 1 PUFF inhaler Discontinued 1 - 2 NMA INHALATION EVERY 6 HOURS NEEDED as needed for Wheezing February 12, 2016 12:00am December 27, 2017 3:23pm Start: 02-12-2016 End: 12-27-2017 take 1 puff(s) by inhalation every six hours as needed Albuterol Sulfate Discontinued 1 - 2 PUFF INHALATION EVERY 6 HOURS NEEDED February 11, 2016 11:00pm December 27, 2017 2:23pm Start: 12-27-2015 PROAIR HFA 108 (90 Base) MCG/ACT AERS as directed as needed ALBUTEROL SULFATE [id number] Joey Dempsey MD Start: 12-27-2015 PROAIR HFA 108 (90 Base) MCG/ACT AERS as directed ALBUTEROL SULFATE [id number] Gladys Hernandez RN Start: 12-27-2015 End: 05-12-2016 PROAIR HFA 108 (90 Base) MCG /ACT AERS as directed as needed ALBUTEROL SULFATE [id number] Joey Dempsey MD Start: 12-27-2015 End: 05-12-2016 PROAIR HFA 108 (90 Base) MCG /ACT AERS as directed as needed ALBUTEROL SULFATE [id number] Joey Dempsey MD Start: 12-27-2015 End: 05-12-2016 PROAIR HFA 108 (90 Base) MCG /ACT AERS as directed as needed ALBUTEROL SULFATE [id number] Joey Dempsey MD Start: 12-27-2015 PROAIR HFA 108 (90 Base) MCG/ACT AERS as directed as needed ALBUTEROL SULFATE [id number] Joey Dempsey MD Start: 12-27-2015 PROAIR HFA 108 (90 Base) MCG/ACT AERS as directed ALBUTEROL SULFATE [id number] Gladys Hernandez RN amiodarone hydrochloride 200 mg oral tablet (14 sources) Antiarrhythmic Start: 05-12-2016 End: 05-12-2016 take 1 tablet by mouth once daily AMIODARONE HCL 200 MG TABS One tablet by mouth daily AMIODARONE HCL [id number] Joey Dempsey MD amoxicillin 875 mg / clavulanate 125 mg oral tablet (20 sources) Penicillin-class Antibacterial Start: 06-30-2024 End: 07-10-2024 Amoxicillin-Pot Clavulanate 875-125 mg tablet Discontinued 1 {tbl} PO Q12H 20 10 0 June 30, 2024 1:00am July 09, 2024 1:00am July 10, 2024 1:10am Acute sinusitis, unspecified Start: 03-29-2020 End: 04-08-2020 Amoxicillin-Pot Clavulanate (Augmentin) 875-125 mg tablet Discontinued 1 {tbl} PO Q12H March 29, 2020 12:00am April 07, 2020 1:00am April 08, 2020 1:02am Acute sinusitis, unspecified ciprofloxacin 500 mg oral tablet (19 sources) Quinolone Antimicrobial Start: 06-19-2020 End: 10-07-2020 take 1 tablet by mouth twice daily Ciprofloxacin Hcl 500 MG tablet Discontinued 500 mg PO TWICE A DAY June 19, 2020 1:00am October 07, 2020 9:36am docusate sodium 100 mg oral capsule (19 sources) Start: 06-19-2020 End: 10-07-2020 take 1 capsule by mouth once daily Docusate Sodium 100 MG capsule Discontinued 100 mg PO DAILY June 19, 2020 1:00am October 07, 2020 9:36am 24 hr etodolac 400 mg extended release oral tablet (20 sources) Nonsteroidal Anti-inflammatory Drug Start: 02-12-2016 End: 06-11-2017 take 1 tablet by mouth every twenty-four hours as needed for pain Etodolac 400 MG tablet extended release 24 hr Discontinued 400 mg PO NEEDED as needed for Pain February 12, 2016 12:00am June 11, 2017 6:43pm Start: 12-27-2015 End: 05-12-2016 ETODOLAC 400 MG TABS As need ed ETODOLAC [id number] Joey Dempsey MD fexofenadine hydrochloride 180 mg oral tablet (20 sources) Histamine-1 Receptor Antagonist Start: 12-27-2015 End: 05-12-2016 take 1 tablet by mouth once daily VERONICA 180 MG TABS One tablet by mouth daily FEXOFENADINE HCL Gladys Hernandez RN 24 hr fexofenadine hydrochloride 180 mg / pseudoephedrine hydrochloride 240 mg extended release oral tablet (19 sources) alpha-Adrenergic Agonist, Histamine-1 Receptor Antagonist Start: 02-12-2016 End: 06-11-2017 take 1 tablet by mouth every twenty-four hours Fexofenadine-Pseud oephedrine 1 EACH tablet extended release 24 hr Discontinued 1 NMA PO DAILY February 12, 2016 12:00am June 11, 2017 6:42pm Start: 02-12-2016 End: 06-11-2017 Fexofenadine-Pseudoephedrine Discontinued 1 EACH PO DAILY February 11, 2016 11:00pm June 11, 2017 5:42pm hydroCHLOROthiazide 12.5 mg oral capsule (20 sources) Thiazide Diuretic Start: 06-11-2017 End: 06-14-2017 take 1 capsule by mouth once daily Hydrochlorothiazide 12.5 mg capsule Discontinued 12.5 mg PO daily June 11, 2017 1:00am June 14, 2017 4:45pm Start: 05-28-2016 End: 06-11-2017 Hydrochlorothiazide 25 MG ta blet Discontinued 12.5 mg PO DAILY May 28, 2016 1:00am June 11, 2017 6:40pm Start: 05-28-2016 End: 06-11-2017 take 12.5 mg by mouth once daily Hydrochlorothiazide Discontinued 12.5 MG PO DAILY May 28, 2016 12:00am June 11, 2017 5:40pm Start: 02-18-2016 take 1 tablet by arnav th once daily HYDROCHLOROTHIAZIDE 12.5 MG TABS One tablet by mouth daily HYDROCHLOROTHIAZIDE [id number] Joey Dempsey MD hydroCHLOROthiazide 12.5 mg / losartan potassium 50 mg oral tablet (14 sources) Thiazide Diuretic, Angiotensin 2 Receptor Marco Antonio Start: 02-12-2016 End: 02-18-2016 take 1 tablet by mouth once daily HYZAAR 50-12.5 MG TABS One tablet by mouth daily LOSARTAN POTASSIUM-HCTZ [id number] Joey Dempsey MD Start: 02-12-2016 End: 02-18-2016 take 1 tablet by mouth once daily HYZAAR 50-12.5 MG TABS One tablet by mouth daily LOSARTAN POTASSIUM-HCTZ [id number] Valorie Mahajan RN Start: 02-12-2016 take 1 tablet by arnav th once daily HYZAAR 50-12.5 MG TABS One tablet by mouth daily LOSARTAN POTASSIUM-HCTZ [id number] Joey Dempsey MD loratadine 10 mg oral tablet (19 sources) Start: 02-02-2019 End: 08-03-2019 take 1 tablet by mouth once daily Loratadine (Allergy Relief (Loratadine)) 10 mg tablet Discontinued 10 mg PO DAILY February 02, 2019 12:00am August 03, 2019 2:40pm metoprolol tartrate 25 mg oral tablet (20 sources) beta-Adrenergic Marco Antonio Start: 05-12-2016 End: 06-11-2017 take 1 tablet by mouth twice daily Metoprolol Tartrate 25 MG tablet Discontinued 25 mg PO TWICE A DAY May 28, 2016 1:00am June 11, 2017 6:41pm montelukast 10 mg oral tablet (19 sources) Leukotriene Receptor Antagonist Start: 08-03-2019 End: 07-07-2022 take 1 tablet by mouth once daily Montelukast 10 mg tablet Discontinued 10 mg PO DAILY August 03, 2019 1:00am July 07, 2022 11:34am pantoprazole 40 mg delayed release oral tablet (2 sources) Proton Pump Inhibitor Start: 01-25-2024 End: 03-16-2024 take 1 tablet by mouth once daily Pantoprazole 40 mg tablet,delayed release (DR/EC) Discontinued 40 mg PO DAILY January 25, 2024 12:00am March 16, 2024 9:11am simvastatin 20 mg oral tablet (20 sources) HMG-CoA Reductase Inhibitor Start: 01-24-2016 End: 06-14-2017 take 1 tablet by mouth at bedtime Simvastatin 20 MG tablet Discontinued 20 mg PO AT BEDTIME February 12, 2016 12:00am June 14, 2017 4:46pm warfarin sodium 2.5 mg oral tablet (20 sources) Vitamin K Antagonist Start: 05-12-2016 End: 06-11-2017 take 1 tablet by mouth once daily Warfarin 2.5 MG tablet Discontinued 2.5 mg PO DAILY May 28, 2016 1:00am June 11, 2017 6:41pm Problems Active Problems Problem Classification Problem Date Documented Date Episodic/Chronic Cancer of prostate (20 sources) Malignant tumor of prostate; Translations: [Malignant neoplasm of prostate] Onset: 06-12-2024 08-21-2020 Chronic Cardiac and circulatory congenital anomalies (7 sources) Bicuspid aortic valve; Translations: [Congenital insufficiency of aortic valve] Onset: 12-27-2015 12-27-2015 Chronic Cardiac and circulatory congenital anomalies (19 sources) H/O: cardiac anomaly; Translations: [Personal history of (corrected) congenital malformations of heart and circulatory system] 06-11-2017 Episodic Cardiac dysrhythmias (20 sources) Atrial fibrillation; Translations: [Paroxysmal atrial fibrillation] Onset: 05-08-2016 05-12-2016 Chronic Comment on above: CURRENTLY REGULAR RH YTHM Chronic obstructive pulmonary disease and bronchiectasis (7 sources) Chronic obstructive lung disease; Translations: [Chronic obstructive pulmonary disease, unspecified] Onset: 02-21-2016 02-21-2016 Chronic Coronary atherosclerosis and other heart disease (20 sources) Atherosclerotic heart disease of [place] coronary artery without angina pectoris; Translations: [Coronary atherosclerosis] Onset: 02-17-2016 02-17-2016 Chronic Comment on above: Nonobstructive CAD p er [facility] 12/20/2009; [facility] Disorders of lipid metabolism (20 sources) Hyperlipidemia; Translations: [Hyperlipidemia, unspecified] Onset: 12-27-2015 12-27-2015 Chronic Esophageal disorders (4 sources) Gastroesophageal reflux disease; Translations: [Gastro-esophageal reflux disease without esophagitis] Onset: 03-01-2024 02-03-2024 Chronic Essential hypertension (20 sources) Essential hypertension; Translations: [Essential (primary) hypertension] Chronic Heart valve disorders (20 sources) Nonrheumatic aortic (valve) stenosis; Translations: [Nonrheumatic mitral (valve) insufficiency] Onset: 12-27-2015 12-27-2015 Chronic Comment on above: 04/09/2016 @ [facility]: # [address] [facility] [facility] [employer] Other lower respiratory disease (2 sources) Shortness of breath; Translations: [Shortness of breath] Onset: 01-26-2025 Episodic Other upper respiratory disease (7 sources) Allergic rhinitis; Translations: [Allergic rhinitis, unspecified] Onset: 02-21-2016 02-23-2016 Chronic Peripheral and visceral atherosclerosis (1 source) Peripheral vascular disease, unspecified; Translations: [Peripheral vascular disease, unspecified] Onset: 06-15-2024 Chronic Substance-related disorders (1 source) Nicotine dependence, cigarettes, uncomplicated; Translations: [Nicotine dependence, cigarettes, uncomplicated] Onset: 05-15-2024 Chronic Unclassified (4 sources) Replacement of aortic valve ; Translations: [Presence of prosthetic heart valve] Onset: 05-12-2016 05-12-2016 Unclassified (4 sources) Long-term drug therapy; Translations: [Other fdc (current) drug therapy] Onset: 12-27-2015 12-27-2015 Past or Other Problems Problem Classification Problem Date Documented Date Episodic/Chronic Abdominal hernia (4 sources) Gastroesophageal reflux disease with hiatal hernia; Translations: [Diaphragmatic hernia without obstruction or gangrene] Onset: 03-01-2024 Episodic Coma; stupor; and brain damage (7 sources) [...] 02-10-2016 Episodic Other aftercare (3 sources) Other fdc (current) drug therapy; Translations: [Other longwall foreman (current) drug therapy] Onset: 6 12-27-2015 Episodic [...] Test Name Value Interpretation Reference Range Facility CBC-Complete Blood Cnt No Di ffjohn 12-04-2024 Erythrocyte distribution width (RBC) [Ratio] 14.0 % Normal 11.6-14.6 [facility] Comment on above: Order Comment: Order Date: 12/04/24 Order Info: [id number] - CBC Performed By: #### L 100.0500 #### [facility] [address] [place], [address] Hematocrit (Bld) [Volume fraction] 46.3 % Normal 40-54 [facility] Comment on above: Order Comment: Order Date: 12/04/24 Order Info: [id number] - CBC Performed By: #### L 100.0500 #### [facility] [address] [place], [address] Hemoglobin (Bld) [Mass/Vol] 15.4 g/dL Normal 13.0-16.5 [facility] Comment on above: Order Comment: Order Date: 12/04/24 Order Info: [id number] - CBC Performed By: #### L 100.0500 #### [facility] [address] [place], [address] MCH (RBC) [Entitic mass] 31.2 pg Normal 27.0-32.0 [facility] Comment on above: Order Comment: Order Date: 12/04/24 Order Info: [id number] - CBC Performed By: #### L 100.0500 #### [facility] [address] [place], [address] MCHC (RBC) [Mass/Vol] 33.3 g/dL Normal 32-36 [facility] Comment on above: Order Comment: Order Date: 12/04/24 Order Info: [id number] - CBC Performed By: #### L 100.0500 #### [facility] [address] [place], [address] MCV (RBC) [Entitic vol] 93.7 fL Normal 80-94 [facility] Comment on above: Order Comment: Order Date: 12/04/24 Order Info: [id number] - CBC Performed By: #### L 100.0500 #### [facility] [address] [place], [address] Platelet mean volume (Bld) [Entitic vol] 9.7 fL Normal 6.2-12.0 [facility] Comment on above: Order Comment: Order Date: 12/04/24 Order Info: [id number] - CBC Performed By: #### L 100.0500 #### [facility] [address] [place], [address] Platelets (Bld) [#/Vol] 200 10*3/uL Normal 150-450 [facility] Comment on above: Order Comment: Order Date: 12/04/24 Order Info: [id number] - CBC Performed By: #### L 100.0500 #### [facility] [address] [place], [address] RBC (Bld) [#/Vol] 4.94 10*6/uL Normal 4.6-6.2 [facility] Comment on above: Order Comment: Order Date: 12/04/24 Order Info: [id number] - CBC Performed By: #### L 100.0500 #### [facility] [address] [place], [address] RDW SD 48.4 fl High 35.1-43.9 [facility] Comment on above: Order Comment: Order Date: 12/04/24 Order Info: [id number] - CBC Performed By: #### L 100.0500 #### [facility] [address] [place], [address] WBC (Bld) [#/Vol] 5.4 10*3/uL Normal 4.4-11.0 [facility] Comment on above: Order Comment: Order Date: 12/04/24 Order Info: [id number] - CBC Performed By: #### L 100.0500 #### [facility] [address] [place], [place], [address] Erythrocyte distribution wid th ratioOrdered By: Tom Antonio on 12-04-2024 Erythrocyte distribution width (RBC) [Ratio] 14.0 % 11.6-14.6 [facility] Erythrocyte distribution wid th standard deviationOrdered By: Tom Antonio on 12-04-2024 Erythrocyte distribution width (RBC) [Ratio] 48.4 fl High 35.1-43.9 [facility] Hematocrit Auto (Bld) [Volum e fraction]Ordered By: Tom Antonio on 12-04-2024 Hematocrit (Bld) [Volume fraction] 46.3 % 40-54 [facility] Hemoglobin measurementOrdere d By: Tom Antonio on 12-04-2024 Hemoglobin (Bld) [Mass/Vol] 15.4 g/dL 13.0-16.5 [facility] L503.7505on 12-04-2024 Natriuretic peptide B (Bld) [Mass/Vol] 384 pg/mL Normal <=900 [facility] Comment on above: Result Comment: Hear t Failure Unlikely: < 300 pg/mL Heart Failure Likely < 50 Years: > 450 pg/mL 50-75 Years: > 900 pg/mL >75 Years: > 1800 pg/mL Performed By: #### L 503.7505 #### [facility] [address] [place], [address] MCV (mean corpuscular volume ) determinationOrdered By: Tom Antonio on 12-04-2024 MCV (RBC) [Entitic vol] 93.7 fL 80-94 [facility] Mean corpuscular hemoglobin (MCH) determinationOrdered By: Tom Antonio on 12-04-2024 MCH (RBC) [Entitic mass] 31.2 pg 27.0-32.0 [facility] Mean corpuscular hemoglobin concentration (MCHC) determinationOrdered By: Tom Antonio on 12-04-2024 MCHC (RBC) [Mass/Vol] 33.3 g/dL 32-36 [facility] Mean platelet volume determi nationOrdered By: Tom Antonio on 12-04-2024 Platelet mean volume (Bld) [Entitic vol] 9.7 fL 6.2-12.0 [facility] Natriuretic peptide.B prohor quang N-Terminal [Mass/volume] in Serum or PlasmaOrdered By: Tom Antonio on 12-04-2024 Natriuretic peptide.B prohormone N-Terminal [Mass/Vol] 384 pg/mL <900 [facility] Comment on above: Heart Failure Unlike ly: < 300 pg/mLHeart Failure Likely< 50 Years: > 450 pg/mL50-75 Years: > 900 pg/mL>75 Years: > 1800 pg/mL Platelet countOrdered By: Danyelle Antonio on 12-04-2024 Platelets (Bld) [#/Vol] 200 10*3/uL 150-450 [facility] RBC Auto (Bld) [#/Vol]Ordere d By: Tom Antonio on 12-04-2024 RBC (Bld) [#/Vol] 4.94 10*6/uL 4.6-6.2 [facility] White blood cell (WBC) count Ordered By: Tom Antonio on 12-04-2024 WBC (Bld) [#/Vol] 5.4 10*3/uL 4.4-11.0 [facility] Low Dose CT Lung Screeningon 05-16-[address] Lung Screening [facility] Imaging Services [address] [place] [id number] Lung Screening MR#: [id number] Acct: [id number] Name: FENG PARK Rep #: [id number] : 1955 M 68 From: Juan David medrano MD PCP: Dr. Tom Antonio MD Status: REG CLI Study: Low Dose CT Lung Screening Date of Exam: 05/16 Exam# [id number] Ordering Dr: Tom Antonio :[id number] STUDY: LOW DOSE CT LUNG CANCER SCREENING REASON FOR EXAM: Male, 68 years old. former smoker. 30+ pack year.. Patient quit 10 years ago. RADIATION DOSAGE (If Supplied By Facility): CTDIvol = ( 3.02 ) mGy, DLP = ( 114.75 ) mGycm TECHNIQUE: No contrast was administered. Low dose technique was utilized (average mAS-38 and kVp 120). 1.25 mm axial source images with a slice interval of 1.25-mm were reconstructed in lung windows. 2.5 mm axial source images with a slice interval of 2.5-mm were reconstructed in lung windows. 5.0 mm axial source images with a slice interval of 5.0-mm were reconstructed in soft tissue windows. COMPARISON: Comparison is made with prior examination dated March 26, 2023. NODULES: Stable scattered calcified granulomas. Stable 2 mm pleural-based nodule in the right middle lobe. Stable 4 mm nodule in the right middle lobe as seen on axial image #153. Emphysema: Emphysematous changes and scarring in both lungs. Endobronchial lesion: None Aorta: Atherosclerotic plaque formation of the aortic arch. CORONARY ARTERIES: Coronary artery calcification is seen. Heart: Prior midline sternotomy and the aortic valve replacement. Pulmonary artery: Unremarkable Mediastinal nodes: Unremarkable Other chest and abdominal findings: CT/Low Dose CT Lung Screening IMPRESSION: Lung-RADS category 2 - Continue annual screening with LDCT in 12 months. IMPORTANT NOTES FOR USE: ACR Lung-RADS Version 1.1 Assessment Categories Release Date: 2018 Category: Coded 0-4 bases on nodule(s) with highest degree of suspicion. Negative screen is defined as categories 1 and 2; a positive screen is defined as categories 3 and 4. Category 3 and 4A nodules that are unchanged on interval CT should be coded as category 2, and individuals returned to screening in 12 months. Category 4X: Category 3 or 4 nodules with additional imaging findings that increase the suspicion of lung cancer, such as spiculation, GGN that doubles in size in 1 year, enlarged lymph notes, etc. Category Modifiers: S (significant finding unrelated to lung cancer) Electronically Signed: Juan David Clark MD at 15:03 EST , CC: Dr. Tom Antonio MD [facility] Laboratory Technician: Signed Normal [facility] Lower Ext Art Exam w/ Exerci justin 05-16-2024 Lower Ext Art Exam w/ Exercise [facility] Cardi[facility] Services [address] [place] [address] Lower Ext Art Exam w/ Exercise 05/16/24 0759 MR#: [id number] Acct: [id number] Name: FENG PARK Rep #: [id number] : 1955 68 From: Jl Snede MD Attending Dr: Dr. Tom Antonio MD Status: REG CLI Ordering Dr: Tom Antonio MD Date: 05/16/24 Location: [facility] Sex: M C Admitted: Reason For Study: PVD Procedure A bilateral lower extremity continuous wave Doppler with analog waveform analysis,segmental pressures,and ankle brachial indexes with exercise. Left Segmental Pressures Left brachial= 159mmHg. Left posterior tibial artery = 175mmHg. Left dorsalis pedis artery = 177mmHg. Left digit = 70 mmHg. The left posterior tibial artery waveforms are triphasic. The left dorsalis pedis waveforms are triphasic. Right Segmental Pressures Right brachial= 156mmHg. Right posterior tibial artery = 180mmHg. Right dorsalis pedis artery = 177mmHg. Right digit = 80 mmHg. The right posterior tibial artery waveforms are triphasic. The right dorsalis pedis waveforms are triphasic. Indices The right ankle brachial index by the posterior tibial artery is 1.13. The right ankle brachial index by the dorsalis pedis is 1.11. The right digital-brachial index is 0.50. The right ankle brachial index by the posterior tibial artery post exercise is 1.17. The left ankle brachial index by the posterior tibial artery is 1.10. The left ankle brachial index by the dorsalis pedis is 1.11. The left digital-brachial index is 0.44. The left dorsalis pedis index post exercise is 1.13. VL/Lower Ext Art Exam w/ Exercise Interpretation Summary Right EDE 1.13, normal. Doppler/PVR waveforms of the right leg normal at rest. TBI diminished, pedal/digit disease vs spasm. Right lower extremity exhibits normal response to exercise. Left EDE 1.11, normal. Doppler/PVR waveforms of the left leg normal at rest. TBI diminished, pedal/digit disease vs spasm. Left lower extremity exhibits normal response to exercise. Ordering Physician: Tom Antonio Referring Physician: TOM ANTONIO MD Performed By: Clifford Tosusaint Efrain 05/16/241719 Date Jl Sneed MD CC: Dr. Tom Antonio MD Date Dictated: 05/16/24 0759 Date Transcribed: 05/16/241719 [facility] Laboratory Technician: Signed Normal [facility] PSA,Total- Diagnosticon 04-30 PSA, DIAGNOSTIC < 0.01 Normal 0.0-4.0 [facility] Comment on above: Result Comment: This test was performed using the TPSA assay method for the KeyVive chemistry system. Values obtained with different assay methods cannot be used interchangably. When changing PSA assays in the course of monitoring a patient, additional sequential testing should be carried out to confirm baseline values. Performed By: #### L 501.9520, L100.0500 #### [facility] Laboratory [address] [place], [address] Surgery Specimen Level [place] 05-12-2024 Surgery Specimen Level IV -------- Patient Age/Sex Location Account Attending Physician -------- FENG PARK 68[facility] [id number] Sasha [place] -------- Specimen: [id number] Received: 05/12/24 Status: DUGLAS Francis Num: [id number] Spec Type: Lesion Subm Dr: Sasha España HEADER OPERATION: Excision PRE-OP DIAGNOSIS: Squamous cell carcinoma TISSUE SUBMITTED: Left upper arm -------- MICROSCOPIC DIAGNOSIS Left upper arm lesion, excisional biopsy: Squamous cell carcinoma insitu, completely excised. Mild actinic keratosis and solar elastosis. 05/15/2024 MICROSCOPIC DESCRIPTION Slides are reviewed. GROSS DESCRIPTION Received in fixative is one container labeled with the patient's name and designated Left upper arm. The specimen consists of a skin ellipse measuring 1.5cm in length, 1.0cm in greatest width, and excised to a depth of 5.0mm. Definitive a surface lesion is not grossly identified. Surgical margins are inked black. The specimen is serially sectioned and submitted totally in one cassette with the two smallest triangular fragments representing the end of margins for a total of five fragments in one cassette. 05/12/2024 TC:0 CPT:86302 -------- Patient Age/Sex Location Account Attending Physician -------- FENG PARK 68[facility] [id number] Sasha Esp[place] -------- Signed (signature on file) Dr. Abilio Meade MD 05/15/24 1302 -------- Normal [facility] Comment on above: Performed By: #### P SUIV #### [facility] [address] [place], [address] Echo Complete W/ Contraston 03-24-2024 Echo Complete W/ Contrast [facility] [address] [place] [address] Echo Complete W/ Contrast 03/24/24 0957 MR#: [id number] Acct: [id number] Name: FENG PARK Rep #: [id number] : 1955 68 From: David Jackson MD Attending Dr: Dr. David Jackson MD Status: WILIAN KHALIL Ordering Dr: David Jackson MD Date: 03/24/24 Location: [facility] Sex: M C Admitted: Reason For Study: Valve Replacement Eval Procedure This was a 2D Doppler, Color Flow transthoracic echocardiogram. Contrast injection was performed. Exam performed in department. Left Ventricle Normal LV size. Left ventricular systolic function is normal. Stage 1 diastolic dysfunction. No regional wall motion abnormalities noted. Right Ventricle Normal RV size. Normal systolic function. Atria Normal left atrium. Normal right atrium. Mitral Valve Normal mitral valve. Mild (1+) eccentric mitral valve insufficiency. Tricuspid Valve Normal tricuspid valve. Mild (1+) tricuspid valve insufficiency. Pulmonary artery systolic pressure is 34 mmHg. Aortic Valve Peak aortic valve gradient 27 mmHg. Mean aortic valve gradient 14 mmHg. Mild (1+) aortic valve insufficiency. Bioprosthetic aortic valve. Pulmonic Valve Normal pulmonic valve. Great Vessels Normal aortic root. The pulmonary artery is normal size. Inferior vena cava collapse with respiration. Pericardium/Pleural No pericardial effusion. Medication 22 gauge I.V. with prn adaptor inserted into right arm. Diluted definity 2ml given slow IV push to enhance endocardial definition. MMode/2D Measurements Calculations LVIDd: 4.7 cm IVSd: 0.86 cm LVOT diam: 2.0 cm LVIDs: 2.9 cm LVPWd: 1.1 cm RVDd: 3.6 cm FS: 37.9 % LVOT area: 3.0 cm2 LAV(MOD-bp): 56.9 ml LVAd ap4: 25.8 cm2 SV(MOD-sp4): 49.2 ml LAV(MOD-bp) Indexed: 26.1 ml/m2 LVLd ap4: 7.4 cm LAV(MOD-sp2): 55.6 ml EDV(MOD-sp4): 71.0 ml LAV(MOD-sp4): 58.1 ml EDV(sp4-el): 76.6 ml LVAs ap4: 12.6 cm2 LVLs ap4: 6.0 cm ESV(MOD-sp4): 21.8 ml ESV(sp4-el): 22.2 ml EF(MOD-sp4): 69.2 % EF(sp4-el): 71.1 % SV(sp4-el): 54.5 ml LA A4 area: 20.2 cm2 LA dimension(2D): 4.1 cm RA A4 area: 18.4 cm2 TAPSE: 1.9 cm Time Measurements MV dec time: 0.23 sec Doppler Measurements Calculations MV E max d[place]: 67.2 cm/sec Lat Peak E' [place]: 4.7 cm/sec Med Peak E' [place]: 5.3 cm/sec MV A max [place]: 88.9 cm/sec E/E' lat: 14.4 E/E' med: 12.8 MV E/A: 0.76 MV V2 max: 101.0 cm/sec MV P1/2t max d[place]: 77.3 cm/sec Ao V2 max: 258.5 cm/sec MV max P.1 mmHg MV P1/2t: 88.3 msec Ao max P.8 mmHg MV V2 mean: 58.8 cm/sec MV dec slope: 256.4 cm/sec2 Ao V2 mean: 177.3 cm/sec MV mean P.6 mmHg MVA(P1/2t): 2.5 cm2 Ao mean P.3 mmHg MV V2 VTI: 26.7 cm Ao V2 VTI: 54.6 cm MVA(VTI): 2.4 cm2 AV (velocity ratio): 0.40 TAINA(I,D): 1.2 cm2 TAINA(V,D): 1.1 cm2 AI max dakota: 488.7 cm/sec LV V1 max: 91.4 cm/sec SV(LVOT): 65.0 ml AI max P.5 mmHg LV V1 max P.4 mmHg LV V1 mean P.1 mmHg AI dec slope: 296.9 cm/sec2 LV V1 mean: 68.9 cm/sec AI P1/2t: 482.1 msec LV V1 VTI: 21.7 cm PA V2 max: 100.9 cm/sec TR max dakota: 276.9 cm/sec PA max PG (full): 3.1 mmHg TR max P.7 mmHg PA V2 mean: 65.7 cm/sec PA mean PG (full): 1.5 mmHg ECHO/Echo Complete W/ Contrast Interpretation Summary Normal LV size. Left ventricular systolic function is normal. Stage 1 diastolic dysfunction. Bioprosthetic aortic valve. Contrast injection was performed. Ordering Physician: David Jackson Referring Physician: David Jackson Performed By: Tomás Alejo RCS 03/24/24 1238 Date David Jackson MD CC: Dr. Tom Antonio MD; Dr. David Jackson MD Date Dictated: 03/24/24 0957 Date Transcribed: 03/24/24 1238 [facility] Laboratory Technician: Signed Normal [facility] Cardiology Visit Reporton Cardiology Visit Report [facility] [address] [place] [address] OFFICE VISIT Date of Service: 03/16/24 MR#: [id number] Acct: [id number] Name: FENG PARK Rep #: [id number] : 1955 Provider: Dr. David Jackson MD Age/Sex: 68/M Location: [facility] Status: Signed [facility] History of Present Illness Details: Feng Park is a 67-year-old gentleman that presents here today for a cardiovascular follow-up. He has a history of a bicuspid aortic valve with aortic valve replacement in 2016, nonobstructive CAD, history of PAF, hyperlipidemia, and hypertension. From a cardiac standpoint, patient is doing well. He does not have any chest discomfort/heaviness/tightne ss. His exercise tolerance is stable for his age. He does not have any worsening symptoms of shortness of breath. He denies any PND. He does not have any orthopnea. He does not have any symptoms of congestive heart failure. He does not have any palpitations that he is aware of. He does not have lightheadedness. He does not have any lower extremity edema. He does not have any symptoms of claudication. Intake Vital Signs 01/22/23 08:49 02/23/24 14:52 03/16/24 09:10 Height 6 ft 3 in 6 ft 3 in 6 ft 3 in Weight: 198 lb BMI 24.7 BP 134/91 H Blood Pressure Location Lt brachial Position Sitting Respiration 16 Pulse 92 Pulse Source Monitor Oxygen Delivery Method room air Intake Visit Reasons: 1 Y FU PREV PFM Accompanied by: Self Is patient in pain?: No Allergies Sulfa (Sulfonamide Antibiotics) Adverse Reaction (Intermediate, Verified 03/16/24 09:11) Rash ciprofloxacin (From Cipro) Adverse Reaction (Verified 03/16/24 09:11) Itching Medications ???Medication ???Instructions ???Recorded ???Confirmed ???Type aspirin 81 mg tablet,delayed 81 mg PO DAILY 02/12/16 03/16/24 History release losartan 25 mg tablet 25 mg PO QDAY #30 tabs 06/14/17 03/16/24 Rx simvastatin 20 mg tablet 20 mg PO QHS #30 tabs 06/14/17 03/16/24 Rx fluticasone propionate 50 1 spray intranasal QDAY PRN Nasal 12/27/17 03/16/24 History mcg/actuation nasal Congestion spray,suspension (Allergy Relief (fluticasone)) dicyclomine 10 mg capsule 10 mg PO QAC PRN 03/16/24 03/16/24 History levothyroxine 100 mcg tablet 100 mcg PO QDAY 03/16/24 03/16/24 History Ejection fraction %: 65 Have you fallen in the past year?: No PFSH Medical History Wears glasses Wears partial dentures Wears dentures Cancer Thyroid disease Arthritis Prostate disease High cholesterol Former smoker Leg cramps History of stress test History of echocardiogram Cardiology follow-up encounter Hiatal hernia with GERD GERD (gastroesophageal reflux disease) Essential hypertension Hyperlipidemia Nonrheumatic aortic (valve) insufficiency Nonrheumatic mitral (valve) insufficiency History of bicuspid aortic valve Atherosclerotic heart disease of [place] coronary artery without angina pectoris Paroxysmal atrial fibrillation Surgical History History of repair of hiatal hernia History of esophagogastroduodenoscopy (EGD) History of prostatectomy History of aortic valve replacement with bioprosthetic valve ( 04/09/16) History of left heart catheterization ( 12/20/09) History of right and left heart catheterization Family History Father , age 57 CAD (coronary artery disease) Rheumatic heart disease Mother , age 78 Diabetes Congestive heart failure Sister , age 50, diabetes complications Diabetes Social History Smoking Status: Former smoker alcohol intake: current alcohol intake frequency: holidays/special occasions only substance use type: does not use caffeine: Yes Type: coffee Number of servings: 1 ROS Const Const: Negative for fatigue, weakness, fever(s), headache(s), chills, frequent falls, night sweats, excessive sweating, weight gain or weight loss Eyes Eyes: Negative for blind spots, loss of peripheral vision, transient loss of vision, blurry vision, change in vision or double vision ENT ENT: Positive for neck pain (Occ); Negative for headache(s), dizziness, tinnitus, Nosebleed/epistaxis or balance problems Cardio Chest Pain: No Palpitations: No Edema: None Muscle aches with walking: None Resp Respiratory: Negative for SOB with activity, SOB at rest, SOB orthopnea SOB lying down or Cough GI GI: Negative nausea, vomiting, heartburn, bloating, vomiting blood/hematemesis, bright, red blood in stools or black,tarry stools : Negative for hematuria or frequent nighttime urination/ nocturia Musc Musc: Positive (more content not included)... Normal [facility] Surgery Visit Reporton 03-01 Surgery Visit Report [facility] [address] [place] [address] OFFICE VISIT Date of Service: 03/01/24 MR#: [id number] Acct: [id number] Name: FENG PARK Rep #: [id number] : 1955 Provider: Dr. Sohail villalba MD Age/Sex: 68/M Location: [facility] Status: Signed Intake Vital Signs 02/23/24 14:52 03/01/24 09:37 Height 6 ft 3 in Weight: 196 lb 6 oz Intake Visit Reasons: HIATAL HERNIA DOS 02/22 Chief Complaint: Hiatal Hernia DOS 02/22 Is patient in pain?: No Allergies Sulfa (Sulfonamide Antibiotics) Adverse Reaction (Intermediate, Verified 03/01/24 09:37) Rash ciprofloxacin (From Cipro) Adverse Reaction (Verified 03/01/24 09:37) Itching Medications ???Medication ???Instructions ???Recorded ???Confirmed ???Type aspirin 81 mg tablet,delayed 81 mg PO DAILY 02/12/16 02/21/24 History release losartan 25 mg tablet 25 mg PO QDAY #30 tabs 06/14/17 02/23/24 Rx simvastatin 20 mg tablet 20 mg PO QHS #30 tabs 06/14/17 02/21/24 Rx fluticasone propionate 50 1 spray intranasal QDAY PRN Nasal 12/27/17 02/21/24 History mcg/actuation nasal Congestion spray,suspension (Allergy Relief (fluticasone)) levothyroxine 50 mcg tablet 50 mcg PO DAILY 10/07/20 02/23/24 History pantoprazole 40 mg tablet,delayed 40 mg PO DAILY 01/25/24 02/23/24 History release Have you fallen in the past year?: No Subjective Details: Patient is doing well with no complaints. He reports no reflux. He does not have any incisional pain. He reports no dysphagia. Objective Details: Incisions clean dry and intact. Steri-Strips removed. Coding Level of Care Code Global Post Op Diagnoses GERD (gastroesophageal reflux disease) K21.9 [facility] Medical History Wears glasses Wears partial dentures Wears dentures Cancer Thyroid disease Arthritis Prostate disease High cholesterol Former smoker Leg cramps History of stress test History of echocardiogram Cardiology follow-up encounter Hiatal hernia with GERD GERD (gastroesophageal reflux disease) Essential hypertension Hyperlipidemia Nonrheumatic aortic (valve) insufficiency Nonrheumatic mitral (valve) insufficiency History of bicuspid aortic valve Atherosclerotic heart disease of [place] coronary artery without angina pectoris Paroxysmal atrial fibrillation Surgical History History of esophagogastroduodenoscopy (EGD) History of prostatectomy History of aortic valve replacement with bioprosthetic valve ( 04/09/16) History of left heart catheterization ( 12/20/09) History of right and left heart catheterization Family History Father , age 57 CAD (coronary artery disease) Rheumatic heart disease Mother , age 78 Diabetes Congestive heart failure Sister , age 50, diabetes complications Diabetes Social History Smoking Status: Former smoker Assessment and Plan (No Qualifiers) Assessment and Plan (1) GERD (gastroesophageal reflux disease): Status: Acute Plan: Patient had GERD with a large hiatal hernia. He is doing well after hiatal hernia repair. He may stop his PPI. He may advance to a soft diet. Follow-up as needed. He may resume activity 6 weeks postop. Sohail Malloy MD Pager: [facility] [address] [place] [address], [address] [place] [address] Office: 03/01/24 1002 Date [facility] Signature: Date (if applicable) CC: Dr. Tom Antonio MD Normal [facility] Basic Metabolic Profile (BMP )on 02-24-2024 BUN/CRE 26.0 RATIO High 10-20 [facility] Comment on above: Performed By: #### L 501.9520, L100.0500 #### [facility] [address] [place], [address] CA,Total 8.2 mg/dL Low 8.5-10.1 [facility] Comment on above: Performed By: #### L 501.9520, L100.0500 #### [facility] [address] [place], [address] Chloride [Moles/Vol] 109 mmol/L High 98-107 [facility] Comment on above: Performed By: #### L 501.9520, L100.0500 #### [facility] [address] [place], [address] CO2 [Moles/Vol] 23.0 mmol/L Normal 21.0-32.0 [facility] Comment on above: Performed By: #### L 501.9520, L100.0500 #### [facility] [address] [place], [address] Creatinine [Mass/Vol] 1.00 mg/dL Normal 0.70-1.30 [facility] Comment on above: Result Comment: The validity of the calculated GFR GFRAA in patients over 70 years has not been determined. Clinical correlation is essential. Performed By: #### L 501.9520, L100.0500 #### [facility] [address] [place], [address] ECRCL 83.33 ml/min Normal [facility] Comment on above: Performed By: #### L 501.9520, L100.0500 #### [facility] [address] [place], [address] EST GFR - AA 95 mL/min Normal >60 [facility] Comment on above: Result Comment: Afri can Japanese GFR Calc Performed By: #### L 501.9520, L100.0500 #### [facility] [address] [place], [address] GAP 5 Normal 5-15 [facility] Comment on above: Performed By: #### L 501.9520, L100.0500 #### [facility] [address] [place], [address] GFR/1.73 sq M.predicted among non-blacks MDRD (S/P/Bld) [Vol rate/Area] 79 mL/min/{1.73_m2} Normal >60 [facility] Comment on above: Result Comment: Non- GFR Calc Performed By: #### L 501.9520, L100.0500 #### [facility] [address] [place], [address] Glucose [Mass/Vol] 111 mg/dL High 74-106 [facility] Comment on above: Result Comment: Fast ing Glucose result from 100 to 125 mg/dL suggests IMPAIRED HOMEOSTASIS per A.D.A. criteria. Performed By: #### L 501.9520, L100.0500 #### [facility] [address] [place], [address] Potassium [Moles/Vol] 4.3 mmol/L Normal 3.5-5.1 [facility] Comment on above: Performed By: #### L 501.9520, L100.0500 #### [facility] [address] [place], [address] Sodium [Moles/Vol] 137 mmol/L Normal 136-145 [facility] Comment on above: Performed By: #### L 501.9520, L100.0500 #### [facility] [address] [place], [address] Urea nitrogen [Mass/Vol] 26 mg/dL High 7-18 [facility] Comment on above: Performed By: #### L 501.9520, L100.0500 #### [facility] [address] [place], [address] CBC W/Diff, Automatedon 09-2 -2023 Absolute Lymph 1.22 X10 3/uL Normal 0.83-4.51 [facility] Comment on above: Performed By: #### L 501.9520, L100.0500 #### [facility] [address] [place], [address] Absolute Neut 7.5 X10 3/uL Normal 2.0-7.7 [facility] Comment on above: Performed By: #### L 501.9520, L100.0500 #### [facility] [address] [place], [address] Basophils/100 WBC (Bld) 0.2 % Normal 0-1 [facility] Comment on above: Performed By: #### L 501.9520, L100.0500 #### [facility] [address] [place], [address] Eosinophils/100 WBC (Bld) 0.1 % Normal 0-5 [facility] Comment on above: Performed By: #### L 501.9520, L100.0500 #### [facility] [address] [place], [address] Erythrocyte distribution width (RBC) [Ratio] 14.1 % Normal 11.6-14.6 [facility] Comment on above: Performed By: #### L 501.9520, L100.0500 #### [facility] [address] [place], [address] Hematocrit (Bld) [Volume fraction] 43.4 % Normal 40-54 [facility] Comment on above: Performed By: #### L 501.9520, L100.0500 #### [facility] Laboratory [address] [place], [address] Hemoglobin (Bld) [Mass/Vol] 14.4 g/dL Normal 13.0-16.5 [facility] Comment on above: Performed By: #### L 501.9520, L100.0500 #### [facility] [address] [place], [address] IG% 0.300 Normal 0.0-0.9 [facility] Comment on above: Result Comment: IG% - Immature Granulocytes (promyelocytes, myelocytes and metamyelocytes) > 1% indicates that a LEFT SHIFT is Present. Performed By: #### L 501.9520, L100.0500 #### [facility] [address] [place], [address] Lymphocytes/100 WBC (Bld) 12.8 % Low 19-41 [facility] Comment on above: Performed By: #### L 501.9520, L100.0500 #### [facility] [address] [place], [address] MCH (RBC) [Entitic mass] 30.8 pg Normal 27.0-32.0 [facility] Comment on above: Performed By: #### L 501.9520, L100.0500 #### [facility] [address] [place], [address] MCHC (RBC) [Mass/Vol] 33.2 g/dL Normal 32-36 [facility] Comment on above: Performed By: #### L 501.9520, L100.0500 #### [facility] [address] [place], [address] MCV (RBC) [Entitic vol] 92.7 fL Normal 80-94 [facility] Comment on above: Performed By: #### L 501.20, L100.0500 #### [facility] [address] [place], [address] Monocytes/100 WBC (Bld) 7.5 % Normal 0-10 [facility] Comment on above: Performed By: #### L 501.9520, L100.0500 #### [facility] [address] [place], [address] Neutrophils/100 WBC (Bld) 79.1 % High 47-70 [facility] Comment on above: Performed By: #### L 501.9520, L100.0500 #### [facility] [address] [place], [address] Nucleated RBC (Bld) [#/Vol] 0 10*3/uL Normal 0-5 [facility] Comment on above: Performed By: #### L 501.9519, L100.0500 #### [facility] [address] [place], [address] Platelet mean volume (Bld) [Entitic vol] 9.1 fL Normal 6.2-12.0 [facility] Comment on above: Performed By: #### L 501.9519, L100.0500 #### [facility] [address] [place], [address] Platelets (Bld) [#/Vol] 189 10*3/uL Normal 150-450 [facility] Comment on above: Performed By: #### L 501.95, L100.0500 #### [facility] [address] [place], [address] RBC (Bld) [#/Vol] 4.68 10*6/uL Normal 4.6-6.2 [facility] Comment on above: Performed By: #### L 501.20, L100.0500 #### [facility] [address] [place], [address] RDW SD 47.6 fl High 35.1-43.9 [facility] Comment on above: Performed By: #### L 501.9520, L100.0500 #### [facility] [address] [place], [address] WBC (Bld) [#/Vol] 9.5 10*3/uL Normal 4.4-11.0 [facility] Comment on above: Performed By: #### L 501.9520, L100.0500 #### [facility] [address] [place], [address] Discharge Instructionon 01-30 Discharge Instruction [facility] Medical Records Department [address] [place] [address] Instructions for Home/Discharge Instructions 02/24/24 1106 MR#: [id number] Acct: [id number] Name: FENG PARK Rep #: [id number] : 1955 68 From: Cristiana JAVIER PA-C PCP: Dr. oTm Antonio MD Status:ADM SANDRA Discharge Instructions Diet Discharge Diet: - (Follow soft food diet provided at discharge and office visit) Activity Discharge Activity: May Not Drive (3-5 days) and May Shower (today) Ice area for (Minutes): 20 Lifting Restrictions: No lifting >15 pounds for 2 weeks. No strenuous activities for 4 weeks Dressing / Incision Call your doctor if your incision/area has: Continuous Slow Oozing, Sudden Increased Bleeding, Increased Pain/ Swelling, Increased Redness, Foul Smelling Discharge and Swelling at the incision site Call your doctor if you observe: Fever of 101 or Higher and - (Difficulty swallowing) Suture Line Care: Avoid Pulling/Pushing and Avoid Pinching/Bending Remove Dressing in: 2 days (You may remove steri-strips (white tape strips) in 1 week) Cleanse incision/area with: Soap Water Follow Up Care Please Follow Up With: Sohail Malloy MD When: Please contact our office at [phone], opt #2 to schedule a 7 day follow-up with Dr. Malloy. Test Results: Test results from this visit will be discussed in further detail at your follow-up appointment, if applicable. Discharge Plan Admission Admit Date/Time: 02/23/24 10:40 Primary Reason for Your Visit: S/p Laparoscopic toupet fundoplication Attending Provider: Sohail Malloy Primary Care Provider: Tom Antonio Instructions Additional Instructions / Restrictions: Laparoscopic Tiago fundoplication or Toupet procedure Diet ??? This is outlined on a separate diet instruction sheet (see next page) Activity ??? You may drive in 3-5 days but not while taking narcotic pain medication. ??? I encourage walking. You may go up steps, one at a time. ??? Do not swim or use hot tubs for 2 weeks. Lifting ??? You may lift up to 15 pounds for 2 weeks. No strenuous exercises/activities for 4-6 weeks. Dressings/Incision ??? You may shower OVER your plastic dressings ??? Do NOT tub bathe for 1 week ??? Leave plastic dressings on for 2 days. ??? When plastic dressings are removed, you will find steri strips. It is okay to continue showering with them in place, pat them dry. ??? You may remove steri-strips after 1 week. We recommend getting them soaking wet for easier removal. Medications ??? Anesthesia used during surgery and pain medications may cause constipation. I recommend initiating on the day of surgery a fiber supplement like, Metamucil, Citrucel, FiberCon, Benefiber, or a generic form of these medications. 1 heaping tablespoon in water daily. You may continue to utilize any bowel regimen or oral laxatives that you routinely take. ??? As long as you are not intolerant to Tylenol, acetaminophen, ibuprofen, Motrin, Advil, Aleve, or similar medications, I would recommend transitioning to these [id number]-hqn-[id number] medicines as soon as possible instead of continued use of narcotic pain medication. Follow up ??? You should call [facility] soon after surgery, at [phone] option 1 to make a follow up appointment for 7 days after your surgery. Diet After Tiago Fundoplication Surgery This diet information is for patients who have recently had Tiago fundoplication surgery to correct reflux disease or to repair various types of hernias, such as hiatal hernia and intrathoracic stomach. This diet may also be used for other gastrointestinal surgeries, such as Heller myotomy and repair of achalasia. The diet will help control diarrhea, excess gas and swallowing problems, which may occur after this type of surgery. Keeping Your Stomach from Stretching ? Eat small, frequent meals (six to eight per day). This will help you consume the majority of the nutrients you need without causing your stomach to feel full or distended. ? Drinking large amounts of fluids with meals can stretch your stomach. You may drink fluids between meals as often as you like, but limit fluids to 1/2 cup (4 fluid ounces) with meals and one cup (8 fluid ounces) with snacks. ? Sit upright while eating and stay upright for 30 minutes after each meal. Aurora can help food move through your digestive tract. Do not lie down after eating. Sit upright for 2 hours after your last meal or snack of the day. ? Eat very slowly. Take your time when eating. ? Take small bites and chew your food well to polymerization helper in swallowing and digestion. ? Avoid crusty breads and sticky, gummy foods, such as bananas, fresh doughy breads, rolls and doughnuts. These types of foods become sticky and d (more content not included)... Normal [facility] MR/POSTOP.ANEon 02-23-2024 MR/POSTOP.[facility] Medical Records Department [address] [place] [address] Anesthesia Postop Eval I 02/23/24 1043 MR#: [id number] Acct: [id number] Name: FENG PARK Rep #: [id number] : 1955 68 From: Radha Mc CRNA PCP: Dr. Tom Antonio MD Status:REG SDC Y Race: C Location: [place] [address] Anesthesia: Postop Eval I Current Vital Signs Temperature: 97.1 F Pulse Rate: 96 Blood Pressure: 136/76 Respiratory Rate: 18 Pulse Ox: 95 Oxygen Delivery Method: Room Air Assessment Airway patent: Yes Spontaneous unlabored respirations: Yes Mental status: Asleep nausea: No Vomiting: No Anesthesia Complication: No Fluid Hydration Crystalloid volume administer (ml): 1,000 Total IV fluid infused: 1,000 Progress Note Anesthesia document: Postop Eval 1 completed: Yes 02/23/24 1044 Date Radha Mc GATE MANAGER Cosigner Signature: Date CC: Signed Normal [facility] [id number] 02-23-2024 MR/POSTOPAN2 [facility] Medical Records Department [address] [place] [address] Anesthesia Postop Eval II 02/23/24 1623 MR#: [id number] Acct: [id number] Name: FENG PARK Rep #: [id number] : 1955 68 From: Lester Singleton MD PCP: Dr. Tom Antonio MD Status:ADM SANDRA Y Race: C Location: [place] [address] Anesthesia Postop Eval I Sum Postop Eval Completion status Anesthesia document: Postop Eval 1 completed: Yes Anesthesia Postop Eval I Summary Anesthesia Postop Eval I Summary: Anesthesia Postop Eval I: Assessment Summary Airway patent Yes 02/23/24 10:44 GATE MANAGER.[email or web address] Spontaneous unlabored Yes 02/23/24 10:44 GATE MANAGER.[email or web address] respirations Mental status Asleep 02/23/24 10:44 GATE MANAGER.MACIEL nausea No 02/23/24 10:44 GATE MANAGER.MACIEL Vomiting No 02/23/24 10:44 GATE MANAGER.MACIEL Anesthesia Postop Eval I: Fluid Summary Crystalloid volume administer 1,000 02/23/24 10:44 CED (ml) Colloids volume administered ( ml) Blood Product volume administered (ml) Total IV fluid infused 1,000 02/23/24 10:44 GATE MANAGERMIRACLE Anesthesia Postop Eval I: Summary Notes Anesthesia Complication No 02/23/24 10:44 GATE MANAGERMIRACLE Anesthesia Complication Comment: Post-operative progress note Anesthesia: Postop Eval II Evaluation Mental status: Awake and Calm Pain Level: 2 nausea: No Vomiting: No Progress Note Post-operative progress note: Ativan helped with anxiety. Complications Anesthesia Complication: No 02/23/24 1626 Date Lester Whitesideignreese Signature: Date CC: Signed Normal [facility] Operative Reporton 4 Operative Report [facility] Medical Records Department [address] [place] [address] Operative Report 02/23/24 1041 MR#: [id number] Acct: [id number] Name: FENG PARK Rep #: [id number] : 1955 68 From: Sohail Malloy MD PCP: Dr. Tom Antonio MD Status:[facility] Location: [place] [address] Report of Operation Date of Procedure: 02/23/24 Pre-Operative Diagnosis: Hiatal hernia and uncontrollable GERD Post-Operative Diagnosis: Same Surgery/Procedure Performed:: 1. Hiatal hernia repair with Toupet fundoplication 2. EGD Type of Anesthesia: General/Regional Specimen's removed: None Estimated Blood Loss (mL): 10 Description of Procedure: Patient was brought back to the operating room and general anesthesia was induced. The abdomen was prepped and draped in usual sterile fashion. A midline incision was made superior to the umbilicus and deepened to the fascia. The fascia was elevated and incised. Port was placed into the abdomen and it was insufflated to 15 mmHg. Patient was placed in steep reverse Trendelenburg position. Under direct visualization a 5 mm port was placed in the subxiphoid space and then the Ryan liver retractor was placed into the abdomen and elevated the left lobe of the liver. Next under direct visualization a 5 mm port was placed in the right lateral abdomen as well as 2 5-mm ports in the left lateral abdomen. The stomach was retracted out of the hiatal hernia but was very stuck due to the hernia sac. Using harmonic the right crura was dissected and then the hernia sac was entered. The hernia sac was dissected free circumferentially anteriorly this allowed for reduction of the stomach. Next the small gastrics were taken down with harmonic scalpel. After the greater curvature the stomach was released the stomach was fully delivered into the abdomen and the esophagus was identified. Both vagus nerves were identified and spared. Dissection was carried out in the mediastinum to allow for 5 cm of esophagus intra-abdominally. Next the crura was reapproximated to each other using 0 Surgidac sutures. Next the OG was removed and a 54 [place] bougie was placed. It was placed without difficulty. Next the stomach was sutured to the esophagus on both of his lateral sides using 0 Surgidac as well as a suture from the stomach to the crura posteriorly to keep it in place and from twisting. Next the patient was flattened and the abdomen was irrigated. An EGD was then performed and a well-lubricated scope was placed through the mouth and into the esophagus and into the stomach. There was mild amount of blood in the stomach but the wrap appeared in good position. There was easy entry into the stomach through the GE junction. There was no blood in the esophagus. Next the abdomen was aspirated there was no leaking during the EGD. Next the liver retractor was removed as well as all the ports. The midline incision was closed with 0 Vicryl suture. All of the other incisions were injected with local anesthetic and closed with interrupted 4-0 Monocryl sutures and Steri-Strips and bandages. Patient was awoken and taken to PACU in stable condition and will be admitted for observation. Admit VTE Documentation VTE Mechan Device Prophylaxis: SCD's 02/23/24 7752 Cosigner Signature (if applicable): CC: Dr. Sohail Malloy MD; Dr. Tom Antonio MD Signed Normal [facility] 12 Lead EKGon 02-22-2024 12 Lead EKG [facility] Cardiovascular Services [address] [place] [address] 12 Lead EKG 02/22/24 0857 MR#: [id number] Acct: [id number] Name: FENG PARK Rep #: [id number] : 1955 68 From: Blane Matthew MD Attending Dr: Dr. Sohail Malloy MD Status: PRE VTC Ordering Dr: Sohail Malloy MD Date: 02/22/24 Location: [facility] Sex: M C Admitted: Test Reason : PRE OP Blood Pressure : / mmHG Vent. Rate : 097 BPM Atrial Rate : 097 BPM P-R Int : 172 ms QRS Dur : 126 ms QT Int : 396 ms P-R-T Axes : 070 133 035 degrees QTc Int : 502 ms Normal sinus rhythm Right bundle branch block Left posterior fascicular block Bifascicular block Abnormal ECG Confirmed by Blane Matthew ([id number]), multimedia editor CRISTIANA BAUGH ([id number]) on 02/23/2024 5:24:48 AM Referred By: Sohail Malloy Confirmed By:Blane Matthew 02/23/24 0524 Date Blane Matthew MD CC: Dr. Sohail Malloy MD; Dr. Tom Antonio MD Signed Normal [facility] CBC-Complete Blood Cnt No Di ffon 02-22-2024 Erythrocyte distribution width (RBC) [Ratio] 13.9 % Normal 11.6-14.6 [facility] Comment on above: Performed By: #### L 501.9515, L100.0500 #### [facility] [address] [place], [address] Hematocrit (Bld) [Volume fraction] 47.5 % Normal 40-54 [facility] Comment on above: Performed By: #### L 501.9520, L100.0500 #### [facility] [address] [place], [address] Hemoglobin (Bld) [Mass/Vol] 15.5 g/dL Normal 13.0-16.5 [facility] Comment on above: Performed By: #### L 501.9520, L100.0500 #### [facility] [address] [place], [address] MCH (RBC) [Entitic mass] 30.4 pg Normal 27.0-32.0 [facility] Comment on above: Performed By: #### L 501.9520, L100.0500 #### [facility] [address] [place], [address] MCHC (RBC) [Mass/Vol] 32.6 g/dL Normal 32-36 [facility] Comment on above: Performed By: #### L 501.9520, L100.0500 #### [facility] [address] [place], [address] MCV (RBC) [Entitic vol] 93.1 fL Normal 80-94 [facility] Comment on above: Performed By: #### L 501.9520, L100.0500 #### [facility] [address] [place], [address] Platelet mean volume (Bld) [Entitic vol] 8.9 fL Normal 6.2-12.0 [facility] Comment on above: Performed By: #### L 501.9520, L100.0500 #### [facility] [address] [place], [address] Platelets (Bld) [#/Vol] 226 10*3/uL Normal 150-450 [facility] Comment on above: Performed By: #### L 501.9520, L100.0500 #### [facility] [address] [place], [address] RBC (Bld) [#/Vol] 5.10 10*6/uL Normal 4.6-6.2 [facility] Comment on above: Performed By: #### L 501.9520, L100.0500 #### [facility] [address] [place], [address] RDW SD 47.6 fl High 35.1-43.9 [facility] Comment on above: Performed By: #### L 501.9520, L100.0500 #### [facility] [address] [place], [address] WBC (Bld) [#/Vol] 5.8 10*3/uL Normal 4.4-11.0 [facility] Comment on above: Performed By: #### L 501.9520, L100.0500 #### [facility] [address] [place], [address] Thyroid Stim Hormone (TSH)on 02-22-2024 TSH 3.220 uIU/mL Normal 0.358-3.74 0 [facility] Comment on above: Performed By: #### L 501.9520, L100.0500 #### [facility] [address] [place], [address] Serum or plasma thyroid stim ulating hormone (TSH) measurement (units/volume)Ordered By: Edgar Antonio on 07-15-2023 TSH Qn 3.34 uIU/mL 0.358-3.74 [facility] No Panel InformationOrdered By: Johnnie Beyer on 05-11-2023 Prostate Specific Antigen Total < 0.01 ng/mL 0.0-4.0 [facility] Comment on above: This test was perfor med using the TPSA assay method for the[facility] chemistry system. Values obtained with differentassay methods cannot be used interchangably.When changing PSA assays in the course of monitoring apatient, additional sequential testing should be carriedout to confirm baseline values. No Panel InformationOrdered By: Dr. Beyer on 11-05-2022 Prostate Specific Antigen Total < 0.01 ng/mL 0.0-4.0 [facility] Comment on above: This test was perfor med using the TPSA assay method for [employer] chemistry system. Values obtained with differentassay methods cannot be used interchangably.When changing PSA assays in the course of monitoring apatient, additional sequential testing should be carriedout to confirm baseline values. Laboratory - Chemistry and C hemistry - challengeOrdered By: Dr. Antonio on 09-21-2022 Free T4 [Mass/Vol] 1.44 ng/dL 0.76-1.46 [facility] No Panel InformationOrdered By: Dr. Antonio on 09-21-2022 Thyroid Stimulating Hormone (TSH) 0.98 uIU/mL 0.358-3.74 [facility] No Panel InformationOrdered By: Dr. Antonio on 07-14-2022 Stool Pancreatic Elastase 260 >200 [facility] Comment on above: Result Units: ug Kallie st./g Severe Pancreatic Insufficiency: <100 Moderate Pancreatic Insufficiency: 100 - 200 Normal: >200 Stool Helicobacter pylori an tigen detection by immunoassayOrdered By: Dr. Antonio on 07-14-2022 H. pylori Ag IA Ql (Stl) Negative Negative [facility] Comment on above: Performed at: [address] [id number] Director: Christophe Ring MD, Phone: [phone] Absolute lymphocyte countOrd ered By: Dr. Antonio on 07-13-2022 Lymphocytes Auto (Unsp spec) [#/Vol] 1.88 10*3/uL 0.83-4.51 [facility] Basophil percentageOrdered B y: Dr. Antonio on 07-13-2022 Basophils/100 WBC (Bld) 0.7 % 0-1 [facility] Bilirubin [Mass/Vol] 0.60 mg/dL 0.20-1.00 [facility] Comment on above: For patients on eltr ombopag therapy, use of Dimension [place] TBIL is not recommended. Chloride [Moles/Vol] 107 mmol/L 98-107 [facility] Cholesterol [Mass/Vol] 149 mg/dL <200 [facility] Comment on above: <200 mg/dL Desirable 200-240 mg/dL Borderline >240 mg/dL High Risk Eosinophils/100 WBC (Bld) 1.3 % 0-5 [facility] Glucose [Mass/Vol] 90 mg/dL 74-106 [facility] Neutrophils (Bld) [#/Vol] 3.5 10*3/uL 2.0-7.7 [facility] Neutrophils/100 WBC (Bld) 58.4 % 47-70 [facility] Potassium [Moles/Vol] 4.3 mmol/L 3.5-5.1 [facility] Protein [Mass/Vol] 7.3 g/dL 6.4-8.2 [facility] Sodium [Moles/Vol] 142 mmol/L 136-145 [facility] Triglyceride [Mass/Vol] 67 mg/dL <199 [facility] Comment on above: The drugs N-Acetylcy steine and Metamizole may falsely depress this assay.Serum Triglycerides Reference Interval Normal <150 mg/dL Borderline high 150 - 199 mg/dL High 200 - 499 mg/dL Very High > or = 500 mg/dL WBC (Bld) [#/Vol] 6.0 10*3/uL 4.4-11.0 [facility] Blood erythrocytes count (nu mber/volume)Ordered By: Dr. Antonio on 07-13-2022 RBC (Bld) [#/Vol] 4.94 10*6/uL 4.6-6.2 [facility] Blood hemoglobin measurement (mass/volume)Ordered By: Dr. Antonio on 07-13-2022 Hemoglobin (Bld) [Mass/Vol] 15.9 g/dL 13.0-16.5 [facility] Blood lymphocytes/100 leukoc ytesOrdered By: Dr. Antonio on 07-13-2022 Lymphocytes/100 WBC (Bld) 31.5 % 19-41 [facility] Blood monocytes/100 leukocyt esOrdered By: Dr. Antonio on 07-13-2022 Monocytes/100 WBC (Bld) 7.6 % 0-10 [facility] Blood platelet mean volumeOr dered By: Dr. Antonio on 07-13-2022 Platelet mean volume (Bld) [Entitic vol] 9.2 fL 6.2-12.0 [facility] Determination of erythrocyte mean corpuscular volume (MCV)Ordered By: Dr. Antonio on 07-13-2022 MCV (RBC) [Entitic vol] 94.3 fL 80-94 [facility] Erythrocyte sedimentation ra teOrdered By: Dr. Antonio on 07-13-2022 ESR (Bld) [Velocity] 4 mm/h 0-20 [facility] Hematocrit Auto (Bld) [Volum e fraction]Ordered By: Dr. Antonio on 07-13-2022 Hematocrit (Bld) [Volume fraction] 46.6 % 40-54 [facility] Laboratory - Chemistry and C hemistry - challengeOrdered By: Dr. Antonio on 07-13-2022 ALP [Catalytic activity/Vol] 91 U/L 45-117 [facility] ALT [Catalytic activity/Vol] 21 U/L 16-61 [facility] CO2 [Moles/Vol] 25.0 mmol/L 21.0-32.0 [facility] Globulin (S) [Mass/Vol] 3.9 g/dL 2.2-4.2 [facility] Urea nitrogen/Creatinine [Mass ratio] 24.8 mg/mg 10-20 [facility] Laboratory - Hematology and Cell countsOrdered By: Dr. Antonio on 07-13-2022 Erythrocyte distribution width (RBC) [Entitic vol] 46.2 fL 35.1-43.9 [facility] Erythrocyte distribution width (RBC) [Ratio] 13.3 % 11.6-14.6 [facility] Immature granulocytes/100 WBC (Bld) 0.500 % 0.0-0.9 [facility] Comment on above: IG% - Immature Granu locytes (promyelocytes, myelocytes and metamyelocytes) > 1% indicates that a LEFT SHIFT is Present. MCH (RBC) [Entitic mass] 32.2 pg 27.0-32.0 [facility] Nucleated RBC/100 WBC (Bld) [Ratio] 0 % 0-5 [facility] MCHC Auto (RBC) [Mass/Vol]Or dered By: Dr. Antonio on 07-13-2022 MCHC (RBC) [Mass/Vol] 34.1 g/dL 32-36 [facility] No Panel InformationOrdered By: Dr. Antonio on 07-13-2022 Endomysial IgA Antibody Negative Negative [facility] Estimated GFR (MDRD) Amer 90 mL/min >60 [facility] Comment on above: GFR Calc Estimated GFR (MDRD) Non-Af Amer 75 mL/min >60 [facility] Comment on above: Non- GFR Calc Thyroid Stimulating Hormone (TSH) 4.16 uIU/mL 0.358-3.74 [facility] Platelets bldOrdered By: Dr. Antonio on 07-13-2022 Platelets (Bld) [#/Vol] 247 10*3/uL 150-450 [facility] Serum Helicobacter pylori Ig G antibody assay (units/volume)Ordered By: Dr. Antonio on 07-13-2022 H. pylori IgG Qn (S) 0.60 0.00-0.79 [facility] Comment on above: Result Units: Index Value Negative <0.80 Equivocal 0.80 - 0.89 Positive >0.89Performed at: [facility] [id number] Director: Adriano Nassar PhD, Phone: [phone] Serum IgA measurement (units /volume)Ordered By: Dr. Antonio on 07-13-2022 IgA Qn (S) 196 mg/dL 61-437 [facility] Serum or plasma albumin dominic urement (mass/volume)Ordered By: Dr. Antonio on 07-13-2022 Albumin [Mass/Vol] 3.4 g/dL 3.2-5.0 [facility] Serum or plasma albumin/glob ulin mass ratioOrdered By: Dr. Antonio on 07-13-2022 Albumin/Globulin [Mass ratio] 0.9 {ratio} 0.9-2.4 [facility] Serum or plasma calcium dominic urement (mass/volume)Ordered By: Dr. Antonio on 07-13-2022 Calcium [Mass/Vol] 8.9 mg/dL 8.5-10.1 [facility] Serum or plasma cholesterol in HDL measurement (mass/volume)Ordered By: Dr. Antonio on 07-13-2022 Cholesterol in HDL [Mass/Vol] 56 mg/dL >40 [facility] Comment on above: The drugs N-Acetylcy steine and Metamizole may falsely depress this assay. Reference Range HDL <40 mg/dL Low HDL Cholesterol HDL >or= 60 mg/dL High HDL Cholesterol Serum or plasma cholesterol in VLDL measurement (mass/volume)Ordered By: Dr. Antonio on 07-13-2022 Cholesterol in VLDL [Mass/Vol] 13 mg/dL 5-40 [facility] Serum or plasma creatinine m easurement (mass/volume)Ordered By: Dr. Antonio on 07-13-2022 Creatinine [Mass/Vol] 1.05 mg/dL 0.70-1.30 [facility] Comment on above: The validity of the calculated GFR & GFRAA in patients over 70 years has not been determined. Clinical correlation is essential. Serum or plasma low density lipoprotein (LDL) cholesterol measurement (mass/volume)Ordered By: Dr. Antonio on 07-13-2022 Cholesterol in LDL [Mass/Vol] 80 mg/dL 0-130 [facility] Serum or plasma urea nitroge n measurement (mass/volume)Ordered By: Dr. Antonio on 07-13-2022 Urea nitrogen [Mass/Vol] 26 mg/dL 7-18 [facility] Serum tissue transglutaminas e IgA antibody assay (units/volume)Ordered By: Dr. Antonio on 07-13-2022 tTG IgA Qn (S) <2 U/mL 0-3 [facility] Comment on above: Negative 0 - 3 Weak Positive 4 - 10 Positive >10 Tissue Transglutaminase (tTG) has been identified as the endomysial antigen. Studies have demonstr- ated that endomysial IgA antibodies have over 99% specificity for gluten sensitive enteropathy. Thin prep Papanicolaou smear with manual screeningOrdered By: Dr. Antonio on 07-13-2022 Thin prep Papanicolaou smear with manual screening 24 U/L 15-37 [facility] Thin prep Papanicolaou smear with manual screening 10 5-15 [facility] No Panel InformationOrdered By: Dr. Beyer on 05-08-2022 Prostate Specific Antigen Total < 0.01 ng/mL 0.0-4.0 [facility] Comment on above: This test was perfor med using the TPSA assay method for the[employer] chemistry system. Values obtained with differentassay methods cannot be used interchangably.When changing PSA assays in the course of monitoring apatient, additional sequential testing should be carriedout to confirm baseline values. Basophil percentageon 2021 Bilirubin [Mass/Vol] 0.80 mg/dL 0.20-1.00 [facility] Work Phone: Comment on above: For patients on eltr ombopag therapy, use of Dimension [place] TBIL is not recommended. Chloride [Moles/Vol] 108 mmol/L 98-107 [facility] Work Phone: Cholesterol [Mass/Vol] 149 mg/dL <200 [facility] Work Phone: Comment on above: <200 mg/dL Desirable 200-240 mg/dL Borderline >240 mg/dL High Risk Glucose [Mass/Vol] 100 mg/dL 74-106 [facility] Work Phone: Comment on above: Fasting Glucose resu lt from 100 to 125 mg/dL suggests IMPAIRED HOMEOSTASIS per A.D.A. criteria. Potassium [Moles/Vol] 3.9 mmol/L 3.5-5.1 [facility] Work Phone: Protein [Mass/Vol] 7.4 g/dL 6.4-8.2 [facility] Work Phone: Sodium [Moles/Vol] 139 mmol/L 136-145 [facility] Work Phone: Triglyceride [Mass/Vol] 56 mg/dL <199 [facility] Work Phone: Comment on above: The drugs N-Acetylcy steine and Metamizole may falsely depress this assay.Serum Triglycerides Reference Interval Normal <150 mg/dL Borderline high 150 - 199 mg/dL High 200 - 499 mg/dL Very High > or = 500 mg/dL WBC (Bld) [#/Vol] 5.6 10*3/uL 4.4-11.0 [facility] Work Phone: Blood erythrocytes count (nu mber/volume)on 01-15-2022 RBC (Bld) [#/Vol] 4.89 10*6/uL 4.6-6.2 [facility]: Blood hemoglobin measurement (mass/volume)on 01-15-2022 Hemoglobin (Bld) [Mass/Vol] 15.4 g/dL 13.0-16.5 [facility] Work Phone: Blood platelet mean volumeon 01-15-2022 Platelet mean volume (Bld) [Entitic vol] 9.3 fL 6.2-12.0 [facility] Work Phone: Determination of erythrocyte mean corpuscular volume (MCV)on 01-15-2022 MCV (RBC) [Entitic vol] 93.9 fL 80-94 [facility] Work Phone: Direct bilirubinon Bilirubin.direct [Mass/Vol] 0.17 mg/dL 0.00-0.30 [facility] Work Phone: Hematocrit Auto (Bld) [Volum e fraction]on 01-15-2022 Hematocrit (Bld) [Volume fraction] 45.9 % 40-54 [facility] Work Phone: Laboratory - Chemistry and C hemistry - challengeon 01-15-2022 ALP [Catalytic activity/Vol] 80 U/L 45-117 [facility] Work Phone: ALT [Catalytic activity/Vol] 20 U/L 16-61 [facility] Work Phone: [phone] CO2 [Moles/Vol] 26.0 mmol/L 21.0-32.0 [facility] Work Phone: [phone] Free T4 [Mass/Vol] 1.41 ng/dL 0.76-1.46 [facility] Work Phone: [phone] Globulin (S) [Mass/Vol] 3.7 g/dL 2.2-4.2 [facility] Work Phone: [phone] Magnesium [Mass/Vol] 2.2 mg/dL 1.6-2.6 [facility] Work Phone: [phone] Urea nitrogen/Creatinine [Mass ratio] 21.0 mg/mg 10-20 [facility] Work Phone: Laboratory - Hematology and Cell countson 01-15-2022 Erythrocyte distribution width (RBC) [Entitic vol] 48.0 fL 35.1-43.9 [facility] Work Phone: Erythrocyte distribution width (RBC) [Ratio] 14.0 % 11.6-14.6 [facility] Work Phone: MCH (RBC) [Entitic mass] 31.5 pg 27.0-32.0 [facility] Work Phone: MCHC Auto (RBC) [Mass/Vol]on 01-15-2022 MCHC (RBC) [Mass/Vol] 33.6 g/dL 32-36 [facility] Work Phone: No Panel Informationon 01-15 Estimated GFR (MDRD) Amer 91 mL/min >60 [facility] Work Phone: Comment on above: GFR Calc Estimated GFR (MDRD) Non-Af Amer 75 mL/min >60 [facility] Work Phone: Comment on above: Non- GFR Calc Thyroid Stimulating Hormone (TSH) 1.72 uIU/mL 0.358-3.74 [facility] Work Phone: Platelets bldon 01-15-2022 Platelets (Bld) [#/Vol] 217 10*3/uL 150-450 [facility] Work Phone: Serum or plasma albumin dominic urement (mass/volume)on 01-15-2022 Albumin [Mass/Vol] 3.7 g/dL 3.2-5.0 [facility] Work Phone: Serum or plasma calcium dominic urement (mass/volume)on 01-15-2022 Calcium [Mass/Vol] 9.3 mg/dL 8.5-10.1 [facility] Work Phone: Serum or plasma cholesterol in HDL measurement (mass/volume)on 01-15-2022 Cholesterol in HDL [Mass/Vol] 58 mg/dL >40 [facility] Work Phone: Comment on above: The drugs N-Acetylcy steine and Metamizole may falsely depress this assay. Reference Range HDL <40 mg/dL Low HDL Cholesterol HDL >or= 60 mg/dL High HDL Cholesterol Serum or plasma cholesterol in VLDL measurement (mass/volume)on 01-15-2022 Cholesterol in VLDL [Mass/Vol] 11 mg/dL 5-40 [facility] Work Phone: Serum or plasma creatinine m easurement (mass/volume)on 01-15-2022 Creatinine [Mass/Vol] 1.05 mg/dL 0.70-1.30 [facility] Work Phone: Comment on above: The validity of the calculated GFR & GFRAA in patients over 70 years has not been determined. Clinical correlation is essential. Serum or plasma low density lipoprotein (LDL) cholesterol measurement (mass/volume)on 01-15-2022 Cholesterol in LDL [Mass/Vol] 80 mg/dL 0-130 [facility] Work Phone: Serum or plasma urea nitroge n measurement (mass/volume)on 01-15-2022 Urea nitrogen [Mass/Vol] 22 mg/dL 7-18 [facility] Work Phone: Thin prep Papanicolaou smear with manual screeningon 01-15-2022 Thin prep Papanicolaou smear with manual screening 22 U/L 15-37 [facility] Work Phone: Thin prep Papanicolaou smear with manual screening 5 5-15 [facility] Work Phone: Basophil percentageon 2021 Bilirubin [Mass/Vol] 0.50 mg/dL 0.20-1.00 [facility] Work Phone: Comment on above: For patients on eltr ombopag therapy, use of Dim[place] TBIL is not recommended. Protein [Mass/Vol] 6.7 g/dL 6.4-8.2 [facility] Work Phone: Direct bilirubinon Bilirubin.direct [Mass/Vol] 0.17 mg/dL 0.00-0.30 [facility] Work Phone: Laboratory - Chemistry and C hemistry - challengeon 11-06-2021 ALP [Catalytic activity/Vol] 90 U/L 45-117 [facility] Work Phone: ALT [Catalytic activity/Vol] 23 U/L 16-61 [facility] Work Phone: Globulin (S) [Mass/Vol] 3.3 g/dL 2.2-4.2 [facility] Work Phone: Serum or plasma albumin dominic urement (mass/volume)on 11-06-2021 Albumin [Mass/Vol] 3.4 g/dL 3.2-5.0 [facility] Work Phone: Thin prep Papanicolaou smear with manual screeningon 11-06-2021 Thin prep Papanicolaou smear with manual screening 19 U/L 15-37 [facility] Work Phone: No Panel Informationon 11-04 Prostate Specific Antigen Total < 0.01 ng/mL 0.0-4.0 [facility] Work Phone: Comment on above: This test was perfor med using the TPSA assay method for the[facility] chemistry system. Values obtained with differentassay methods cannot be used interchangably.When changing PSA assays in the course of monitoring apatient, additional sequential testing should be carriedout to confirm baseline values. Laboratory - Microbiology an d Antimicrobial susceptibilityon 10-13-2021 SARS-CoV-2 (COVID-19) RNA HIPOLITO+probe Ql (Unsp spec) Not detected Not Detect [facility] Work Phone: Comment on above: Normal Reference Ran ge: Not DetectedMethod:(RT-PCR) real-time reverse transcriptase PCRLuminex JODY Instrument*The Food and Drug Administration (FDA) has issued an Emergency Use Authorization (EAU) for the JODY SARS-CoV-2 Assay for the rapid detection of the virus that causes COVID-19. This test has been validated, but the FDAs independent review of this validation is pending.*Negative results do not preclude infection and should not be used as the sole basis for treatment or patient management. Optimum specimen types and timing for peak viral levels during infections caused by SARS-CoV-2 have not been determined. Collection of multiple specimens from the same patient may be necessary to detect the virus. The possibility of a false negative result should be considered if the patient has clinical presentation or has had recent exposure. Laboratory - Chemistry and C hemistry - challengeon 09-12-2021 Free T4 [Mass/Vol] 1.02 ng/dL 0.76-1.46 [facility] Work Phone: No Panel Informationon 09-12 Thyroid Stimulating Hormone (TSH) 4.95 uIU/mL 0.358-3.74 [facility] Work Phone: Lab Report: Lipid Profileon 05-19-2017 Cholesterol 168 mg/dL Invalid Interpretation Code 200 [facility] Work Phone: [phone] HDL Cholesterol 63 mg/dL Invalid Interpretation Code [facility] Work Phone: [phone] LDL Cholesterol 89 mg/dL Invalid Interpretation Code 0-130 [facility] Work Phone: [phone] Triglyceride 79 mg/dL Invalid Interpretation Code [facility] Work Phone: [phone] very low density lipoproteins 16 mg/dL Invalid Interpretation Code 5-40 [facility] Work Phone: [phone] Lab Report: Liver Profileon 05-19-2017 Alanine aminotransferase (ALT) 23 U/L Invalid Interpretation Code 12-78 [facility] Work Phone: [phone] Albumin 3.5 g/dL Invalid Interpretation Code 3.4-5.0 [facility] Work Phone: [phone] Alkaline phosphatase (ALP) 77 U/L Invalid Interpretation Code 45-117 [facility] Work Phone: [phone] Aspartate aminotransferase (AST) 24 U/L Invalid Interpretation Code 15-37 [facility] Work Phone: [phone] Bilirubin (direct) 0.15 mg/dL Invalid Interpretation Code 0.00-0.30 [facility] Work Phone: [phone] Bilirubin (total) 0.60 mg/dL Invalid Interpretation Code 0.20-1.00 [facility] Work Phone: [phone] Globulin 3.9 g/dL Invalid Interpretation Code 2.2-4.2 [facility] Work Phone: [phone] Protein 7.4 g/dL Invalid Interpretation Code 6.4-8.2 [facility] [employer] [facility] Work Phone: [phone] 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-16-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 Left ventricular Ejection fraction 65 % Invalid Interpretation Code [facility] [facility] Work Phone: [phone] Lab Report: Lipid Profileon 11-17-2016 Cholesterol in HDL mass conc 57 mg/dL Invalid Interpretation Code [facility] [facility] [employer] [facility] Work Phone: [phone] Cholesterol in LDL mass conc 101 mg/dL Invalid Interpretation Code 0-130 [facility] [employer] [facility] Work Phone: [phone] Cholesterol mass conc 182 mg/dL Invalid Interpretation Code 200 [facility] [employer] [facility] Work Phone: [phone] Lipoprotein.pre-beta mass conc 24 mg/dL Invalid Interpretation Code 5-40 [facility] [employer] [facility] Work Phone: [phone] Triglyceride mass conc 122 mg/dL Invalid Interpretation Code [facility] [employer] [facility] Work Phone: [phone] Lab Report: Liver Profileon 11-17-2016 Albumin mass conc 3.6 g/dL Invalid Interpretation Code 3.4-5.0 [facility] [employer] [facility] Work Phone: [phone] Alkaline phosphatase (ALP) 80 U/L Invalid Interpretation Code 45-117 [facility] [employer] [facility] Work Phone: [phone] ALP enzyme act/vol (Bld) 80 U/L 45-117 [facility] [facility] Work Phone: [phone] ALT enzyme act/vol 25 U/L Invalid Interpretation Code 12-78 [facility] Work Phone: [phone] AST enzyme act/vol 26 U/L Invalid Interpretation Code 15-37 [facility] Work Phone: [phone] Bilirubin mass conc 1.00 mg/dL Invalid Interpretation Code 0.20-1.00 [facility] Work Phone: [phone] Bilirubin.direct mass conc 0.16 mg/dL Invalid Interpretation Code 0.00-0.30 [facility] Work Phone: [phone] Globulin 4.0 g/dL High 2.3-3.5 [facility] Work Phone: [phone] Globulin mass conc (S) 4.0 g/dL High 2.3-3.5 [facility] Work Phone: [phone] Protein mass conc 7.6 g/dL Invalid Interpretation Code 6.4-8.2 [facility] Work Phone: [phone] Office Visiton 11-16-2016 Documentation of current medications (procedure) Done Invalid Interpretation Code [facility] Work Phone: [phone] Protein mass conc Done [facility] Work Phone: [phone] Append: Thoracic Referralon 05-18-2016 Clinical consultation report (record artifact) [id number]^02/25/2016 Invalid Interpretation Code [facility] Work Phone: [phone] Clinical Lists 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: 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 05-12-2016 Left ventricular Ejection fraction 60-65 Invalid Interpretation Code [facility] Work Phone: [phone] Office Visiton 05-12-2016 Protein mass conc Done [facility] Work Phone: [phone] Tobacco smoking status NHIS Tobacco smoking status NHIS Invalid Interpretation Code [facility] Work Phone: [phone] Tobacco smoking status NHIS Former smoker [facility] Work Phone: [phone] Tobacco use [facility] Former smoker Invalid Interpretation Code [facility] Work Phone: [phone] Replaced Document: Debby Price CG Observationson 05-12-2016 EKG QRS axis 94 deg Invalid Interpretation Code [facility] Work Phone: [phone] electrocardiogram interpretation Sinus Rhythm -Nonspecific QRS widening and right axis -consider right ventricular hypertrophy. -Left atrial enlargement. ABNORMAL Invalid Interpretation Code [facility] Work Phone: [phone] use only - for [employer] import when terms are not otherwise specified 464 ms Invalid Interpretation Code [facility] Work Phone: [phone] Interpretation Sinus Rhythm -Nonspe cific QRS widening and right axis -consider right ventricular hypertrophy. -Left atrial enlargement. ABNORMAL Invalid Interpretation Code [facility] Work Phone: P Molino 71 deg Invalid Interpretation Code [facility] Work Phone: P wave axis, electrocardiogram 71 deg Invalid Interpretation Code [facility] Work Phone: [place] Interval 188 ms Invalid Interpretation Code [facility] Work Phone: [place] interval, electrocardiogram 188 ms Invalid Interpretation Code [facility] Work Phone: Pulse (Heart Rate) 90 /min Invalid Interpretation Code [facility] Work Phone: QRS axis, electrocardiogram 94 deg Invalid Interpretation Code [facility] Work Phone: QRS Duration 110 ms Invalid Interpretation Code [facility] Work Phone: QRS duration, electrocardiogram 110 ms Invalid Interpretation Code [facility] Work Phone: QT Interval new path ms Invalid Interpretation Code [facility] Work Phone: QT interval, electrocardiogram new path ms Invalid Interpretation Code [facility] Work Phone: QTc [place] 464 ms Invalid Interpretation Code [facility] Work Phone: T Molino 56 deg Invalid Interpretation Code [facility] Work Phone: T wave axis, electrocardiogram 56 deg Invalid Interpretation Code [facility] Phone: [phone] Lab Report: Lipid Profileon 02-26-2016 Cholesterol in HDL mass conc 55 mg/dL Invalid Interpretation Code [facility] Phone: [phone] Cholesterol in LDL mass conc 72 mg/dL Invalid Interpretation Code 0-130 [facility] Work Phone: Cholesterol mass conc 140 mg/dL Invalid Interpretation Code 200 [facility] Work Phone: Lipoprotein.pre-beta mass conc 13 mg/dL Invalid Interpretation Code 5-40 [facility] Work Phone: [phone] Triglyceride mass conc 65 mg/dL Invalid Interpretation Code [facility] Phone: [phone] Lab Report: Liver Profileon 02-26-2016 Albumin mass conc 3.6 g/dL Invalid Interpretation Code 3.4-5.0 [facility] Work Phone: [phone] Alkaline phosphatase (ALP) 99 U/L Invalid Interpretation Code 50-136 [facility] Work Phone: [phone] ALP enzyme act/vol (Bld) 99 U/L 50-136 [facility] Work Phone: [phone] ALT enzyme act/vol 30 U/L Invalid Interpretation Code 12-78 [facility] Work Phone: [phone] AST enzyme act/vol 26 U/L Invalid Interpretation Code 15-37 [facility] Work Phone: [phone] Bilirubin mass conc 0.70 mg/dL Invalid Interpretation Code 0.20-1.00 [facility] Work Phone: [phone] Bilirubin.direct mass conc 0.14 mg/dL Invalid Interpretation Code 0.00-0.30 [facility] Work Phone: [phone] Globulin 3.8 g/dL High 2.3-3.5 [facility] Work Phone: [phone] Globulin mass conc (S) 3.8 g/dL High 2.3-3.5 [facility] Work Phone: [phone] Protein mass conc 7.4 g/dL Invalid Interpretation Code 6.4-8.2 [facility] Work Phone: [phone] Lab Report: Basic Metabolic Profile (BMP)on 01-21-2016 Anion gap 5 mmol/L Invalid Interpretation Code 5-15 [facility] Work Phone: [phone] Anion gap molar conc 5 mmol/L 5-[address] [facility] Work Phone: [phone] Calcium mass conc 8.9 mg/dL Invalid Interpretation Code 8.5-10.1 [facility] Work Phone: [phone] Chloride molar conc 105 mmol/L Invalid Interpretation Code 98-107 [facility] Work Phone: [phone] CO2 25.0 mmol/L Invalid Interpretation Code 21.0-32.0 [facility] Work Phone: [phone] CO2 ppres (BldV) 25.0 mmol/L 21.0-32.0 [facility] Work Phone: Creatinine mass conc 0.97 mg/dL Invalid Interpretation Code 0.70-1.30 [facility] Work Phone: [phone] eGFR (non-black) 101 mL/min/{1.73_m2} Invalid Interpretation Code >60 [facility] Work Phone: [phone] EST GFR - AA 101 mL/min >60 [facility] Work Phone: [phone] GFR/1.73 sq M predicted among non-blacks MDRD vol rate/area (S/P/Bld) 83 mL/min/{1.73_m2} Invalid Interpretation Code >60 [facility] Work Phone: [phone] Glucose 101 mg/dL Invalid Interpretation Code 70-110 [facility] Work Phone: [phone] Glucose mass conc 101 mg/dL Invalid Interpretation Code 70-110 [facility] Work Phone: [phone] Potassium molar conc 3.6 mmol/L Invalid Interpretation Code 3.5-5.1 [facility] Work Phone: [phone] Sodium molar conc 135 mmol/L Low 136-145 [facility] Work Phone: [phone] Urea nitrogen mass conc 23 mg/dL High 7-18 [facility] Work Phone: [phone] Urea nitrogen/Creatinine mass ratio 23.7 RATIO High 10-20 [facility] Work [phone] Lab Report: CBC-Complete Blo od Cnt No Diffon 01-21-2016 Erythrocyte distribution width Ratio (RBC) 14.3 % 11.6-14.6 [facility] Work [phone] Erythrocyte distribution width Ratio (RBC) 46.9 fL High 35.1-43.9 [facility] Work [phone] Erythrocytes (RBC) 4.46 10*6/uL Low 4.6-6.[address] [facility] Work Phone: [phone] Hematocrit (HCT) 41.8 % Invalid Interpretation Code 40-54 [facility] Work Phone: [phone] Hematocrit Volume Fraction (Bld) 41.8 % 40-54 [facility] Work Phone: [phone] Hemoglobin mass conc (Bld) 14.5 g/dL Invalid Interpretation Code 13.0-16.5 [facility] Work Phone: [phone] MCH 32.5 pg High 27.0-32.0 [facility] Work Phone: [phone] MCH Entitic mass (RBC) 32.5 pg High 27.0-32.0 [facility] Work Phone: [phone] MCHC 34.7 G/GL Invalid Interpretation Code 32-36 [facility] Work Phone: [phone] MCHC mass conc (RBC) 34.7 G/GL 32-[address] [facility] Work Phone: [phone] MCV 93.7 fL Invalid Interpretation Code 80-94 [facility] Work Phone: [phone] MCV Entitic volume (RBC) 93.7 fL 80-94 [facility] Work Phone: [phone] Platelet mean volume Entitic volume (Bld) 9.3 fL 6.2-12.0 [facility] Work Phone: [phone] Platelets 210 10*3/mm3 Invalid Interpretation Code 150-450 [facility] Work Phone: [phone] Platelets #/vol (Bld) 210 10*3/mm3 150-450 [facility] Work Phone: [phone] PMV by Genna 9.3 fL Invalid Interpretation Code 6.2-12.0 [facility] Work Phone: [phone] RBC #/vol (Bld) 4.46 10*6/uL Low 4.6-6.2 [facility] Work Phone: [phone] RDW SD 46.9 fL High 35.1-43.9 [facility] Work Phone: [phone] RDW-CA 14.3 % Invalid Interpretation Code 11.6-14.6 [facility] Work Phone: [phone] red blood cell distribution width, size density 46.9 fL High 35.1-43.9 [facility] Work Phone: [phone] WBC #/vol (Bld) 6.2 10*3/uL 4.4-11.0 [facility] Work Phone: [phone] WBC (Leukocytes) 6.2 10*3/uL Invalid Interpretation Code 4.4-11.0 [facility] Work Phone: [phone] Lab Report: Partial Thrombop last Timeon 01-21-2016 aPTT Coag time (Bld) 30.9 s Invalid Interpretation Code 24.1-36.2 [facility] Work Phone: [phone] Lab Report: Prothrombin Time w/INRon 01-21-2016 INR Coag RelTime (PPP) 1.0 {INR} Invalid Interpretation Code [facility] Work Phone: [phone] INR in blood by coagulation 1.0 {INR} Invalid Interpretation Code [facility] Work Phone: [phone] Prothrombin time (PT) Coag time (PPP) 13.2 s Invalid Interpretation Code 11.7-14.9 [facility] Work Phone: [phone] Vital Signs Date Time Vital Sign Value Performing Clinician Dolly jeffers 01-22-2023 08:49-0400 Body height 190.[address] Edgar Antonio Work Phone: [facility] 01-22-2023 08:49-0400 Body mass index (BMI) [Ratio] 25.3 kg/m2 Dr. Edgar Antonio Work Phone: [facility] 01-22-2023 08:49-0400 Body weight 92.[address] Edgar Antonio Work Phone: [facility] 01-22-2023 08:49-0400 Diastolic blood pressure 76 mm[Hg] Dr. Edgar Antonio Work Phone: [facility] 01-22-2023 08:49-0400 Heart rate 80 /min Dr. Edgar Antonio Work Phone: [facility] 01-22-2023 08:49-0400 Respiratory rate 18 /min Dr. Edgar Antonio Work Phone: [facility] 01-22-2023 08:49-0400 SaO2% (BldA) [Mass fraction] 97 % Dr. Edgar Antonio Work Phone: [facility] 01-22-2023 08:49-0400 Systolic blood pressure 121 mm[Hg] Dr. Edgar Antonio Work Phone: [facility] 07-07-2022 10:32-0500 Body height 190.[address] Edgar Antonio Work Phone: [phone] [place] [address] 07-07-2022 10:32-0500 Body mass index (BMI) [Ratio] 25.3 kg/m2 Dr. Edgar Antonio Work Phone: [phone] [address] 07-07-2022 10:32-0500 Body weight 92.[address] Edgar Antonio Work Phone: [phone] [address] 07-07-2022 10:32-0500 Diastolic blood pressure 74 mm[Hg] Dr. Edgar Antonio Work Phone: [phone] [place] [address] 07-07-2022 10:32-0500 Heart rate 90 /min Dr. Edgar Antonio Work Phone: [phone] [address] 07-07-2022 10:32-0500 Respiratory rate 20 /min Dr. Edgar Antonio Work Phone: [phone] [place] [address] 07-07-2022 10:32-0500 SaO2% (BldA) [Mass fraction] 97 % Dr. Edgar Antonio Work Phone: [facility] 07-07-2022 10:32-0500 Systolic blood pressure 121 mm[Hg] Dr. Edgar Antonio Work Phone: [facility] 01-08-2022 10:24-0400 Body height 190.[address] Edgar Antonio Work Phone: [facility] Work Phone: 01-08-2022 10:24-0400 Body mass index (BMI) [Ratio] 24.9 kg/m2 Dr. Edgar Antonio Work Phone: [facility] Work Phone: 01-08-2022 10:24-0400 Body weight 90.[address] Edgar Antonio Work Phone: [facility] Work Phone: 01-08-2022 10:24-0400 Diastolic blood pressure 58 mm[Hg] Dr. Edgar Antonio Work Phone: [facility] Work Phone: 01-08-2022 10:24-0400 Heart rate 96 /min Dr. Edgar Antonio Work Phone: [facility] Work Phone: 01-08-2022 10:24-0400 Respiratory rate 18 /min Dr. Edgar Antonio Work Phone: [facility] Work Phone: 01-08-2022 10:24-0400 Systolic blood pressure 108 mm[Hg] Dr. Edgar Antonio Work Phone: [facility] Work Phone: 11-16-2016 16:24-0400 BMI (Body Mass Index) 24.75 kg/m2 [facility] Work Phone: 11-16-2016 16:24-0400 BP Diastolic 60 mm[Hg] [facility] Work Phone: 11-16-2016 16:24-0400 BP Systolic 110 mm[Hg] [facility] Work Phone: 11-16-2016 16:24-0400 Height 190.5 cm [facility] Work Phone: 11-16-2016 16:24-0400 Pulse (Heart Rate) 108 /min [facility] Work Phone: 11-16-2016 16:24-0400 Respiratory Rate 18 /min [facility] Work Phone: 11-16-2016 16:24-0400 Weight 89.81 kg Rosaline Scherer [facility] Work Phone: 05-12-2016 15:28-0500 Heart rate 90 /min Harumi DeFinis [facility] Work Phone: 05-12-2016 15:19-0500 BMI (Body Mass Index) 24.25 kg/m2 Harumi DeFinis [facility] Work Phone: 05-12-2016 15:19-0500 BP Diastolic 84 mm[Hg] Harumi DeFinis [facility] Work Phone: 05-12-2016 15:19-0500 BP Systolic 124 mm[Hg] Harumi DeFinis [facility] Work Phone: 05-12-2016 15:19-0500 BSA (Body Surface Area) 2.17 m2 Harumi DeFinis [facility] Work Phone: 05-12-2016 15:19-0500 Height 190.5 cm Harumi DeFinis [facility] Work Phone: 05-12-2016 15:19-0500 Pulse (Heart Rate) 94 /min Harumi DeFinis [facility] Work Phone: 05-12-2016 15:19-0500 Pulse Oximetry 96 % Harumi DeFinis [facility] Work Phone: 05-12-2016 15:19-0500 Respiratory Rate 20 /min Harumi DeFinis [facility] Work Phone: 05-12-2016 15:19-0500 Weight 88 kg Harumi DeFinis [facility] Work Phone: 02-21-2016 14:05-0400 Height 190.5 cm Harumi DeFinis [facility] Work Phone: 02-21-2016 14:05-0400 Pulse Oximetry 98 % Harumi DeFinis [facility] Work Phone: 02-21-2016 14:05-0400 Weight 90 kg Harumi DeFinis [facility] Work Phone: 12-31-2015 14:55-0400 BP Diastolic 76 mm[Hg] Slava Madrid [facility] Work Phone: 12-31-2015 14:55-0400 BP Systolic 110 mm[Hg] Slava Madrid [facility] Work Phone: 12-31-2015 14:55-0400 Pulse (Heart Rate) 100 /min Slava Madrid [facility] Work Phone: Encounters Encounter Date Encounter Type Care Provider Facility Start: 02-09-2025 ambulatory Tom Alberto lity:[facility] Start: 01-02-2025 End: 01-02-[address] Tom Antonio MD Work Phone: -Pulmonary Services/Neurology Start: 01-02-2025 End: 01-02-[address] Tom Antonio MD -Pulmonary Services/Neurology Work Phone: Start: 01-02-2025 End: 01-02-2025 ambulatory Tom Antonio Facility:[facility] Start: 12-04-2024 End: 12-04-[address] Tom Antonio MD Work Phone: -Laboratory [facility] Start: 12-04-2024 End: 12-04-[address] Tom Antonio MD -Laboratory [facility] Start: 12-04-2024 End: 12-04-2024 ambulatory Tom Antonio Facility:[facility] Start: 05-26-2024 ambulatory Tom Alberto lity:[facility] Start: 05-16-2024 ambulatory Tom Alberto lity:[facility] Start: 05-16-2024 End: 05-16-2024 ambulatory Tom Antonio Facility:[facility] Start: 05-12-2024 End: 05-12-2024 ambulatory Tom Antonio Facility:[facility] Start: 03-29-2024 ambulatory Tom Alberto lity:[facility] Start: 03-24-2024 ambulatory Tom Antonio Faci lity:[facility] Start: 03-24-2024 End: 03-24-2024 ambulatory Tom Antonio Facility:[facility] Start: 03-16-2024 End: 03-16-2024 ambulatory Tom Antonio Facility:[facility] Start: 03-08-2024 Encounter for other preprocedural examination Sohail Malloy [facility] Start: 03-01-2024 End: 03-01-2024 ambulatory Tom Antonio Facility:[facility] Start: 02-23-2024 End: 02-24-2024 ambulatory Tom Antonio Facility:[facility] Start: 02-23-2024 ambulatory Tom Hani lity:[facility] Start: 02-22-2024 End: 02-22-2024 ambulatory Tom Antonio Facility:[facility] Start: 07-15-2023 End: 07-15-2023 ambulatory [facility] Work Phone: Start: 07-15-2023 End: 07-15-2023 Patient encounter procedure [facility] Start: 05-11-2023 End: 05-11-[address] Edgar Antonio Work Phone: [facility] Work Phone: Start: 05-11-2023 End: 05-11-[address] Edgar Antonio Work Phone: [facility]-Laboratory Work Phone: Start: 03-26-2023 End: 03-26-[address] Edgar Antonio Work Phone: [facility] Work Phone: Start: 03-26-2023 End: 03-26-[address] Edgar Antonio Work Phone: [facility] Work Phone: Start: 01-22-2023 End: 01-22-[address] Edgar Antonio Work Phone: [facility] Work Phone: Start: 11-05-2022 End: 11-05-2022 ambulatory [facility] Work Phone: Start: 11-05-2022 End: 11-05-2022 Patient encounter procedure [facility] Start: 09-21-2022 End: 09-21-[address] Edgar Antonio Work Phone: [facility] Work Phone: Start: 09-21-2022 End: 09-21-[address] Edgar Antonio Work Phone: [facility] Start: 08-26-2022 End: 08-26-[address] Edgar Antonio Work Phone: [facility] Work Phone: Start: 08-26-2022 End: 08-26-[address] Edgar Antonio Work Phone: [facility]-Radiology, [facility] Start: 07-14-2022 End: 07-14-[address] Edgar Antonio Work Phone: [facility] Work Phone: Start: 07-14-2022 End: 07-14-[address] Edgar Antonio Work Phone: [facility] Start: 07-13-2022 End: 07-13-[address] Edgar Antonio Work Phone: [facility] Work Phone: Start: 07-13-2022 End: 07-13-[address] Edgar Antonio Work Phone: [facility] Start: 07-07-2022 End: 07-07-[address] Edgar Antonio Work Phone: [facility] Start: 05-08-2022 End: 05-08-[address] Edgar Antonio Work Phone: [facility] Work Phone: Start: 05-08-2022 End: 05-08-[address] Edgar Antonio Work Phone: [facility]-Laboratory Start: 04-06-2022 End: 04-06-[address] Edgar Antonio Work Phone: [facility] Work Phone: Start: 04-06-2022 End: 04-06-[address] Edgar Antonio Work Phone: [facility]-Laboratory, Specimen Start: 03-31-2022 End: 03-31-[address] Edgar Antonio Work Phone: [facility] Work Phone: Start: 03-31-2022 End: 03-31-[address] Edgar Antonio Work Phone: [facility]-Laboratory, Specimen Start: 01-23-2022 Non-patient / Non-visit Dr. Danyelle Antonio Work Phone: [facility] Start: 01-23-2022 End: 01-23-[address] Edgar Antonio Work Phone: [facility] Work Phone: Start: 01-23-2022 End: 01-23-[address] Edgar Antonio Work Phone: [facility]-Cardiovascul ar Services Start: 01-15-2022 End: 01-15-[address] Edgar Antonio Work Phone: [facility] Work Phone: Start: 01-15-2022 End: 01-15-[address] Edgar Antonio Work Phone: [facility] Start: 01-08-2022 End: 01-08-[address] Edgar Antonio Work Phone: [facility] Start: 11-06-2021 End: 11-06-2021 Patient encounter procedure [facility] Start: 11-04-2021 End: 11-04-2021 Patient encounter procedure [facility] Start: 10-13-2021 End: 10-13-2021 Patient encounter procedure [facility] Start: 09-12-2021 End: 09-12-2021 Patient encounter procedure [facility] Start: 08-19-2020 End: 08-19-2020 Patient encounter procedure [facility] Start: 07-25-2020 End: 07-25-2020 Patient encounter procedure [facility] Start: 05-08-2016 End: 05-09-2016 [facility] Facility:[facility] Procedures Date Procedure Procedure Detail Performing Clinician Start: 03-26-[address] Edgar sheffield Work Phone: Start: 08-26-[address] Edgar Antonio Work Phone: Start: 07-13-2022 Diagnostic radiography of abdomen Dr. Edgar Antonio Work Phone: Start: 05-19-2017 End: 05-19-2017 *Hepatic [...] Phone: Start: 05-12-2016 End: 05-13-2016 Referral to wood carving machine operator Joey Dempsey MD Work Phone: Start: 05-12-2016 End: 05-12-2016 DENNIS Dempsey MD Work Phone: Start: 05-12-2016 End: 05-27-2016 Echocardiography Joey Dempsey MD Work Phone: Start: 05-12-2016 End: 05-12-2016 Electrocardiogram, complete Joey lynn MD Work Phone: Start: 05-12-2016 End: 05-12-2016 Follow Up Appt 6 months Joey Dempsey MD Work Phone: Start: 05-12-2016 End: 05-13-2016 Referral to wood carving machine operator Joey Dempsey MD Work Phone: Start: 05-12-2016 Replacement of aortic valve Aortic valve replacement Slava Madrid Start: 03-03-2016 End: 11-16-2016 *Hepatic Function Panel [...] MD Work Phone: Start: 02-10-2016 End: 02-10-2016 GALINDON Joey Dempsey MD Work Phone: Start: 02-10-2016 [...] physician Joey Dempsey MD Work Phone: Start: 01-29-2016 [...] Author Start: 06-14-2017 End: 06-14-2017 Appointment Appointment [facility] Work Phone: Start: 05-19-2017 End: 11-18-2016 *Hepatic Function Panel *Hepatic Function Panel [facility] Work Phone: Start: 05-19-2017 End: 11-18-2016 Lipid panel [AGGREGATE] *Lipid Profile CC PCP [facility] Work Phone: Start: 05-19-2017 End: 05-19-2017 *Hepatic Function Panel *Hepatic Function Panel [facility] Work Phone: Start: 05-19-2017 End: 05-19-2017 Lipid panel [AGGREGATE] *Lipid Profile CC PCP [facility] Work Phone: Start: 04-14-2017 End: 11-17-2016 Echocardiography Echocardiogram (complete) [facility] Work Phone: Start: 04-14-2017 End: 11-17-2016 Echocardiography Echocardiogram (complete) [facility] Work Phone: Start: 11-16-2016 End: 11-16-2016 Appointment Appointment [facility] Work Phone: Start: 11-16-2016 End: 11-17-2016 *Hepatic Function Panel *Hepatic Function Panel [facility] Work Phone: Start: 11-16-2016 End: 11-16-2016 Cardiac Rehab Cardiac Rehab Rehab Cardiac Pulmonary, [address] [place], [address] [facility] Work Phone: Start: 11-16-2016 End: 11-16-2016 DENNIS COLLINS [facility] Work Phone: Start: 11-16-2016 End: 11-16-2016 Follow Up Appt 6 months Follow Up Appt 6 months [facility] Work Phone: Start: 11-16-2016 End: 11-17-2016 Lipid panel [AGGREGATE] *Lipid Profile CC PCP [facility] Work Phone: Start: 11-16-2016 End: 11-17-2016 *Hepatic Function Panel *Hepatic Function Panel [facility] Work Phone: Start: 11-16-2016 End: 11-16-2016 Cardiac Rehab Cardiac Rehab [facility], [address] [place], [address] [facility] Work Phone: Start: 11-16-2016 End: 11-16-2016 DENNIS COLLINS [facility] Work Phone: Start: 11-16-2016 End: 11-16-2016 Follow Up Appt 6 months Follow Up Appt 6 months [facility] Work Phone: Start: 11-16-2016 End: 11-17-2016 Lipid panel [AGGREGATE] *Lipid Profile CC PCP [facility] Work Phone: Start: 05-12-2016 End: 05-18-2016 Cardiac Rehab Cardiac Rehab [address] [place], [address] [employer] Work Phone: Start: 05-12-2016 End: 05-12-2016 DJN DJN [facility] Work Phone: Start: 05-12-2016 End: 05-12-2016 Ecg routine ecg w/least 12 lds w/i&r EKG (In office) [employer] Phone: Start: 05-12-2016 End: 05-12-2016 Echocardiography Echocardiogram (complete) [employer] Phone: Start: 05-12-2016 End: 05-12-2016 Follow Up Appt 6 months Follow Up Appt 6 months [employer] Phone: Start: 05-12-2016 End: 05-18-2016 Cardiac Rehab Cardiac Rehab [address] [place], [address] [employer] Phone: Start: 05-12-2016 End: 05-12-2016 DJKee GALINDOKee [employer] Work Phone: Start: 05-12-2016 End: 05-12-2016 Echocardiography Echocardiogram (complete) [employer] Phone: Start: 05-12-2016 End: 05-12-2016 Electrocardiogram, complete EKG (In office) [employer] Phone: Start: 05-12-2016 End: 05-12-2016 Follow Up Appt 6 months Follow Up Appt 6 months [employer] Phone: Start: 03-03-2016 End: 11-16-2016 *Hepatic Function Panel *Hepatic Function Panel [facility] Work Phone: Start: 03-03-2016 End: 11-16-2016 Lipid panel [AGGREGATE] *Lipid Profile CC PCP [facility] Work Phone: Start: 03-03-2016 End: 11-16-2016 *Hepatic Function Panel *Hepatic Function Panel [facility] Work Phone: Start: 03-03-2016 End: 11-16-2016 Lipid panel [AGGREGATE] *Lipid Profile CC PCP [facility] Work Phone: Start: 02-25-2016 End: 04-20-2016 DJN GALINDON [facility] Work Phone: Start: 02-25-2016 End: 04-20-2016 Follow Up Appt 2 months Follow Up Appt 2 months [facility] Work Phone: Start: 02-25-2016 End: 05-18-2016 Thoracic Surgery Referral Thoracic Surgery Referral Cosme Leon MD, [address], [place], [address] [facility] Work Phone: Start: 02-25-2016 End: 04-20-2016 DJN DENNIS [facility] Work Phone: Start: 02-25-2016 End: 04-20-2016 Follow Up Appt 2 months Follow Up Appt 2 months [facility] Work Phone: Start: 02-25-2016 End: 05-18-2016 Thoracic Surgery Referral Thoracic Surgery Referral Cosme Leon MD, [address], [place], [address] [facility] Work Phone: Start: 02-24-2016 End: 02-27-2016 *Hepatic Function Panel *Hepatic Function Panel [facility] Work Phone: Start: 02-24-2016 End: 02-27-2016 Lipid panel [AGGREGATE] *Lipid Profile CC PCP [facility] Work Phone: Start: 02-24-2016 End: 02-27-2016 *Hepatic Function Panel *Hepatic Function Panel [facility] Work Phone: Start: 02-24-2016 End: 02-27-2016 Lipid panel [AGGREGATE] *Lipid Profile CC PCP [facility] Work Phone: Start: 02-21-2016 End: 02-21-2016 DMB DMB [facility] Work Phone: Start: 02-21-2016 End: 02-21-2016 Follow Up Appt 1 month Follow Up Appt 1 month [facility] Work Phone: Start: 02-21-2016 End: 02-21-2016 Pulmonary stress test/simple Pulmonary stress testing; simple (eg, 6-minute walk) [facility] Work Phone: Start: 02-21-2016 End: 02-21-2016 DMB DMB [facility] Work Phone: Start: 02-21-2016 End: 02-21-2016 Follow Up Appt 1 month Follow Up Appt 1 month [facility] Work Phone: Start: 02-21-2016 End: 02-21-2016 Pulmonary stress test/simple Pulmonary stress testing; simple (eg, 6-minute walk) [facility] Work Phone: Start: 02-10-2016 End: 02-10-2016 DENNIS COLLINS [facility] Work Phone: Start: 02-10-2016 End: 02-10-2016 Ecg routine ecg w/least 12 lds w/i&r EKG (In office) [facility] Work Phone: Start: 02-10-2016 End: 02-10-2016 Follow Up Appt 2 months Follow Up Appt 2 months [facility] Work Phone: Start: 02-10-2016 End: 02-10-2016 DENNIS COLLINS [facility] Work Phone: Start: 02-10-2016 End: 02-10-2016 Electrocardiogram, complete EKG (In office) [facility] Work Phone: Start: 02-10-2016 End: 02-10-2016 Follow Up Appt 2 months Follow Up Appt 2 months [facility] Work Phone: Start: 01-29-2016 End: 01-29-2016 Pulmonary Referral Pulmonary Referral Marcial Minaya, [facility] [place], [address], [place], [address] [facility] Work Phone: Start: 01-29-2016 End: 01-29-2016 Pulmonary Referral Pulmonary Referral Marcial Minaya, [facility] [place], [address], [place], [address] [facility] Work Phone: Start: 01-21-2016 End: 01-21-2016 *BMP *BMP [facility] Work Phone: Start: 01-21-2016 End: 01-21-2016 aPTT *PTT-Partial Thromboplastin Time [facility] Work Phone: Start: 01-21-2016 End: 01-21-2016 CBC W Auto Differential panel - Blood *CBC without Diff [facility] Work Phone: Start: 01-21-2016 End: 02-18-2016 Chest x-ray X-Ray, Chest, PA & Lateral [facility] Work Phone: Start: 01-21-2016 End: 01-21-2016 INR Coag RelTime (PPP) *PT/INR [facility] Work Phone: Start: 01-21-2016 End: 01-21-2016 *BMP *BMP [facility] Work Phone: Start: 01-21-2016 End: 01-21-2016 aPTT *PTT-Partial Thromboplastin Time [facility] Work Phone: Start: 01-21-2016 End: 01-21-2016 aPTT Coag time (PPP) *PTT-Partial Thromboplastin Time [facility] Work Phone: Start: 01-21-2016 End: 01-21-2016 CBC W Auto Differential panel - Blood *CBC without Diff [facility] [facility] [employer] [facility] [employer] Work Phone: Start: 01-21-2016 End: 02-18-2016 Chest x-ray X-Ray, Chest, PA & Lateral [employer] Work Phone: Start: 01-21-2016 End: 01-21-2016 Coagulation factor induced.INR assay in platelet poor plasma *PT/INR [facility] Work Phone: Start: 12-31-2015 End: 01-22-2016 *Hepatic Function Panel *Hepatic Function Panel [facility] Work Phone: Start: 12-31-2015 End: 01-28-2016 DENNIS COLLINS [facility] Work Phone: Start: 12-31-2015 End: 01-28-2016 Ecg routine ecg w/least 12 lds w/i&r EKG (In office) [employer] Work Phone: Start: 12-31-2015 End: 01-28-2016 Follow Up Appt 1 month Follow Up Appt 1 month [employer] Work Phone: Start: 12-31-2015 End: 01-22-2016 Left & Right Heart Cath Left & Right Heart Cath [facility] Work Phone: Start: 12-31-2015 End: 01-22-2016 Lipid panel [AGGREGATE] *Lipid Profile CC PCP [facility] Work Phone: Start: 12-31-2015 End: 12-31-2015 Pulmonary Function Test - complete Pulmonary Function Test - complete [facility] Work Phone: Start: 12-31-2015 End: 01-27-2016 Transesophageal echocardiogram (MATT) Transesophageal echocardiogram (MATT) [employer] Work Phone: Start: 12-31-2015 End: 01-22-2016 *Hepatic Function Panel *Hepatic Function Panel [facility] Work Phone: Start: 12-31-2015 End: 01-28-2016 DJN DJN [facility] Work Phone: Start: 12-31-2015 End: 01-28-2016 Electrocardiogram, complete EKG (In office) [facility] Work Phone: Start: 12-31-2015 End: 01-28-2016 Follow Up Appt 1 month Follow Up Appt 1 month [facility] Work Phone: Start: 12-31-2015 End: 01-22-2016 Left & Right Heart Cath Left & Right Heart Cath [facility] Work Phone: Start: 12-31-2015 End: 01-22-2016 Lipid panel [AGGREGATE] *Lipid Profile CC PCP [facility] Work Phone: Start: 12-31-2015 End: 12-31-2015 Pulmonary Function Test - complete Pulmonary Function Test - complete [facility] Work Phone: Start: 12-31-2015 End: 01-27-2016 Transesophageal echocardiogram (MATT) Transesophageal echocardiogram (MATT) [facility] Work Phone: Beef IgE Ab [Units/v olume] in Serum [facility] Chocolate IgE Ab [Units/volume] in Serum [facility] [place] IgE Ab [Units/v olume] in Serum [facility] Cow milk IgE Ab [Units/volume] in Serum [facility] Fish RAST [facility] Patient Education [facility] Work Phone: Peanut IgE Ab [Units/volume] in Serum [facility] Pork IgE Ab [Units/v olume] in Serum [facility] Soybean IgE Ab [Units/volume] in Serum [facility] US Heart [facility] Work Phone: Wheat IgE Ab [Units/volume] in Serum [facility] Whole Egg IgE Ab [Units/volume] in Serum [facility] Immunizations Immunization Date Immunization Notes Care Provider Kimberley [facility] 03-31-2020 Influenza virus vaccine [facility] Payers Date Payer Category Payer Self-pay [id number] 2021 Medicare [id number] 2021 Unknown [id number] 2015 Unknown [id number] Unknown [id number] 2.16.8 [id number] Unknown [id number] 2.16.8 [id number] Unknown [id number] 2.16.8 [id number] Unknown [id number] 2.16.8 [id number] Unknown [id number] 2.16.8 [id number] Unknown [id number] 2.16.8 [id number] Unknown [id number] 2.16.8 [id number] Unknown [id number] 2.16.8 [id number] Unknown [id number] 2.16.8 [id number] Unknown [id number] 2.16.8 [id number] Unknown [id number] 2.16.8 [id number] Unknown [id number] 2.16.8 [id number] Unknown [id number] 2.16.8 [id number] Unknown [id number] 2.16.8 [id number] Unknown [id number] 2.16.8 [id number] Unknown [id number] 2.16.8 [id number] Unknown [id number] 2.16.8 [id number] Social History Date Type Detail Facility Start: 04-09-2021 End: 01-22-2023 Tobacco smoking status AKIS Unknown if ever smoked [facility] Start: 06-12-2020 Non-smoker [facility] Start: 1955 Sex Assigned At Male [facility] Start: 03-16-2024 [facility] Medical Equipment Procedure Code Equipment Code Equipment Origin al Text Equipment Identifier Dates CLIP,ALBERTOYUMIKO SWIFT FDA Start: 06-19-2020 CLIP,ARNULFO SWIFT FDA Start: 06-19-2020 CLIP,ARNULFO SWIFT FDA Start: 06-19-2020 CLIP,ARNULFO SWIFT FDA Start: 06-19-2020 CLIP,ARNULFO SWIFT FDA Start: 06-19-2020 SEALANT,FLOSEAL HEMOSTATIC 5ML FDA Start: 06-19-2020 CLIP,HEMYUMIKO SWIFT FDA Start: 06-19-2020 CLIP,HEMYUMIKO SWIFT FDA Start: 06-19-2020 CLIP,ARNULFO SWIFT FDA Start: 06-19-2020 CLIP,ARNULFO SWIFT FDA Start: 06-19-2020 CLIP,ARNULFO SWIFT FDA Start: 06-19-2020 SEALANT,FLOSEAL HEMOSTATIC 5ML FDA Start: 06-19-2020 CLIP,HEMYUMIKO SWIFT FDA Start: 06-19-2020 CLIP,HEMYUMIKO SWIFT FDA Start: 06-19-2020 CLIP,ARNULFO SWIFT FDA Start: 06-19-2020 CLIP,ARNULFO SWIFT FDA Start: 06-19-2020 CLIPHEMYUMIKO SWIFT FDA Start: 06-19-2020 SEALANT,FLOSEAL HEMOSTATIC 5ML FDA Start: 06-19-2020 CLIPHEMYUMIKO SWIFT FDA Start: 06-19-2020 CLIP,HEMYUMIKO SWIFT FDA Start: 06-19-2020 CLIP,HEMOLOCK Samira SWIFT FDA Start: 06-19-2020 CLIP,HEMOLOCK Samira SWIFT FDA Start: 06-19-2020 CLIP,HEMOLOCK ME Hogan JAMISON FDA Start: 06-19-2020 SEALANT,FLOSEAL HEMOSTATIC 5ML FDA Start: 06-19-2020 CLIP,HEMOLOCK MARICARMEN SWIFT FDA Start: 06-19-2020 CLIP,HEMOLOCK MARICARMEN SWIFT FDA Start: 06-19-2020 CLIP,HEMOLOCK ME Hogan JAMISON FDA Start: 06-19-2020 CLIP,HEMOLOCK ME Hogan JAMISON FDA Start: 06-19-2020 CLIP,HEMOLOCK Samira SWIFT FDA Start: 06-19-2020 SEALANT,FLOSEAL HEMOSTATIC 5ML FDA Start: 06-19-2020 CLIP,HEMOLOELISA SWIFT FDA Start: 06-19-2020 CLIP,HEMOLOELISA SWIFT FDA Start: 06-19-2020 CLIP,HEMOLOCK Samira SWIFT FDA Start: 06-19-2020 CLIP,HEMOLOCK ME Hogan MAUROELISA FDA Start: 06-19-2020 CLIP,HEMOLOCK ME Hogan JAMISON FDA Start: 06-19-2020 SEALANT,FLOSEAL HEMOSTATIC 5ML FDA Start: 06-19-2020 CLIP,HEMOLOELISA SWIFT FDA Start: 06-19-2020 CLIP,HEMOLOCK MARICARMEN SWIFT FDA Start: 06-19-2020 CLIP,HEMOLOCK Samira SWIFT FDA Start: 06-19-2020 CLIP,HEMOLOCK Samira SWIFT FDA Start: 06-19-2020 CLIP,HEMOLOCK ME Hogan MAUROELISA FDA Start: 06-19-2020 SEALANT,FLOSEAL HEMOSTATIC 5ML FDA Start: 06-19-2020 CLIP,HEMOLOELISA SWIFT FDA Start: 06-19-2020 CLIP,HEMOLOCK MARICARMEN SWIFT FDA Start: 06-19-2020 CLIP,HEMOLOCK ME Hogan JAMISON FDA Start: 06-19-2020 CLIP,HEMOLOCK ME Hogan JAMISON FDA Start: 06-19-2020 CLIP,HEMOLOCK Samira SWIFT FDA Start: 06-19-2020 SEALANT,FLOSEAL HEMOSTATIC 5ML FDA Start: 06-19-2020 CLIP,HEMOLOCK LG JAMISON FDA Start: 06-19-2020 CLIP,HEMOLOCK MARICARMEN SWIFT FDA Start: 06-19-2020 CLIP,HEMOLOCK ME Hogan MAUROELISA FDA Start: 06-19-2020 CLIP,HEMOLOCK ME Samira SWIFT FDA Start: 06-19-2020 CLIP,HEMOLOCK ME Samira SWIFT FDA Start: 06-19-2020 SEALANT,FLOSEAL HEMOSTATIC 5ML FDA Start: 06-19-2020 CLIP,HEMOLOCK MARICARMEN MAUROELISA FDA Start: 06-19-2020 CLIP,HEMOLOCK MARICARMEN SWIFT FDA Start: 06-19-2020 CLIP,HEMOLOCK ME Hogan MAUROELISA FDA Start: 06-19-2020 CLIP,HEMOLOCK ME Hogan MAUROELISA FDA Start: 06-19-2020 CLIP,HEMOLOCK ME Samira SWIFT FDA Start: 06-19-2020 SEALANT,FLOSEAL HEMOSTATIC 5ML FDA Start: 06-19-2020 CLIP,HEMOLOCK MARICARMEN SWIFT FDA Start: 06-19-2020 CLIP,HEMOLOCK MARICARMEN SWIFT FDA Start: 06-19-2020 CLIP,HEMOLOCK ME Samira SWIFT FDA Start: 06-19-2020 CLIP,HEMOLOCK ME Samira SWIFT FDA Start: 06-19-2020 CLIP,HEMOLOCK ME Samira SWIFT FDA Start: 06-19-2020 SEALANT,FLOSEAL HEMOSTATIC 5ML FDA Start: 06-19-2020 CLIP,HEMOLOCK MARICARMEN SWIFT FDA Start: 06-19-2020 CLIP,HEMOLOCK MARICARMEN SWIFT FDA Start: 06-19-2020 CLIP,HEMOLOCK ME Samira SWIFT FDA Start: 06-19-2020 CLIP,HEMOLOCK ME Samira SWIFT FDA Start: 06-19-2020 CLIP,HEMOLOCK ME Samira SWIFT FDA Start: 06-19-2020 SEALANT,FLOSEAL HEMOSTATIC 5ML FDA Start: 06-19-2020 CLIP,HEMOLOCK MARICARMEN SWIFT FDA Start: 06-19-2020 CLIP,HEMOLOCK MARICARMEN SWIFT FDA Start: 06-19-2020 CLIP,HEMOLOCK ME Hogan JAMISON FDA Start: 06-19-2020 CLIP,HEMOLOCK ME Samira WADEELISA FDA Start: 06-19-2020 CLIP,HEMOLOCK Samira SWIFT FDA Start: 06-19-2020 SEALANT,FLOSEAL HEMOSTATIC 5ML FDA Start: 06-19-2020 CLIP,HEMOLOCK MARICARMEN SWIFT FDA Start: 06-19-2020 CLIP,HEMOLOCK MARICARMEN SWIFT FDA Start: 06-19-2020 CLIP,HEMOLOCK Samira SWIFT FDA Start: 06-19-2020 CLIP,HEMOLOCK Samira SWIFT FDA Start: 06-19-2020 CLIP,HEMOLOCK ME Hogan JAMISON FDA Start: 06-19-2020 SEALANT,FLOSEAL HEMOSTATIC 5ML FDA Start: 06-19-2020 CLIP,HEMOLOCK MARICARMEN SWIFT FDA Start: 06-19-2020 CLIP,HEMOLOCK MARICARMEN SWIFT FDA Start: 06-19-2020 CLIP,HEMOLOCK Samira SWIFT FDA Start: 06-19-2020 CLIP,HEMOLOCK Samira SWIFT FDA Start: 06-19-2020 CLIP,HEMOLOCK Samira SWIFT FDA Start: 06-19-2020 SEALANT,FLOSEAL HEMOSTATIC 5ML FDA Start: 06-19-2020 CLIP,HEMOLOCK MARICARMEN SWIFT FDA Start: 06-19-2020 CLIP,HEMOLOCK MARICARMEN SWIFT FDA Start: 06-19-2020 CLIP,HEMOLOCK Samira SWIFT FDA Start: 06-19-2020 CLIP,HEMOLOCK Samira SWIFT FDA Start: 06-19-2020 CLIP,HEMOLOCK ME Hogan JAMISON FDA Start: 06-19-2020 SEALANT,FLOSEAL HEMOSTATIC 5ML FDA Start: 06-19-2020 CLIP,HEMOLOCK MARICARMEN SWIFT FDA Start: 06-19-2020 CLIP,HEMOLOCK MARICARMEN SWIFT FDA Start: 06-19-2020 CLIP,HEMOLOCK ME Hogan JAMISON FDA Start: 06-19-2020 CLIP,HEMOLOCK Samira SWIFT FDA Start: 06-19-2020 CLIP,HEMOLOCK Samira SWIFT FDA Start: 06-19-2020 SEALANT,FLOSEAL HEMOSTATIC 5ML FDA Start: 06-19-2020 CLIP,HEMOLOCK MARICARMEN SWIFT FDA Start: 06-19-2020 CLIP,HEMOLOCK MARICARMEN SWIFT FDA Start: 06-19-2020 CLIP,HEMOLOCK Samira SWIFT FDA Start: 06-19-2020 CLIP,HEMOLOCK D JAMISON FDA Start: 06-19-2020 CLIP,HEMOLOCK D JAMISON FDA Start: 06-19-2020 SEALANT,FLOSEAL HEMOSTATIC 5ML FDA Start: 06-19-2020 CLIP,HEMOLOCK MARICARMEN SWIFT FDA Start: 06-19-2020 CLIP,HEMOLOCK MARICARMEN SWIFT FDA Start: 06-19-2020 CLIP,HEMOLOCK D JAMISON FDA Start: 06-19-2020 CLIP,HEMOLOCK ME Samira SWIFT FDA Start: 06-19-2020 CLIP,HEMOLOELISA SWIFT FDA Start: 06-19-2020 SEALANT,FLOSEAL HEMOSTATIC 5ML FDA Start: 06-19-2020 Clinical Note 02-23-2024 Note Date & Type Note Facility 02-23-2024 Note [facility] Medical Records Department [address] [place] [id number] History Physical Exam 02/23/24 0809 MR#: [id number] Acct: [id number] Name: FENG PARK Rep #: [id number] : [id number] 68 From: Sohail Malloy MD PCP: Dr. Tom Antonio MD Status:[facility] Location: [place] [address] History and Physical Date of Admission: 02/23/24 Intake Vital Signs 01/24/2409:02 02/02/2414:00 Height 6 ft 2 in 6 ft 3 in Weight: 195 lb BMI 24.3 BP 117/78 Blood Pressure Location Rt brachial Position Sitting Respiration 18 Pulse 100 Pulse Source Monitor Temp 97.6 F L Temp Source Temporal Pulse Oximetry (%) 95 Oxygen Delivery Method room air Intake Visit Reasons: DISCUSS HIATAL HERNIA SURGERY Chief Complaint: Discuss Hiatal Hernia Surgery Industrial Relations Officer Required: No Accompanied by: Is patient in pain?: No Allergies Sulfa (Sulfonamide Antibiotics) Adverse Reaction (Intermediate, Verified 02/03/24 14:01) Rashciprofloxacin (From Cipro) Adverse Reaction (Verified 02/03/24 14:01) Itching Medications ???Medication ???Instructions ???Recorded ???Confirmed ???Type aspirin 81 mg tablet,delayed 81 mg PO DAILY 02/12/16 02/03/24 History release losartan 25 mg tablet 25 mg PO QDAY #30 tabs 06/14/17 02/03/24 Rx simvastatin 20 mg tablet 20 mg PO QHS #30 tabs 06/14/17 02/03/24 Rx fluticasone propionate 50 1 spray intranasal QDAY PRN Nasal 12/27/17 02/03/24 History mcg/actuation nasal Congestion spray,suspension (Allergy Relief (fluticasone)) levothyroxine 50 mcg tablet 50 mcg PO DAILY 10/07/20 02/03/24 History pantoprazole 40 mg tablet,delayed 40 mg PO DAILY 01/25/24 02/03/24 History release Have you fallen in the past year?: No PFSH Medical History (Updated 02/03/24 @ 13:59 by Cata Mcallister) GERD (gastroesophageal reflux disease) Hiatal hernia with GERD Wears glasses Wears partial dentures Wears dentures Cancer Thyroid disease Arthritis Prostate disease High cholesterol Former smoker Leg cramps History of stress test History of echocardiogram Cardiology follow-up encounter Essential hypertension Hyperlipidemia Nonrheumatic aortic (valve) insufficiency Nonrheumatic mitral (valve) insufficiency History of bicuspid aortic valve Atherosclerotic heart disease of [place] coronary artery without angina pectoris Paroxysmal atrial fibrillation Surgical History (Updated 02/03/24 @ 13:59 by Cata Mcallister) History of esophagogastroduodenoscopy (EGD) History of prostatectomy History of aortic valve replacement with bioprosthetic valve ( 04/09/16) History of left heart catheterization ( 12/20/09) History of right and left heart catheterization Family History Father , age 57 CAD (coronary artery disease) Rheumatic heart diseaseMother , age 78 Diabetes Congestive heart failureSister , age 50, diabetes complications Diabetes Social History Smoking Status: Former smoker HPI HPI HPI: Patient is a 68-year-old male here to discuss hiatal hernia repair. He recently had EGD with evaluation. ROS General General: No weight change, appetite, fatigue, colon cancer, breast cancer or weakness HEENT HEENT: No difficulty swallowing, eye injury, eye surgery, swollen glands or hoarseness Endo Endocrine: Yes thyroid disease; No diabetes mellitus, thyroid cancer, Hair loss, heat intolerance or cold intolerance Skin Skin: No rash or changing moles Breast Breast: No left breast lump, right breast lump, nipple discharge, breast pain, abnormal mammogram, abnormal US or breast enlargement Musc Musculoskeletal: Yes back problems and arthritis; No rheumatoid arthritis, gout or joint pain Cardio Cardiovascular: Yes heart disease and high blood pressure; No murmur, pacemaker, atrial fibrillation, heart attack, heart stent, palpitations, shortness of breat with exertion or chest pain Additional Details: Bicuspid valve replacement approximately six years ago Psych Psychiatric: No depression, anxiety or hearing voices Resp Respiratory: No shortness of breath, No sleep apnea, No cough, No COPD, Yes asthma, Yes emphysema and No wheezing Gastro Gastrointestinal: Yes abdominal pain, Yes nausea or vomiting, No diarrhea, No constipation, No blood in stool, Yes acid reflux, No hemorrhoids, No ulcers, No gallbladder problem and No black,tarry stools Agustín Hematologic: No blood thinners, No blood disorders, No bleeding, No anemia and No blood clots Additional Details: Baby aspirin daily Neuro Neurologic: No system reviewed and no additional complaints, except as documented, No as per HPI, No abnormal gait, No abnormal hearing, No abnormal movements, No abnormal speech, No behavio (more content not included)... [facility] Evaluation note 03-31-2016 Note Date & Type Note Facility 03-31-2016 Evaluation note Diagnosis Onset Date Atherosclerotic heart diseas e of [place] coronary artery without angina pectoris chronic Essential hypertension chron ic History of aortic valve replacement with bioprosthetic valve March, chronic Hyperlipidemia chronic Paroxysmal atrial fibrillation chronic [facility] Work Phone: Evaluation note Note Date & Type Note Facility Evaluation note No assessment information availa ble [facility] Work Phone: Reason for referral (narrative) Note Date & Type Note Facility Reason for referral (narrative) No reason for referral information available [facility] Work Phone: Summary Purpose Family History No Family History Records Found Relationship Condition Age at Onset Recorded Date/T eloy father Coronary artery disease Unknown Rheumatic heart disease Unknown mother Diabetes mellitus Unknown Congestive heart failure Unknown sister Diabetes mellitus Unknown Advance Directives No Advanced Directives Records Found Advance Directive Response Recorded Date/ Time Advance Directives No April 11:44am Living Will No June 19 2:21pm Power of Roll Up Machine Operator No June 19, 2020 2:21pm Advance Directive Response Recorded Date/ Time Advance Directives No April 10:44am Living Will No June 19 1:21pm Power of Roll Up Machine Operator No June 19, 2020 1:21pm Advance Directive Response Recorded Date/ Time Advance Directives No April 11:44am Chief Complaint and Reason for Visit Chief Complaint PSA- MALIGNANT NEOPL ASM Chief Complaint PSA- MALIGNANT NEOPL ASM 9 M FU INT LABS Reason for Visit Atherosclerotic hear t disease of [place] coronary artery without angina pectoris Essential hypertension History of aortic valve replacement with bioprosthetic valve Hyperlipidemia Paroxysmal atrial fibrillation Chief Complaint PSA- MALIGNANT NEOPL ASM 9 M FU INT LABS ATHEROSCLEROSIS Reason for Visit Atherosclerotic hear t disease of [place] coronary artery without angina pectoris Essential hypertension History of aortic valve replacement with bioprosthetic valve Hyperlipidemia Paroxysmal atrial fibrillation Chief Complaint 9 M FU INT LABS ATHEROSCLEROSIS Reason for Visit Atherosclerotic hear t disease of [place] coronary artery without angina pectoris Essential hypertension History of aortic valve replacement with bioprosthetic valve Hyperlipidemia Paroxysmal atrial fibrillation Chief Complaint INT LABS ATHEROSCLEROSIS Chief Complaint 6 M FU LAB AND ABD XRAY Reason for Visit Atherosclerotic hear t disease of [place] coronary artery without angina pectoris Essential hypertension History of aortic valve replacement with bioprosthetic valve Hyperlipidemia Paroxysmal atrial fibrillation Chief Complaint 6 M FU LAB AND ABD XRAY DYSPEPSIA Reason for Visit Atherosclerotic hear t disease of [place] coronary artery without angina pectoris Essential hypertension History of aortic valve replacement with bioprosthetic valve Hyperlipidemia Paroxysmal atrial fibrillation Chief Complaint DYSPEPSIA Chief Complaint 6 M FU Z72.0 Reason for Visit Atherosclerotic hear t disease of [place] coronary artery without angina pectoris Essential hypertension History of aortic valve replacement with bioprosthetic valve Hyperlipidemia Paroxysmal atrial fibrillation Chief Complaint Z72.0 Chief Complaint Admit Date SOB January 02, 2025 8:0 9am Additional Source Comments (unrecognized sect ion and content) No Status Records FoundNo Status Records FoundNo Status Records Found INFORMATION SOURCE (unrecogn ized section and content) DATE CREATED AUTHOR 11/24/2017 [facility] [employer] DATE CREATED AUTHOR AUTHOR'S ORGANIZ ATION 08/29/2020 [facility] DATE CREATED AUTHOR AUTHOR'S ORGANIZ ATION 02/08/2025 [facility] Goals (unrecognized section and content) Goals may be documented in a n alternate sectionGoals may be documented in an alternate sectionGoals may be documented in an alternate sectionGoals may be documented in an alternate sectionGoals may be documented in an alternate sectionGoals may be documented in an alternate sectionGoals may be documented in an alternate sectionGoals may be documented in an alternate sectionGoals may be documented in an alternate sectionGoals may be documented in an alternate sectionGoals may be documented in an alternate sectionGoals may be documented in an alternate sectionGoals may be documented in an alternate sectionGoals may be documented in an alternate sectionGoals may be documented in an alternate sectionGoals may be documented in an alternate sectionGoals may be documented in an alternate sectionGoals may be documented in an alternate sectionGoals may be documented in an alternate section Care Teams (unrecognized sec tion and content) Team Status: Active Member Role Status Dates Dr. Edgar Antonio MD Family Provider Active Dr. Edgar Antonio MD Primary Care Provider Activ e Team Status: Inactive Member Role Status Dates Dr. Edgar Antonio MD Primary Care Provider, Refe rring Provider Active Valorie JAVIER, PA Attending Provider Active Team Status: Inactive Member Role Status Dates Dr. Edgar Antonio MD Primary Care Provider, Attending Provider, Referring Provider Active Team Status: Inactive Member Role Status Dates Dr. Edgar Antonio MD Primary Care Provider Activ e Dr. Johnnie Beyer MD Attending Provider Active Team Status: Inactive Member Role Status Dates Dr. Edgar Antonio MD Primary Care Provider, Atte nding Provider Active Team Status: Active Member Role Status Dates Dr. Edgar Antonio MD Primary Care Provider, Attending Provider, Referring Provider Active Team Status: Inactive Member Role Status Dates Dr. Edgar Antonio MD Primary Care Provider Activ e Dr. Johnnie Beyer MD Attending Provider, Referr ing Provider Active Team Status: Active Member Role/Relationship Status Dates Dr. Tmo Antonio MD Family Provider Active Dr. Tom Antonio MD Primary Care Provider Acti ve Team Status: Inactive Member Role/Relationship Status Dates Dr. Tom Antonio MD Primary Care Provider Acti ve Start: December 04, 2024 End: December 04, 2024 Dr. Tom Antonio MD Attending Provider Active Start: December 04, 2024 End: December 04, 2024 Dr. Tom Antonio MD Referring Provider Active Start: December 04, 2024 End: December 04, 2024 Team Status: Active Member Role/Relationship Status Dates Dr. Tom Antonio MD Primary Care Provider Acti ve Team Status: Inactive Member Role/Relationship Status Dates Dr. Tom Antonio MD Primary Care Provider Acti ve Start: January 02, 2025 End: January 02, 2025 Dr. Tom Antonio MD Attending Provider Active Start: January 02, 2025 End: January 02, 2025 Dr. Tom Antonio MD Referring Provider Active Start: January 02, 2025 End: January 02, 2025 FOR RECORDS PERTAINING TO PATIENTS WHO ARE [...] BE BASED ON THE PRIMARY CLINICAL RECORDS. [facility] [employer] [facility]. provides no warranty or guarantee of the accuracy or completeness of information in this document.
--- NOTE | 2025-02-09 09:39 | STRESSREP ---
Stress Test Report Date: 02/09/2025 Procedure: Exercise tolerance test/imaging study Indications: Dyspnea on exertion Consent: Per the patient Procedure: The patient exercised on a Marcial protocol for 5 minutes achieving a peak heart rate of 142 bpm (94% predicted maximal heart rate) with a peak blood pressure 220/110 mmHg and a peak MET capacity of 7.0 METs. The baseline ECG demonstrated sinus rhythm with incomplete right bundle branch block. The peak exercise ECG failed to show any diagnostic ischemic changes. Occasional PVCs noted during exercise and in recovery. The functional capacity was considered average for age. There was no chest discomfort with exercise however shortness of breath was reported. The examination was discontinued secondary to target heart rate being achieved. The patient was injected with 11.9 mCi of technetium 99m Cardiolite and subsequently rest SPECT Cardiolite nuclear imaging was obtained in the horizontal long, vertical long, and short axis views. Post-exercise, the patient was injected with 34.7 mCi of technetium 99m Cardiolite and subsequently stress SPECT Cardiolite nuclear imaging was obtained in the horizontal long, vertical long, and short axis views. A gated Cardiolite study at peak stress was obtained. Rest and stress SPECT Cardiolite nuclear imaging status post realignment, normalization, and attenuation correction, demonstrates the appearance of relative uniform tracer uptake and myocardial perfusion appearing within normal limits. There is end systolic thickening and brightening. The gated Cardiolite study demonstrates myocardial thickening and inward wall motion. The reported LVEF is 70%. Impression: 1. Technically adequate (percent predicted maximal heart rate greater than 85%) exercise tolerance test 2. Peak exercise ECG with no ischemic changes. Exaggerated blood pressure response to exercise. No chest pain reported however shortness of breath with exercise. 3. Occasional PVCs noted 4. Rest and stress SPECT Cardiolite nuclear imaging demonstrate relative uniform tracer uptake and myocardial perfusion appearing within normal limits. 5. The gated Cardiolite study reports an LVEF of 70%. This note was generated with [employer] software. It may contain incorrect words, spelling, and punctuation that were not noted in checking the note before signing.
== END | disposition home or self-care (01) ==
LOC: CVS 06:32
PROVIDERS: PCP Family Medicine; Referring Provider Family Medicine; Visit Provider Family Medicine
DX: R06.02 Shortness of breath (principal)
CPT/HCPCS: 78452; 93017; A9500; A4216

== ENCOUNTER → 2025-03-06 | Outpatient (CLI) | payer MEDICARE, OTHER, SELFPAY ==
[2025-03-06 15:42] LABS: Anion Gap 11 (5-15); BUN 24 mg/dL (4-19); BUN/Creat Ratio 22.4 RATIO (10-20); Calcium,Total 9.2 mg/dL (7.6-11.0); Carbon Dioxide 23.0 mmol/L (21.0-32.0); Chloride 105 mmol/L (98-108); Cholesterol 156 mg/dL (<=200); Glucose 95 mg/dL (70-99); Low Density Lipoprotein Calc. 89 mg/dL; Potassium 4.5 mmol/L (3.3-5.1); Triglycerides 56 mg/dL; Very Low Density Lipoprotein 11 mg/dL (5-40); cholesterol:hdl ratio screen 2.81
== END | disposition home or self-care (01) ==
LOC: MFPLAB 11:37
PROVIDERS: PCP Family Medicine; Visit Provider Family Medicine
DX: E03.9 Hypothyroidism, unspecified (principal); I10 Essential (primary) hypertension
CPT/HCPCS: 36415; 80048; 80061; 84443

== ENCOUNTER → 2025-03-14 | Outpatient (CLI) | payer MEDICARE, OTHER, SELFPAY ==
[2025-03-14 10:36] LABS: Anion Gap 12 (5-15); BUN 23 mg/dL (4-19); BUN/Creat Ratio 21.4 RATIO (10-20); Calcium,Total 9.5 mg/dL (7.6-11.0); Carbon Dioxide 25.2 mmol/L (21.0-32.0); Chloride 101 mmol/L (98-108); Glucose 92 mg/dL (70-99); Potassium 4.0 mmol/L (3.3-5.1)
== END | disposition home or self-care (01) ==
LOC: LAB 07:58
PROVIDERS: PCP Family Medicine; Referring Provider Physician Assistant Medical; Visit Provider Physician Assistant Medical
DX: I10 Essential (primary) hypertension (principal)
CPT/HCPCS: 36415; 80048

== ENCOUNTER → 2025-05-15 | Outpatient (CLI) | payer MEDICARE, OTHER, SELFPAY ==
[2025-05-15 16:00] LABS: PSA,Total- Diagnostic < 0.02 ng/mL (0.00-4.00)
== END | disposition home or self-care (01) ==
LOC: MTLAB 11:02
PROVIDERS: PCP Family Medicine; Referring Provider Urology; Visit Provider Urology
DX: C61 Malignant neoplasm of prostate (principal)
CPT/HCPCS: 36415; 84153